=== PATIENT | female | born 1945 | race African-American/Black ===

== ENCOUNTER 2018-03-09 20:38 | Inpatient (IN) | payer MEDICARE, OTHER ==
[~2018-03-09] VITALS: Ht 165.1 cm; Wt 53.5 kg
--- NOTE | 2018-03-09 20:59 | Emergency Room Report ---
History of Present Illness General Chief Complaint: General Complaint Source: Patient, EMS Present Illness HPI Patient is a 72-year-old female brought in by EMS after increased difficulty breathing and increased confusion. Patient prior history of COPD. The patient was sent in by Dr. Carranza. The patient is normally alert and oriented and uses 2 L of oxygen. Patient was noted to have increased oxygen requirement as well as increased expiratory difficulty. Patient had the patient was noted to have some increased confusion. She was noted to have multiple medication allergies. Allergies: Coded Allergies: CODEINE (Verified Allergy, Unknown, 03/09/18) PENICILLINS (Verified Allergy, Unknown, 03/09/18) SULFA (SULFONAMIDE ANTIBIOTICS) (Verified Allergy, Unknown, 03/09/18) Patient History Past Medical History: see triage record Last Menstrual Period: n/a Reviewed Nursing Documentation: PMH: Agreed; PSxH: Agreed Nursing Documentation-PMH Hx COPD: Yes - copd Review of Systems All Other Systems: limited - by mental status Physical Exam Vital Signs Date Time Temp Pulse Resp B/P (MAP) Pulse Ox O2 Delivery O2 Flow Rate FiO2 03/09/18 20:46 97.9 92 18 140/87 96 Nasal Cannula 3.0 Sp02 EP Interpretation: reviewed, normal General Appearance: normal inspection, alert, obese, Chronically Ill Head: atraumatic ENT: normal ENT inspection, hearing grossly normal, normal voice Neck: normal inspection, full range of motion, supple, no bony tend Respiratory: accessory muscle use, wheezing Cardiovascular #1: regular rate, rhythm, no edema Gastrointestinal: normal inspection, normal bowel sounds, non tender, soft, no guarding, no hernia Genitourinary: no CVA tenderness Musculoskeletal: normal inspection, back normal, normal range of motion Neurologic: normal inspection, alert, oriented x3, responsive, 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 Differential included but was not limited to anemia, pneumonia, pneumothorax, myocardial infarction, pericardial effusion, congestive heart failure, acidosis Because of complexity of patient's case laboratory testing and imaging studies were ordered.Patient's laboratory testing was notable for elevated CO2 level on arterial blood gas. The patient was given breathing treatments. Solu-Medrol was ordered. Dr. Carranza was contacted for inpatient management due to need for inpatient monitoring and treatment. Labs Test 03/09/18 21:31 03/09/18 23:45 03/10/18 02:00 Arterial Blood pH 7.336 (7.350-7.450) Arterial Blood Partial Pressure CO2 86.3 mmHg (35.0-45.0) Arterial Blood Partial Pressure O2 102.5 mmHg (75.0-100.0) Arterial Blood HCO3 45.1 mmol/L (22.0-26.0) Arterial Blood Oxygen Saturation 97.0 % (95-100) Arterial Blood Base Excess 15.6 (-2-2) Dipesh Test Positive White Blood Count 5.0 K/UL (4.8-10.8) Red Blood Count 4.11 M/UL (4.20-5.40) Hemoglobin 11.2 G/DL (12.0-16.0) Hematocrit 36.6 % (37.0-47.0) Mean Corpuscular Volume 89 FL (80-99) Mean Corpuscular Hemoglobin 27.3 PG (27.0-31.0) Mean Corpuscular Hemoglobin Concent 30.7 G/DL (32.0-36.0) Red Cell Distribution Width 12.9 % (11.6-14.8) Platelet Count 221 K/UL (150-450) Mean Platelet Volume 8.8 FL (6.5-10.1) Neutrophils (%) (Auto) 30.9 % (45.0-75.0) Lymphocytes (%) (Auto) 41.3 % (20.0-45.0) Monocytes (%) (Auto) 15.2 % (1.0-10.0) Eosinophils (%) (Auto) 9.8 % (0.0-3.0) Basophils (%) (Auto) 2.8 % (0.0-2.0) Sodium Level 143 MMOL/L (136-145) Potassium Level 3.0 MMOL/L (3.5-5.1) Chloride Level 99 MMOL/L (98-107) Carbon Dioxide Level 40 MMOL/L (21-32) Anion Gap 3 mmol/L (5-15) Blood Urea Nitrogen 9 mg/dL (7-18) Creatinine 0.6 MG/DL (0.55-1.30) Estimat Glomerular Filtration Rate mL/min (>60) Glucose Level 152 MG/DL (74-106) Lactic Acid Level 1.40 mmol/L (0.4-2.0) Calcium Level 9.1 MG/DL (8.5-10.1) Phosphorus Level 4.4 MG/DL (2.5-4.9) Magnesium Level 1.3 MG/DL (1.8-2.4) Total Bilirubin 0.3 MG/DL (0.2-1.0) Aspartate Amino Transf (AST/SGOT) 37 U/L (15-37) Alanine Aminotransferase (ALT/SGPT) 16 U/L (12-78) Alkaline Phosphatase 62 U/L (46-116) Total Creatine Kinase 197 U/L (26-308) Creatine Kinase MB 3.8 NG/ML (0.0-3.6) Creatine Kinase MB Relative Index 1.9 Troponin I 0.018 ng/mL (0.000-0.056) Pro-B-Type Natriuretic Peptide 115 pg/mL (0-125) Total Protein 7.1 G/DL (6.4-8.2) Albumin 2.7 G/DL (3.4-5.0) Globulin 4.4 g/dL Albumin/Globulin Ratio 0.6 (1.0-2.7) Urine Color Yellow Urine Appearance Clear Urine pH 8 (4.5-8.0) Urine Specific [place] 1.015 (1.005-1.035) Urine Protein Negative (NEGATIVE) Urine Glucose (UA) Negative (NEGATIVE) Urine Ketones Negative (NEGATIVE) Urine Blood Negative (NEGATIVE) Urine Nitrite Negative (NEGATIVE) Urine Bilirubin Negative (NEGATIVE) Urine Urobilinogen 8 MG/DL (0.0-1.0) Urine Leukocyte Esterase Negative (NEGATIVE) Last Vital Signs Date Time Temp Pulse Resp B/P (MAP) Pulse Ox O2 Delivery O2 Flow Rate FiO2 03/09/18 20:46 97.9 92 18 140/87 96 Nasal Cannula 3.0 Status: unchanged Disposition: ADMITTED INPATIENT Condition: Serious Freddy Cisneros MD Mar 09, 2018 20:59
[2018-03-09 21:00] VITALS: BP 140/87
[2018-03-09] MEDS ORDERED: Albuterol/Ipratropium 3ml neb HHN ONE (21:00)
[2018-03-09] MEDS ORDERED: Solu-MEDROL 125mg Inj IVP ONE (21:15)
[2018-03-09] MEDS ORDERED: Albuterol ud Inhalation HHN ONE (22:45)
[2018-03-09 22:50] VITALS: BP 145/83
[2018-03-10] VITALS (8 sets, daily range): BP systolic 77–140; BP diastolic 79–85
[2018-03-10 00:05] LABS: BASOPHILS % (AUTO) 2.8 % (0.0-2.0); EOSINOPHILS % (AUTO) 9.8 % (0.0-3.0); HEMATOCRIT 36.6 % (37.0-47.0); HEMOGLOBIN 11.2 G/DL (12.0-16.0); LYMPHOCYTES % (AUTO) 41.3 % (20.0-45.0); MEAN CORPUSCULAR VOLUME 89 FL (80-99); MONOCYTES % (AUTO) 15.2 % (1.0-10.0); NEUTROPHILS % (AUTO) 30.9 % (45.0-75.0); PLATELET COUNT 221 K/UL (150-450); RED BLOOD COUNT 4.11 M/UL (4.20-5.40); RED CELL DISTRIBUTION WIDTH 12.9 % (11.6-14.8)
[2018-03-10 00:34] LABS: ALANINE AMINOTRANSFERASE 16 U/L (12-78); ALBUMIN 2.7 G/DL (3.4-5.0); ALBUMIN/GLOBULIN RATIO 0.6 (1.0-2.7); ALKALINE PHOSPHATASE 62 U/L (46-116); ANION GAP 3 mmol/L (5-15); ASPARTATE AMINO TRANSFERASE 37 U/L (15-37); BILIRUBIN,TOTAL 0.3 MG/DL (0.2-1.0); BLOOD UREA NITROGEN 9 mg/dL (7-18); CALCIUM 9.1 MG/DL (8.5-10.1); CHLORIDE 99 MMOL/L (98-107); CKMB 3.8 NG/ML (0.0-3.6); CREATINE KINASE 197 U/L (26-308); CREATININE 0.6 MG/DL (0.55-1.30); PHOSPHORUS 4.4 MG/DL (2.5-4.9); SODIUM 143 MMOL/L (136-145)
[2018-03-10 00:35] LABS: CARBON DIOXIDE 40 MMOL/L (21-32)
[2018-03-10 02:15] LABS: APPEARANCE,URINE CLEAR; BILIRUBIN, URINE NEGATIVE (NEGATIVE); GLUCOSE, URINE (UA) NEGATIVE (NEGATIVE); KETONES,URINE NEGATIVE (NEGATIVE); LEUKOCYTE ESTERASE ,URINE NEGATIVE (NEGATIVE); NITRITE,URINE NEGATIVE (NEGATIVE); PH,URINE 8 (4.5-8.0); PROTEIN,URINE NEGATIVE (NEGATIVE); UROBILINOGEN,URINE 8 MG/DL (0.0-1.0)
[2018-03-10 02:16] LABS: COLOR,URINE YELLOW
[2018-03-10] MEDS ORDERED: BISACODYL5 MG RECTAL (04:58)
[2018-03-10] MEDS ORDERED: ASPIRIN81 MG ORAL (04:58)
[2018-03-10] MEDS ORDERED: CATAPRES-TTS 11 EACH TDERMAL (04:58)
[2018-03-10] MEDS ORDERED: ATIVAN0.5 MG ORAL (04:58)
[2018-03-10] MEDS ORDERED: DOCUSATE SODIU100 MG ORAL (04:58)
[2018-03-10] MEDS ORDERED: BUDESONIDE0.25 MG/2 IH (04:58)
[2018-03-10] MEDS ORDERED: AMLODIPINE BESY10 MG ORAL (04:58)
[2018-03-10] MEDS ORDERED: GABAPENTIN300 MG ORAL (05:02)
[2018-03-10] MEDS ORDERED: FOLIC ACID1 MG ORAL (05:02)
[2018-03-10] MEDS ORDERED: MULTIVITAMINS1 EAC8 ORAL (05:02)
[2018-03-10] MEDS ORDERED: MILK OF MA400 MG/51 ORAL (05:02)
[2018-03-10] MEDS ORDERED: TYLENOL325 MG ORAL (05:06)
[2018-03-10] MEDS ORDERED: ASCORBIC ACID500 MG ORAL (05:06)
[2018-03-10] MEDS ORDERED: LORazepam 0.5mg tab ORAL PRN (05:15)
[2018-03-10] MEDS ORDERED: Milk of Magnesia 30ml Ud ORAL PRN (05:15)
[2018-03-10] MEDS: NovoLOG Insulin Flexpen SUBQ SCH ×7 (06:30→17:35)
[2018-03-10 07:20] LABS: BASOPHILS % (AUTO) 3.7 % (0.0-2.0); EOSINOPHILS % (AUTO) 11.4 % (0.0-3.0); HEMATOCRIT 44.3 % (37.0-47.0); HEMOGLOBIN 13.4 G/DL (12.0-16.0); LYMPHOCYTES % (AUTO) 44.3 % (20.0-45.0); MEAN CORPUSCULAR VOLUME 89 FL (80-99); MONOCYTES % (AUTO) 10.9 % (1.0-10.0); NEUTROPHILS % (AUTO) 29.7 % (45.0-75.0); PLATELET COUNT 233 K/UL (150-450); RED BLOOD COUNT 4.99 M/UL (4.20-5.40); RED CELL DISTRIBUTION WIDTH 13.2 % (11.6-14.8); WHITE BLOOD COUNT 4.8 K/UL (4.8-10.8)
[2018-03-10] MEDS: Albuterol/Ipratropium 3ml neb HHN SCH ×5 (07:20→23:06)
[2018-03-10 07:25] LABS: ALANINE AMINOTRANSFERASE 27 U/L (12-78); ALBUMIN 3.2 G/DL (3.4-5.0); ALBUMIN/GLOBULIN RATIO 0.6 (1.0-2.7); ALKALINE PHOSPHATASE 72 U/L (46-116); ANION GAP 4 mmol/L (5-15); ASPARTATE AMINO TRANSFERASE 44 U/L (15-37); BILIRUBIN,TOTAL 0.3 MG/DL (0.2-1.0); BLOOD UREA NITROGEN 9 mg/dL (7-18); CALCIUM 9.6 MG/DL (8.5-10.1); CARBON DIOXIDE 40 MMOL/L (21-32); CHLORIDE 98 MMOL/L (98-107); CREATININE 0.7 MG/DL (0.55-1.30); POTASSIUM 3.6 MMOL/L (3.5-5.1); SODIUM 142 MMOL/L (136-145)
[2018-03-10] MEDS ORDERED: Solu-MEDROL 125mg Inj IVP SCH (09:00)
[2018-03-10] MEDS: Aspirin Baby 81mg ORAL SCH (09:46)
[2018-03-10] MEDS: Docusate 100mg cap ORAL SCH ×2 (09:48→17:33)
--- NOTE | 2018-03-10 09:48 | History & Physical ---
History and Physical History & Physicial patient is seen and examined. Full Dictation in progress Bri Carranza MD Mar 10, 2018 09:48
[2018-03-10] MEDS: Enoxaparin 40mg Inj SUBQ SCH (09:49)
[2018-03-10] MEDS: Ascorbic Acid 500mg tab ORAL SCH (09:53)
--- NOTE | 2018-03-10 09:55 | General Progress Note ---
Assessment/Plan Assessment/Plan HP Dictation completed # [id number] A/P: Acute COPD exacerbation Bronchitis End Stage COPD- Opt out of hospice care Full Code ID and pulmonary services are notified Subjective Allergies: Coded Allergies: CODEINE (Verified Allergy, Unknown, 03/09/18) PENICILLINS (Verified Allergy, Unknown, 03/09/18) SULFA (SULFONAMIDE ANTIBIOTICS) (Verified Allergy, Unknown, 03/09/18) Objective Last 24 Hour Vital Signs Date Time Temp Pulse Resp B/P (MAP) Pulse Ox O2 Delivery O2 Flow Rate FiO2 03/10/18 07:25 94 24 100 Nasal Cannula 2.0 28 03/10/18 07:20 91 26 100 Nasal Cannula 2.0 28 03/10/18 04:00 98.3 102 18 129/79 (96) 97 03/10/18 04:00 101 03/10/18 03:09 Nasal Cannula 2.0 03/10/18 02:30 98.1 79 22 133/85 (101) 100 03/10/18 02:15 97.9 69 18 136/85 96 Nasal Cannula 3.0 30 03/10/18 02:15 97.9 69 18 136/85 96 Nasal Cannula 3.0 03/10/18 00:51 98 94 03/10/18 00:30 97.9 69 18 137/79 96 Nasal Cannula 3.0 03/10/18 00:30 97.9 73 18 137/79 96 Nasal Cannula 3.0 03/10/18 00:16 98 20 93 Facial 30 03/10/18 00:12 98 22 98 Nasal Cannula 1.0 03/10/18 00:00 88 27 94 Nasal Cannula 2.0 28 03/09/18 22:50 97.9 73 18 145/83 96 Nasal Cannula 3.0 03/09/18 22:50 97.9 78 18 145/83 96 Nasal Cannula 3.0 03/09/18 21:35 98 20 98 Facial 30 03/09/18 21:32 97 23 100 Bi-pap 30 03/09/18 21:20 96 27 Nasal Cannula 3.0 32 03/09/18 21:20 96 27 100 Nasal Cannula 3.0 32 03/09/18 21:00 92 18 Nasal Cannula 3.0 03/09/18 21:00 97.9 73 18 140/87 96 Nasal Cannula 3.0 03/09/18 20:46 97.9 92 18 140/87 96 Nasal Cannula 3.0 Intake and Output 03/09/18 03/10/18 19:00 07:00 Intake Total 150 ml Balance 150 ml Intake Oral 150 ml # Voids 2 Laboratory Tests 03/09/18 21:31: Arterial Blood pH 7.336L, Arterial Blood Partial Pressure CO2 86.3*H, Arterial Blood Partial Pressure O2 102.5H, Arterial Blood HCO3 45.1*H, Arterial Blood Oxygen Saturation 97.0, Arterial Blood Base Excess 15.6*H, Dipesh Test Positive 03/09/18 23:45: White Blood Count 5.0, Red Blood Count 4.11L, Hemoglobin 11.2L, Hematocrit 36.6L , Mean Corpuscular Volume 89, Mean Corpuscular Hemoglobin 27.3, Mean Corpuscular Hemoglobin Concent 30.7L, Red Cell Distribution Width 12.9, Platelet Count 221, Mean Platelet Volume 8.8, Neutrophils (%) (Auto) 30.9L, Lymphocytes (%) (Auto) 41.3, Monocytes (%) (Auto) 15.2H, Eosinophils (%) (Auto) 9.8H, Basophils (%) (Auto) 2.8H, Sodium Level 143, Potassium Level 3.0L, Chloride Level 99, Carbon Dioxide Level 40H, Anion Gap 3L, Blood Urea Nitrogen 9 , Creatinine 0.6, Estimat Glomerular Filtration Rate , Glucose Level 152H, Lactic Acid Level 1.40, Calcium Level 9.1, Phosphorus Level 4.4, Magnesium Level 1.3L, Total Bilirubin 0.3, Aspartate Amino Transf (AST/SGOT) 37, Alanine Aminotransferase (ALT/SGPT) 16, Alkaline Phosphatase 62, Total Creatine Kinase 197, Creatine Kinase MB 3.8H, Creatine Kinase MB Relative Index 1.9, Troponin I 0.018, Pro-B-Type Natriuretic Peptide 115, Total Protein 7.1, Albumin 2.7L, Globulin 4.4, Albumin/Globulin Ratio 0.6L 03/10/18 02:00: Urine Color Yellow, Urine Appearance Clear, Urine pH 8, Urine Specific [place] 1.015, Urine Protein Negative, Urine Glucose (UA) Negative, Urine Ketones Negative, Urine Blood Negative, Urine Nitrite Negative, Urine Bilirubin Negative , Urine Urobilinogen 8H, Urine Leukocyte Esterase Negative 03/10/18 07:01: White Blood Count 4.8, Red Blood Count 4.99, Hemoglobin 13.4, Hematocrit 44.3, Mean Corpuscular Volume 89, Mean Corpuscular Hemoglobin 26.8L, Mean Corpuscular Hemoglobin Concent 30.2L, Red Cell Distribution Width 13.2, Platelet Count 233, Mean Platelet Volume 8.5, Neutrophils (%) (Auto) 29.7L, Lymphocytes (%) (Auto) 44.3, Monocytes (%) (Auto) 10.9H, Eosinophils (%) (Auto) 11.4H, Basophils (%) ( Auto) 3.7H, Sodium Level 142, Potassium Level 3.6, Chloride Level 98, Carbon Dioxide Level 40H, Anion Gap 4L, Blood Urea Nitrogen 9, Creatinine 0.7, Estimat Glomerular Filtration Rate , Glucose Level 105, Calcium Level 9.6, Total Bilirubin 0.3, Aspartate Amino Transf (AST/SGOT) 44H, Alanine Aminotransferase ( ALT/SGPT) 27, Alkaline Phosphatase 72, Total Protein 8.6H, Albumin 3.2L, Globulin 5.4, Albumin/Globulin Ratio 0.6L Height (Feet): 5 Height (Inches): 5.00 Weight (Pounds): 118 Bri Carranza MD Mar 10, 2018 09:55
[2018-03-10] MEDS ORDERED: Azithromycin 250mg tab ORAL SCH (10:31)
--- NOTE | 2018-03-10 10:34 | Consultation ---
Consult Note Consult Note [facility] 03/10/18 REFERRED BY: Bri Carranza MD REASON FOR CONSULTATION: COPD exacerbation HPI: 72 F former smoker NHR with COPD on home O2 p/w AMS 2/2 COPD exacerbation. + cough, + SOB, + wheezing, no FC, no CP, no NVDC Received Levaquin, HHN's and IV steroids in the ER with some improvement PMH: COPD, HTN SHx: NHR, former tobacco ALL: CODEINE, PCN, SULFA Active Scripts Medications Dose Route/Sig Max Daily Dose Days Date Category Ascorbic Acid* (Ascorbic Acid) 500 Mg Tablet 500 Mg ORAL DAILY 03/10/18 Reported Tylenol (Acetaminophen) 325 Mg Tablet 325 Mg ORAL Q4HR PRN 03/10/18 Reported Multivitamins With Minerals* (Multivitamin With Minerals) 1 Each Tablet 1 Tab ORAL DAILY 03/10/18 Reported Milk Of Magnesia* (Magnesium Hydroxide) 400 Mg/5 Ml Oral.susp 30 Ml ORAL DAILY PRN 03/10/18 Reported Gabapentin* (Gabapentin) 300 Mg Capsule 300 Mg ORAL THREE TIMES A DAY 03/10/18 Reported Folic Acid* (Folic Acid) 1 Mg Tablet 1 Mg ORAL DAILY 03/10/18 Reported Dulcolax* (Bisacodyl) 5 Mg Tablet.dr 10 Mg RECTAL DAILY PRN 03/10/18 Reported Docusate Sodium* (Docusate Sodium) 100 Mg Capsule 100 Mg ORAL TWICE A DAY 03/10/18 Reported [id number]-9* (Clonidine) 1 Each Patch.tdwk 1 Patch TDERMAL ONCE A WEEK 03/10/18 Reported Budesonide 0.25 Mg/2 Ml Ampul.neb 0.25 Mg IH BID 03/10/18 Reported Ativan* (Lorazepam) 0.5 Mg Tablet 0.5 Mg ORAL Q8HR PRN 03/10/18 Reported Aspirin* (Aspirin) 81 Mg Tab.chew 81 Mg ORAL DAILY 03/10/18 Reported Amlodipine Besylate* (Amlodipine Besylate) 10 Mg Tablet 10 Mg ORAL DAILY 03/10/18 Reported ROS: Neg other than HPI PE: Last Vital Signs Date Time Temp Pulse Resp B/P (MAP) Pulse Ox O2 Delivery O2 Flow Rate FiO2 03/10/18 10:05 136/80 03/10/18 09:47 101 11/21/18 07:25 24 100 Nasal Cannula 2.0 28 03/10/18 04:00 98.3 NAD, awake NC/AT, OPC c MMM Supple s LAD or JVD CTA but distant RRR S/NT/ND c NABS No C/C/E Laboratory Tests Test 03/09/18 21:31 03/09/18 23:45 03/10/18 02:00 03/10/18 07:01 Arterial Blood pH 7.336 (7.350-7.450) Arterial Blood Partial Pressure CO2 86.3 mmHg (35.0-45.0) *H Arterial Blood Partial Pressure O2 102.5 mmHg (75.0-100.0) H Arterial Blood HCO3 45.1 mmol/L (22.0-26.0) *H Arterial Blood Oxygen Saturation 97.0 % (95-100) Arterial Blood Base Excess 15.6 (-2-2) *H Dipesh Test Positive White Blood Count 5.0 K/UL (4.8-10.8) 4.8 K/UL (4.8-10.8) Red Blood Count 4.11 M/UL (4.20-5.40) L 4.99 M/UL (4.20-5.40) Hemoglobin 11.2 G/DL (12.0-16.0) L 13.4 G/DL (12.0-16.0) Hematocrit 36.6 % (37.0-47.0) L 44.3 % (37.0-47.0) Mean Corpuscular Volume 89 FL (80-99) 89 FL (80-99) Mean Corpuscular Hemoglobin 27.3 PG (27.0-31.0) 26.8 PG (27.0-31.0) L Mean Corpuscular Hemoglobin Concent 30.7 G/DL (32.0-36.0) L 30.2 G/DL (32.0-36.0) L Red Cell Distribution Width 12.9 % (11.6-14.8) 13.2 % (11.6-14.8) Platelet Count 221 K/UL (150-450) 233 K/UL (150-450) Mean Platelet Volume 8.8 FL (6.5-10.1) 8.5 FL (6.5-10.1) Neutrophils (%) (Auto) 30.9 % (45.0-75.0) L 29.7 % (45.0-75.0) L Lymphocytes (%) (Auto) 41.3 % (20.0-45.0) 44.3 % (20.0-45.0) Monocytes (%) (Auto) 15.2 % (1.0-10.0) H 10.9 % (1.0-10.0) H Eosinophils (%) (Auto) 9.8 % (0.0-3.0) H 11.4 % (0.0-3.0) H Basophils (%) (Auto) 2.8 % (0.0-2.0) H 3.7 % (0.0-2.0) H Sodium Level 143 MMOL/L (136-145) 142 MMOL/L (136-145) Potassium Level 3.0 MMOL/L (3.5-5.1) L 3.6 MMOL/L (3.5-5.1) Chloride Level 99 MMOL/L (98-107) 98 MMOL/L (98-107) Carbon Dioxide Level 40 MMOL/L (21-32) H 40 MMOL/L (21-32) H Anion Gap 3 mmol/L (5-15) L 4 mmol/L (5-15) L Blood Urea Nitrogen 9 mg/dL (7-18) 9 mg/dL (7-18) Creatinine 0.6 MG/DL (0.55-1.30) 0.7 MG/DL (0.55-1.30) Estimat Glomerular Filtration Rate mL/min (>60) mL/min (>60) Glucose Level 152 MG/DL (74-106) H 105 MG/DL (74-106) Lactic Acid Level 1.40 mmol/L (0.4-2.0) Calcium Level 9.1 MG/DL (8.5-10.1) 9.6 MG/DL (8.5-10.1) Phosphorus Level 4.4 MG/DL (2.5-4.9) Magnesium Level 1.3 MG/DL (1.8-2.4) L Total Bilirubin 0.3 MG/DL (0.2-1.0) 0.3 MG/DL (0.2-1.0) Aspartate Amino Transf (AST/SGOT) 37 U/L (15-37) 44 U/L (15-37) H Alanine Aminotransferase (ALT/SGPT) 16 U/L (12-78) 27 U/L (12-78) Alkaline Phosphatase 62 U/L (46-116) 72 U/L (46-116) Total Creatine Kinase 197 U/L (26-308) Creatine Kinase MB 3.8 NG/ML (0.0-3.6) H Creatine Kinase MB Relative Index 1.9 Troponin I 0.018 ng/mL (0.000-0.056) Pro-B-Type Natriuretic Peptide 115 pg/mL (0-125) Total Protein 7.1 G/DL (6.4-8.2) 8.6 G/DL (6.4-8.2) H Albumin 2.7 G/DL (3.4-5.0) L 3.2 G/DL (3.4-5.0) L Globulin 4.4 g/dL 5.4 g/dL Albumin/Globulin Ratio 0.6 (1.0-2.7) L 0.6 (1.0-2.7) L Urine Color Yellow Urine Appearance Clear Urine pH 8 (4.5-8.0) Urine Specific [place] 1.015 (1.005-1.035) Urine Protein Negative (NEGATIVE) Urine Glucose (UA) Negative (NEGATIVE) Urine Ketones Negative (NEGATIVE) Urine Blood Negative (NEGATIVE) Urine Nitrite Negative (NEGATIVE) Urine Bilirubin Negative (NEGATIVE) Urine Urobilinogen 8 MG/DL (0.0-1.0) H Urine Leukocyte Esterase Negative (NEGATIVE) Assessment/Plan ASSESSMENT: COPD on home O2 with ACUTE exacerbation Chronic hypercapnic and hypoxemic respiratory failure Protein calorie malnutrition senior living resident Former smoker HTN PLAN: RTC and PRN HHN's Decrease SM to 40 IV TID and taper D/C Levaquin, start Azithro (D1/5) Continue BUDESONIDE HHN BID Start Spiriva, should optimize regimen as an outpatient (should likely be on LABA/LAMA/ICS) Monitor for signs of a respiratory infection BiPAP 12/5 qHS and PRN, needs to continue nocturnal NIPPV @ facility Check CT CHEST given recurrent recent exacerbations Check TTE to evaluate for PHTN Monitor volumes Continue to abstain from smoking FC, continue to discuss GOC MD Jose Maria Beckham Ashkan L. MD Mar 10, 2018 10:34
--- NOTE | 2018-03-10 10:52 | Diagnostic Imaging Report ---
Indication: Reason For Exam: SOB Technique: One view of the chest Comparison: none Findings: No acute infiltrates, effusions, or congestion. Tortuous calcified aorta. Normal heart size. Upper mediastinum unremarkable. Impression: No acute process.
[2018-03-10] MEDS: Budesonide HHN 0.25mg/2ml ud INH SCH ×2 (11:46→20:12)
[2018-03-10] MEDS: Solu-MEDROL 40mg Inj IVP SCH ×2 (12:22→17:33)
--- NOTE | 2018-03-10 12:30 | History and Physical Report ---
DATE OF ADMISSION: 03/09/2018 SOURCE OF INFORMATION: The patient and EMR. HISTORY OF PRESENT ILLNESS: The patient is a 72-year-old female with a history of end-stage COPD. The patient had been on hospice in the past. However, out of the service and she is Full Code right now. The patient residing in a long-term facility and the patient requested to be transferred to the hospital because of worsening of shortness of breath. At the initial evaluation in the emergency room, vital signs reportedly stable and the patient's baseline is on the 2 liters of nasal cannula. Oxygen on nasal cannula with the pulse oximetry of 95% - 98% on oxygen. Initial blood work in the emergency room showed WBC of 5. The initial chest x-ray is pending and the patient denies any fever or chills. The patient denies any nausea or vomitus. Denies any diarrhea or constipation. Denies any abnormal bleeding. REVIEW OF SYSTEMS: All 12 elements of review of systems reviewed. Pertinent positive and negative as above. ALLERGIES: To codeine, penicillin, and sulfa. PAST MEDICAL HISTORY: End-stage COPD, multiple episodes of hospital-acquired pneumonia, anemia, and anxiety disorder. FAMILY HISTORY: Reviewed and noncontributory. PAST SURGICAL HISTORY: Reviewed and reconciled in the chart. CURRENT HOSPITAL MEDICATIONS: Including, but not limited to Levaquin 500 mg daily, amlodipine 10 mg, sliding scale insulin, and lorazepam q. 8h. p.r.n. SOCIAL HISTORY: The patient is residing in a long-term facility. Positive for prior history of previous smoker. Denies any illicit drug abuse. PHYSICAL EXAMINATION: VITAL SIGNS: Blood pressure 130/80, pulse oximetry 99% on 5 liters of oxygen, respiratory rate 18, and temperature is 97.9. HEAD AND NECK: Atraumatic and normocephalic. CHEST: Diffuse bronchial breathing sounds. Negative for crackles. HEART: S1, S2. Regular rate and rhythm. Negative for S3. Negative for S4. ABDOMEN: Soft. No organomegaly. MUSCULOSKELETAL: Atrophied musculature. No gross lateralized motor deficits. NEUROLOGIC: Awake, alert, and oriented x3. LABORATORY DATA: Dated March 09, 2018, shows sodium of 143, potassium 3, BUN 9, creatinine 0.6. AST and ALT are within normal limits. WBC 5, hemoglobin 7.2, and platelet count of 221. ASSESSMENT: 1. Acute on chronic COPD exacerbation. 2. End-stage COPD - the patient refused hospice care and currently Full Code. 3. Hypertension. 4. Diabetes type 2. 5. Anemia. 6. Malnourishment, mild. 7. GI and DVT prophylaxis. PLAN: We will restart the empiric antibiotic regimen for the bronchitis. We will start the pulse dose of IV Solu-Medrol by Infectious Disease and Pulmonary. Pulmonary services have been consulted and notified. Bri Carranza M.D. DR: MOSES JOB#: [id number] CC: BRITANY
--- NOTE | 2018-03-10 13:35 | Diagnostic Imaging Report ---
Clinical Indication: COPD exacerbation, wheezing, shortness of breath Technique: Spiral acquisitions obtained through the chest. No IV contrast utilized, . Multiplanar reconstructions generated. Total dose length product 511.71 mGycm. CTDIvol(s) 14.96 mGy. Dose reduction achieved using automated exposure control Comparison: No comparison CTs. Reference made to chest radiograph 03/09/2018 Findings: The lungs are hyperinflated. There is an irregular opacity measuring 12 mm in diameter in the lateral right upper lobe, image 20 series 5. Bands of atelectasis and/or scarring are seen in the right lower lobe. The left lung and pleural space are clear. A few small bullae are seen at the lung apices. No infiltrates, effusions, congestion. Linear opacity in the right mainstem bronchus probably reflects secretions. The heart size is normal. No pericardial effusion. The ascending thoracic aorta is ectatic but not aneurysmal. No mediastinal or hilar mass or adenopathy. The included thyroid is unremarkable. No axillary or chest wall mass or adenopathy demonstrated. The bones demonstrate smooth thoracic kyphosis without focal compression deformity. There are degenerative spondylosis changes. There is a small sliding-type hiatal hernia. The esophagus is otherwise unremarkable. Impression: 12 mm irregular opacity in the right upper lobe. Most likely an area of scarring, but small neoplasm is not excludable. As this would be probably difficult to biopsy, short interval follow-up [address] or PET/CT is recommended for further evaluation No acute abnormality otherwise. Negative for infiltrate Hyperinflation, consistent with COPD Right lower lobe atelectasis and/or scarring Probable secretions within the trachea Small sliding-type hiatal hernia Kyphosis and degenerative spondylosis. No evidence of compression fracture The CT scanner at [facility] is accredited by the [employer] and the scans are performed using protocols designed to limit radiation exposure to as low as reasonably achievable to attain images of sufficient resolution adequate for diagnostic evaluation.
--- NOTE | 2018-03-10 13:41 | Infectious Diseases Prog Note ---
Assessment/Plan Problems: (1) COPD exacerbation Assessment & Plan: agree on zithromax and steroids , continue inhalers as needed (2) End stage COPD Assessment & Plan: on BIPAP prn and nebulizer , was on hospice care before (3) Acute respiratory failure Assessment & Plan: due to the above , continue antibiotics and taper steroids. Subjective Allergies: Coded Allergies: CODEINE (Verified Allergy, Unknown, 03/09/18) PENICILLINS (Verified Allergy, Unknown, 03/09/18) SULFA (SULFONAMIDE ANTIBIOTICS) (Verified Allergy, Unknown, 03/09/18) Objective Vital Signs Last 24 Hour Vital Signs Date Time Temp Pulse Resp B/P (MAP) Pulse Ox O2 Delivery O2 Flow Rate FiO2 03/10/18 11:46 94 24 98 Nasal Cannula 2.0 28 03/10/18 10:05 136/80 03/10/18 09:47 101 136/80 03/10/18 08:00 108 03/10/18 08:00 98.2 105 22 136/80 (98) 98 03/10/18 07:25 94 24 100 Nasal Cannula 2.0 28 03/10/18 07:20 91 26 100 Nasal Cannula 2.0 28 03/10/18 04:00 98.3 102 18 129/79 (96) 97 03/10/18 04:00 101 03/10/18 03:09 Nasal Cannula 2.0 03/10/18 02:30 98.1 79 22 133/85 (101) 100 03/10/18 02:15 97.9 69 18 136/85 96 Nasal Cannula 3.0 30 03/10/18 02:15 97.9 69 18 136/85 96 Nasal Cannula 3.0 03/10/18 00:51 98 94 03/10/18 00:30 97.9 69 18 137/79 96 Nasal Cannula 3.0 03/10/18 00:30 97.9 73 18 137/79 96 Nasal Cannula 3.0 03/10/18 00:16 98 20 93 Facial 30 03/10/18 00:12 98 22 98 Nasal Cannula 1.0 03/10/18 00:00 88 27 94 Nasal Cannula 2.0 28 03/09/18 22:50 97.9 73 18 145/83 96 Nasal Cannula 3.0 03/09/18 22:50 97.9 78 18 145/83 96 Nasal Cannula 3.0 03/09/18 21:35 98 20 98 Facial 30 03/09/18 21:32 97 23 100 Bi-pap 30 03/09/18 21:20 96 27 Nasal Cannula 3.0 32 03/09/18 21:20 96 27 100 Nasal Cannula 3.0 32 03/09/18 21:00 92 18 Nasal Cannula 3.0 03/09/18 21:00 97.9 73 18 140/87 96 Nasal Cannula 3.0 03/09/18 20:46 97.9 92 18 140/87 96 Nasal Cannula 3.0 Height (Feet): 5 Height (Inches): 5.00 Weight (Pounds): 118 Laboratory Tests Test 03/09/18 21:31 03/09/18 23:45 03/10/18 02:00 03/10/18 07:01 Arterial Blood pH 7.336 (7.350-7.450) Arterial Blood Partial Pressure CO2 86.3 mmHg (35.0-45.0) *H Arterial Blood Partial Pressure O2 102.5 mmHg (75.0-100.0) H Arterial Blood HCO3 45.1 mmol/L (22.0-26.0) *H Arterial Blood Oxygen Saturation 97.0 % (95-100) Arterial Blood Base Excess 15.6 (-2-2) *H Dipesh Test Positive White Blood Count 5.0 K/UL (4.8-10.8) 4.8 K/UL (4.8-10.8) Red Blood Count 4.11 M/UL (4.20-5.40) L 4.99 M/UL (4.20-5.40) Hemoglobin 11.2 G/DL (12.0-16.0) L 13.4 G/DL (12.0-16.0) Hematocrit 36.6 % (37.0-47.0) L 44.3 % (37.0-47.0) Mean Corpuscular Volume 89 FL (80-99) 89 FL (80-99) Mean Corpuscular Hemoglobin 27.3 PG (27.0-31.0) 26.8 PG (27.0-31.0) L Mean Corpuscular Hemoglobin Concent 30.7 G/DL (32.0-36.0) L 30.2 G/DL (32.0-36.0) L Red Cell Distribution Width 12.9 % (11.6-14.8) 13.2 % (11.6-14.8) Platelet Count 221 K/UL (150-450) 233 K/UL (150-450) Mean Platelet Volume 8.8 FL (6.5-10.1) 8.5 FL (6.5-10.1) Neutrophils (%) (Auto) 30.9 % (45.0-75.0) L 29.7 % (45.0-75.0) L Lymphocytes (%) (Auto) 41.3 % (20.0-45.0) 44.3 % (20.0-45.0) Monocytes (%) (Auto) 15.2 % (1.0-10.0) H 10.9 % (1.0-10.0) H Eosinophils (%) (Auto) 9.8 % (0.0-3.0) H 11.4 % (0.0-3.0) H Basophils (%) (Auto) 2.8 % (0.0-2.0) H 3.7 % (0.0-2.0) H Sodium Level 143 MMOL/L (136-145) 142 MMOL/L (136-145) Potassium Level 3.0 MMOL/L (3.5-5.1) L 3.6 MMOL/L (3.5-5.1) Chloride Level 99 MMOL/L (98-107) 98 MMOL/L (98-107) Carbon Dioxide Level 40 MMOL/L (21-32) H 40 MMOL/L (21-32) H Anion Gap 3 mmol/L (5-15) L 4 mmol/L (5-15) L Blood Urea Nitrogen 9 mg/dL (7-18) 9 mg/dL (7-18) Creatinine 0.6 MG/DL (0.55-1.30) 0.7 MG/DL (0.55-1.30) Estimat Glomerular Filtration Rate mL/min (>60) mL/min (>60) Glucose Level 152 MG/DL (74-106) H 105 MG/DL (74-106) Lactic Acid Level 1.40 mmol/L (0.4-2.0) Calcium Level 9.1 MG/DL (8.5-10.1) 9.6 MG/DL (8.5-10.1) Phosphorus Level 4.4 MG/DL (2.5-4.9) Magnesium Level 1.3 MG/DL (1.8-2.4) L Total Bilirubin 0.3 MG/DL (0.2-1.0) 0.3 MG/DL (0.2-1.0) Aspartate Amino Transf (AST/SGOT) 37 U/L (15-37) 44 U/L (15-37) H Alanine Aminotransferase (ALT/SGPT) 16 U/L (12-78) 27 U/L (12-78) Alkaline Phosphatase 62 U/L (46-116) 72 U/L (46-116) Total Creatine Kinase 197 U/L (26-308) Creatine Kinase MB 3.8 NG/ML (0.0-3.6) H Creatine Kinase MB Relative Index 1.9 Troponin I 0.018 ng/mL (0.000-0.056) Pro-B-Type Natriuretic Peptide 115 pg/mL (0-125) Total Protein 7.1 G/DL (6.4-8.2) 8.6 G/DL (6.4-8.2) H Albumin 2.7 G/DL (3.4-5.0) L 3.2 G/DL (3.4-5.0) L Globulin 4.4 g/dL 5.4 g/dL Albumin/Globulin Ratio 0.6 (1.0-2.7) L 0.6 (1.0-2.7) L Urine Color Yellow Urine Appearance Clear Urine pH 8 (4.5-8.0) Urine Specific [place] 1.015 (1.005-1.035) Urine Protein Negative (NEGATIVE) Urine Glucose (UA) Negative (NEGATIVE) Urine Ketones Negative (NEGATIVE) Urine Blood Negative (NEGATIVE) Urine Nitrite Negative (NEGATIVE) Urine Bilirubin Negative (NEGATIVE) Urine Urobilinogen 8 MG/DL (0.0-1.0) H Urine Leukocyte Esterase Negative (NEGATIVE) Current Medications Medications (Trade) Dose Ordered Sig/Leila Route PRN Reason Start Time Stop Time Status Last Admin Dose Admin Acetaminophen (Tylenol) 325 mg Q4HR PRN ORAL Mild Pain (Pain Scale 1-3) 03/10/18 05:15 04/09/18 05:14 03/10/18 12:24 Albuterol/ Ipratropium (Albuterol/ Ipratropium) 3 ml Q4HRT HHN 03/10/18 07:00 03/15/18 06:59 03/10/18 11:46 Amlodipine Besylate (Norvasc) 10 mg DAILY ORAL 03/10/18 09:00 04/09/18 08:59 03/10/18 09:47 Ascorbic Acid (Vitamin C) 500 mg DAILY ORAL 03/10/18 09:00 04/09/18 08:59 03/10/18 09:53 Aspirin (ASA) 81 mg DAILY ORAL 03/10/18 09:00 04/09/18 08:59 03/10/18 09:46 Azithromycin (Zithromax) 250 mg DAILY ORAL 03/11/18 09:00 03/18/18 08:59 Budesonide (Pulmicort) 0.25 mg BID INH 03/10/18 09:00 04/09/18 08:59 03/10/18 11:46 Clonidine HCl (Catapres TTS-1) 1 patch ONCE A WEEK TDERMAL 03/10/18 09:00 04/09/18 08:59 03/10/18 10:05 Dextrose (Dextrose 50%) 25 ml Q30M PRN IV Hypoglycemia 03/10/18 06:30 04/09/18 06:29 Dextrose (Dextrose 50%) 50 ml Q30M PRN IV Hypoglycemia 03/10/18 06:30 04/09/18 06:29 Docusate Sodium (Colace) 100 mg TWICE A DAY ORAL 03/10/18 09:00 04/09/18 08:59 03/10/18 09:48 Enoxaparin Sodium (Lovenox) 40 mg DAILY SUBQ 03/10/18 09:00 04/09/18 08:59 03/10/18 09:49 Folic Acid (Folate) 1 mg DAILY ORAL 03/10/18 09:00 04/09/18 08:59 03/10/18 09:47 Gabapentin (Neurontin) 300 mg THREE TIMES A DAY ORAL 03/10/18 09:00 04/09/18 08:59 03/10/18 12:22 Insulin Aspart (NovoLOG) BEFORE MEALS AND HS SUBQ 03/10/18 06:30 04/09/18 06:29 Insulin Aspart (NovoLOG) 1 units BEFORE MEALS SUBQ 03/10/18 06:30 04/09/18 06:29 Lorazepam (Ativan) 1 mg Q6H PRN ORAL For Anxiety 03/10/18 10:53 03/17/18 10:52 Magnesium Hydroxide (Mom) 30 ml DAILY PRN ORAL Constipation 03/10/18 05:15 04/09/18 05:14 Methylprednisolone Sodium Succinate (Solu-MEDROL) 40 mg TID IVP 03/10/18 13:00 04/09/18 08:59 03/10/18 12:22 Olanzapine (ZyPREXA) 5 mg BEDTIME ORAL 03/10/18 21:00 04/09/18 20:59 Pantoprazole (Protonix) 40 mg DAILY ORAL 03/10/18 09:00 04/09/18 08:59 03/10/18 09:46 Tiotropium [place] (Spiriva Inhaler) 1 puff DAILY INH 03/11/18 09:00 04/10/18 08:59 Ramírez Barry M.D. Mar 10, 2018 13:41
--- NOTE | 2018-03-10 15:45 | Consultation ---
DATE OF CONSULTATION: 03/10/2018 INFECTIOUS DISEASE CONSULTATION CONSULTING PHYSICIAN: Ramírez Barry M.D. REQUESTING PHYSICIAN: Bri Carranza M.D. REASON FOR CONSULTATION: COPD exacerbation. Recommendation for antibiotics treatment. HISTORY OF PRESENT ILLNESS: The patient is a 72-year-old, female with past medical history of COPD, end-stage disease, hypertension who was on hospice previously and was taken off now, Full Code who used to be a former smoker was sent to [facility] emergency room from assisted for cough, shortness of breath, wheezing and hypoxemia due to COPD exacerbation and altered mental status. The patient did not have any fever or chills. No chest pain. No other associated symptoms. The patient had a chest x-ray in the emergency room, did not show any acute infiltration. She received Levaquin in the emergency room and intravenous steroids and was admitted to the hospital. Infectious Disease consultation was requested for antibiotics treatment and further management. The patient admitted taking influenza vaccine and pneumonia vaccine this year. No recent smoking. No recent travel or sick contact. REVIEW OF SYSTEMS: A 14-point of system reviewed were all negative apart from the one I mentioned above in my History and Physical. PAST MEDICAL HISTORY: Significant for COPD and hypertension. ALLERGIES: She has penicillin, sulfa allergy, and codeine. MEDICATIONS: The patient received Levaquin initially and now she is on azithromycin and steroid. SOCIAL HISTORY: She is a assisted resident, used to smoke previously but not anymore. Denied using any drugs or alcohol. FAMILY HISTORY: Not contributory. PHYSICAL EXAMINATION: VITAL SIGNS: Temperature 98.2, pulse 105, respirations 22, blood pressure 136/80, saturation 98% on two liters nasal cannula. GENERAL: Elderly female, lying in bed, awake and alert, mildly wheezing, not in acute distress. HEENT: Normocephalic and atraumatic. Pupils reactive to light equally. Pale sclerae. Moist oral mucosa. No exudate. NECK: Supple. No lymphadenopathy. CARDIOVASCULAR: She is tachycardic. S1 and S2 normal. LUNGS: She had diminished breathing sounds with poor air entry on both lung silva and wheezing at the bases. ABDOMEN: Soft, nontender, and nondistended. Normal bowel sounds. No hepatosplenomegaly or ascites. EXTREMITIES: No edema or cyanosis. SKIN: No rash. No hives. LABORATORY AND DIAGNOSTIC DATA: Labs showed white count of 4.8, hemoglobin of 13.4, platelet count of 233. BUN of 9 and creatinine of 0.7. Urinalysis was negative for any infection. Imaging, chest x-ray showed no acute process. ASSESSMENT AND RECOMMENDATION: 1. COPD with exacerbation, suspect bronchitis with negative chest x-ray for any acute infiltrate. I agree on azithromycin for now. Empiric coverage with steroid, taper dose and nebulizer treatment as needed. We will screen the patient for influenza. 2. End-stage COPD. Continue BiPAP p.r.n. and nebulizer treatment. Pulmonary team is following. 3. Acute respiratory failure with hypoxemia, cough and shortness of breath due to the above. Continue supportive care. Nebulizers and oxygen to keep saturation more than 90%. Thank you for the consult. ID will continue to follow. Please feel to call with any question. Ramírez Barry M.D. DR: Frandy JOB#: [id number] CC:
--- NOTE | 2018-03-10 16:51 | Cardiology Report ---
APPROVED REPORT EXAM: Two-dimensional and M-mode echocardiogram with Doppler and color Doppler. INDICATION Congestive Heart Failure M-Mode DIMENSIONS IVSd1.4 (0.7-1.1cm)Left Atrium (MM)4.2 (1.6-4.0cm) LVDd4.1 (3.5-5.6cm)Aortic Root3.4 (2.0-3.7cm) PWd1.3 (0.7-1.1cm)Aortic Cusp Exc.1.7 (1.5-2.0cm) LVDs2.5 (2.5-4.0cm) PWs1.7 cm Technically difficult study due to poor acoustical windows. Normal left ventricular chamber size, systolic function and wall motion to extent visualized. Left ventricular ejection fraction estimated to be 65 %. Mid left ventricular hypertrophy. No evidence of pericardial effusion. All other cardiac chamber sizes are within normal limits. Focal aortic valve sclerosis with adequate cusp excursion. Thickened mitral valve leaflets with normal excursion. Mitral annulus and aortic root calcification. Pulmonic valve not well visualized. Normal tricuspid valve structure. IVC at normal size with physiologic collapse. A color flow and spectral Doppler study was performed and revealed: Trace mitral regurgitation. Mitral diastolic velocities suggest reduced left ventricular relaxation c/w mild LV diastolic dysfunction (Grade I ). Trace tricuspid regurgitation. Tricuspid systolic velocities suggests peak right ventricular systolic pressure of 23 mmHg.
--- NOTE | 2018-03-10 20:24 | Consultation ---
History of Present Illness General Date patient seen: Mar 09, 2018 Chief Complaint: General Complaint Present Illness HPI 72-year-old female with a history of end-stage COPD. the pt gets agitated and has waxing and waning of consciousness. the pt has episodes of confusions. Allergies: Coded Allergies: CODEINE (Verified Allergy, Unknown, 03/09/18) PENICILLINS (Verified Allergy, Unknown, 03/09/18) SULFA (SULFONAMIDE ANTIBIOTICS) (Verified Allergy, Unknown, 03/09/18) Medication History Scheduled Amlodipine Besylate* (Amlodipine Besylate*), 10 MG ORAL DAILY, (Reported) Ascorbic Acid* (Ascorbic Acid*), 500 MG ORAL DAILY, (Reported) Aspirin* (Aspirin*), 81 MG ORAL DAILY, (Reported) Budesonide (Budesonide), 0.25 MG IH BID, (Reported) Eukuyujxt-Jip-3* (Nxpvkyeo-Fkw-8*), 1 PATCH TDERMAL ONCE A WEEK, (Reported) Docusate Sodium* (Docusate Sodium*), 100 MG ORAL TWICE A DAY, (Reported) Folic Acid* (Folic Acid*), 1 MG ORAL DAILY, (Reported) Gabapentin* (Gabapentin*), 300 MG ORAL THREE TIMES A DAY, (Reported) Multivitamin With Minerals (Multivitamins With Minerals*), 1 TAB ORAL DAILY, ( Reported) Scheduled PRN Acetaminophen (Tylenol), 325 MG ORAL Q4HR PRN for Mild Pain (Pain Scale 1-3), ( Reported) Bisacodyl* (Dulcolax*), 10 MG RECTAL DAILY PRN for Constipation, (Reported) Lorazepam* (Ativan*), 0.5 MG ORAL Q8HR PRN for For Anxiety, (Reported) Magnesium Hydroxide* (Milk Of Magnesia*), 30 ML ORAL DAILY PRN for Constipation, (Reported) Patient History Limited by: medical condition History Provided By: Patient, Medical Record, PMD Healthcare decision maker Resuscitation status Full Code Advanced Directive on File Past Medical/Surgical History Past Medical/Surgical History: (1) Acute respiratory failure (2) COPD exacerbation (3) End stage COPD Review of Systems Psychiatric: Reports: prior hx, anxiety, depressed feelings, emotional problems Physical Exam General Appearance: alert, moderate distress, agitated Last 24 Hour Vital Signs Date Time Temp Pulse Resp B/P (MAP) Pulse Ox O2 Delivery O2 Flow Rate FiO2 03/10/18 20:15 102 24 98 Nasal Cannula 2.0 28 03/10/18 20:14 Nasal Cannula 3.0 32 03/10/18 20:14 98 Nasal Cannula 3.0 32 03/10/18 20:13 102 24 Nasal Cannula 3.0 32 03/10/18 16:00 101 03/10/18 16:00 97.2 99 20 77/79 (78) 98 03/10/18 15:07 97 22 97 Nasal Cannula 2.0 28 03/10/18 14:58 98 22 96 Nasal Cannula 2.0 28 03/10/18 12:55 98.2 03/10/18 12:00 97.5 98 22 140/79 (99) 98 03/10/18 12:00 103 03/10/18 11:46 94 24 98 Nasal Cannula 2.0 28 03/10/18 10:05 136/80 03/10/18 09:47 101 136/80 03/10/18 09:00 Nasal Cannula 2.0 03/10/18 08:00 108 03/10/18 08:00 98.2 105 22 136/80 (98) 98 03/10/18 07:25 94 24 100 Nasal Cannula 2.0 28 03/10/18 07:20 91 26 100 Nasal Cannula 2.0 28 03/10/18 04:00 98.3 102 18 129/79 (96) 97 03/10/18 04:00 101 03/10/18 03:09 Nasal Cannula 2.0 03/10/18 02:30 98.1 79 22 133/85 (101) 100 03/10/18 02:15 97.9 69 18 136/85 96 Nasal Cannula 3.0 30 03/10/18 02:15 97.9 69 18 136/85 96 Nasal Cannula 3.0 03/10/18 00:51 98 94 03/10/18 00:30 97.9 69 18 137/79 96 Nasal Cannula 3.0 03/10/18 00:30 97.9 73 18 137/79 96 Nasal Cannula 3.0 03/10/18 00:16 98 20 93 Facial 30 03/10/18 00:12 98 22 98 Nasal Cannula 1.0 03/10/18 00:00 88 27 94 Nasal Cannula 2.0 28 03/09/18 22:50 97.9 73 18 145/83 96 Nasal Cannula 3.0 03/09/18 22:50 97.9 78 18 145/83 96 Nasal Cannula 3.0 03/09/18 21:35 98 20 98 Facial 30 03/09/18 21:32 97 23 100 Bi-pap 30 03/09/18 21:20 96 27 Nasal Cannula 3.0 32 03/09/18 21:20 96 27 100 Nasal Cannula 3.0 32 03/09/18 21:00 92 18 Nasal Cannula 3.0 03/09/18 21:00 97.9 73 18 140/87 96 Nasal Cannula 3.0 03/09/18 20:46 97.9 92 18 140/87 96 Nasal Cannula 3.0 Intake and Output 03/09/18 03/10/18 19:00 07:00 Intake Total 150 ml Balance 150 ml Intake Oral 150 ml # Voids 2 Laboratory Tests Test 03/09/18 21:31 03/09/18 23:45 03/10/18 02:00 03/10/18 07:01 Arterial Blood pH 7.336 (7.350-7.450) Arterial Blood Partial Pressure CO2 86.3 mmHg (35.0-45.0) *H Arterial Blood Partial Pressure O2 102.5 mmHg (75.0-100.0) H Arterial Blood HCO3 45.1 mmol/L (22.0-26.0) *H Arterial Blood Oxygen Saturation 97.0 % (95-100) Arterial Blood Base Excess 15.6 (-2-2) *H Dipesh Test Positive White Blood Count 5.0 K/UL (4.8-10.8) 4.8 K/UL (4.8-10.8) Red Blood Count 4.11 M/UL (4.20-5.40) L 4.99 M/UL (4.20-5.40) Hemoglobin 11.2 G/DL (12.0-16.0) L 13.4 G/DL (12.0-16.0) Hematocrit 36.6 % (37.0-47.0) L 44.3 % (37.0-47.0) Mean Corpuscular Volume 89 FL (80-99) 89 FL (80-99) Mean Corpuscular Hemoglobin 27.3 PG (27.0-31.0) 26.8 PG (27.0-31.0) L Mean Corpuscular Hemoglobin Concent 30.7 G/DL (32.0-36.0) L 30.2 G/DL (32.0-36.0) L Red Cell Distribution Width 12.9 % (11.6-14.8) 13.2 % (11.6-14.8) Platelet Count 221 K/UL (150-450) 233 K/UL (150-450) Mean Platelet Volume 8.8 FL (6.5-10.1) 8.5 FL (6.5-10.1) Neutrophils (%) (Auto) 30.9 % (45.0-75.0) L 29.7 % (45.0-75.0) L Lymphocytes (%) (Auto) 41.3 % (20.0-45.0) 44.3 % (20.0-45.0) Monocytes (%) (Auto) 15.2 % (1.0-10.0) H 10.9 % (1.0-10.0) H Eosinophils (%) (Auto) 9.8 % (0.0-3.0) H 11.4 % (0.0-3.0) H Basophils (%) (Auto) 2.8 % (0.0-2.0) H 3.7 % (0.0-2.0) H Sodium Level 143 MMOL/L (136-145) 142 MMOL/L (136-145) Potassium Level 3.0 MMOL/L (3.5-5.1) L 3.6 MMOL/L (3.5-5.1) Chloride Level 99 MMOL/L (98-107) 98 MMOL/L (98-107) Carbon Dioxide Level 40 MMOL/L (21-32) H 40 MMOL/L (21-32) H Anion Gap 3 mmol/L (5-15) L 4 mmol/L (5-15) L Blood Urea Nitrogen 9 mg/dL (7-18) 9 mg/dL (7-18) Creatinine 0.6 MG/DL (0.55-1.30) 0.7 MG/DL (0.55-1.30) Estimat Glomerular Filtration Rate mL/min (>60) mL/min (>60) Glucose Level 152 MG/DL (74-106) H 105 MG/DL (74-106) Lactic Acid Level 1.40 mmol/L (0.4-2.0) Calcium Level 9.1 MG/DL (8.5-10.1) 9.6 MG/DL (8.5-10.1) Phosphorus Level 4.4 MG/DL (2.5-4.9) Magnesium Level 1.3 MG/DL (1.8-2.4) L Total Bilirubin 0.3 MG/DL (0.2-1.0) 0.3 MG/DL (0.2-1.0) Aspartate Amino Transf (AST/SGOT) 37 U/L (15-37) 44 U/L (15-37) H Alanine Aminotransferase (ALT/SGPT) 16 U/L (12-78) 27 U/L (12-78) Alkaline Phosphatase 62 U/L (46-116) 72 U/L (46-116) Total Creatine Kinase 197 U/L (26-308) Creatine Kinase MB 3.8 NG/ML (0.0-3.6) H Creatine Kinase MB Relative Index 1.9 Troponin I 0.018 ng/mL (0.000-0.056) Pro-B-Type Natriuretic Peptide 115 pg/mL (0-125) Total Protein 7.1 G/DL (6.4-8.2) 8.6 G/DL (6.4-8.2) H Albumin 2.7 G/DL (3.4-5.0) L 3.2 G/DL (3.4-5.0) L Globulin 4.4 g/dL 5.4 g/dL Albumin/Globulin Ratio 0.6 (1.0-2.7) L 0.6 (1.0-2.7) L Urine Color Yellow Urine Appearance Clear Urine pH 8 (4.5-8.0) Urine Specific [place] 1.015 (1.005-1.035) Urine Protein Negative (NEGATIVE) Urine Glucose (UA) Negative (NEGATIVE) Urine Ketones Negative (NEGATIVE) Urine Blood Negative (NEGATIVE) Urine Nitrite Negative (NEGATIVE) Urine Bilirubin Negative (NEGATIVE) Urine Urobilinogen 8 MG/DL (0.0-1.0) H Urine Leukocyte Esterase Negative (NEGATIVE) Height (Feet): 5 Height (Inches): 5.00 Weight (Pounds): 118 Medications Current Medications Medications (Trade) Dose Ordered Sig/Leila Route PRN Reason Start Time Stop Time Status Last Admin Dose Admin Acetaminophen (Tylenol) 325 mg Q4HR PRN ORAL Mild Pain (Pain Scale 1-3) 03/10/18 05:15 04/09/18 05:14 03/10/18 12:24 Albuterol/ Ipratropium (Albuterol/ Ipratropium) 3 ml Q4HRT HHN 03/10/18 07:00 03/15/18 06:59 03/10/18 20:12 Amlodipine Besylate (Norvasc) 10 mg DAILY ORAL 03/10/18 09:00 04/09/18 08:59 03/10/18 09:47 Ascorbic Acid (Vitamin C) 500 mg DAILY ORAL 03/10/18 09:00 04/09/18 08:59 03/10/18 09:53 Aspirin (ASA) 81 mg DAILY ORAL 03/10/18 09:00 04/09/18 08:59 03/10/18 09:46 Azithromycin (Zithromax) 250 mg DAILY ORAL 03/11/18 09:00 03/18/18 08:59 Budesonide (Pulmicort) 0.25 mg BID INH 03/10/18 09:00 04/09/18 08:59 03/10/18 20:12 Clonidine HCl (Catapres TTS-1) 1 patch ONCE A WEEK TDERMAL 03/10/18 09:00 04/09/18 08:59 03/10/18 10:05 Dextrose (Dextrose 50%) 25 ml Q30M PRN IV Hypoglycemia 03/10/18 06:30 04/09/18 06:29 Dextrose (Dextrose 50%) 50 ml Q30M PRN IV Hypoglycemia 03/10/18 06:30 04/09/18 06:29 Docusate Sodium (Colace) 100 mg TWICE A DAY ORAL 03/10/18 09:00 04/09/18 08:59 03/10/18 17:33 Enoxaparin Sodium (Lovenox) 40 mg DAILY SUBQ 03/10/18 09:00 04/09/18 08:59 03/10/18 09:49 Folic Acid (Folate) 1 mg DAILY ORAL 03/10/18 09:00 04/09/18 08:59 11/21/18 09:47 Gabapentin (Neurontin) 300 mg THREE TIMES A DAY ORAL 03/10/18 09:00 04/09/18 08:59 03/10/18 17:33 Insulin Aspart (NovoLOG) BEFORE MEALS AND HS SUBQ 03/10/18 06:30 04/09/18 06:29 03/10/18 13:54 Insulin Aspart (NovoLOG) 1 units BEFORE MEALS SUBQ 03/10/18 06:30 04/09/18 06:29 03/10/18 17:35 Lorazepam (Ativan) 1 mg Q6H PRN ORAL For Anxiety 03/10/18 10:53 03/17/18 10:52 Magnesium Hydroxide (Mom) 30 ml DAILY PRN ORAL Constipation 03/10/18 05:15 04/09/18 05:14 Methylprednisolone Sodium Succinate (Solu-MEDROL) 40 mg TID IVP 03/10/18 13:00 04/09/18 08:59 03/10/18 17:33 Olanzapine (ZyPREXA) 5 mg BEDTIME ORAL 03/10/18 21:00 04/09/18 20:59 Pantoprazole (Protonix) 40 mg DAILY ORAL 03/10/18 09:00 04/09/18 08:59 03/10/18 09:46 Tiotropium [place] (Spiriva Inhaler) 1 puff DAILY INH 03/11/18 09:00 04/10/18 08:59 Assessment/Plan Problem List: (1) encephalopathy due to toxin Assessment/Plan Ativan prn the pt is unable to make decisions. Sheyla Lan MD Mar 10, 2018 20:24
--- NOTE | 2018-03-10 20:25 | General Progress Note ---
Assessment/Plan Problem List: (1) encephalopathy due to toxin Status: deteriorating Assessment/Plan Ativan prn the pt is unable to make decisions. zyprexa 5mg qhs Subjective Date patient seen: Mar 10, 2018 Neurologic/Psychiatric: Reports: anxiety, depressed, emotional problems Allergies: Coded Allergies: CODEINE (Verified Allergy, Unknown, 03/09/18) PENICILLINS (Verified Allergy, Unknown, 03/09/18) SULFA (SULFONAMIDE ANTIBIOTICS) (Verified Allergy, Unknown, 03/09/18) Objective Last 24 Hour Vital Signs Date Time Temp Pulse Resp B/P (MAP) Pulse Ox O2 Delivery O2 Flow Rate FiO2 03/10/18 20:15 102 24 98 Nasal Cannula 2.0 28 03/10/18 20:14 Nasal Cannula 3.0 32 03/10/18 20:14 98 Nasal Cannula 3.0 32 03/10/18 20:13 102 24 Nasal Cannula 3.0 32 03/10/18 16:00 101 03/10/18 16:00 97.2 99 20 77/79 (78) 98 03/10/18 15:07 97 22 97 Nasal Cannula 2.0 28 03/10/18 14:58 98 22 96 Nasal Cannula 2.0 28 03/10/18 12:55 98.2 03/10/18 12:00 97.5 98 22 140/79 (99) 98 03/10/18 12:00 103 03/10/18 11:46 94 24 98 Nasal Cannula 2.0 28 03/10/18 10:05 136/80 03/10/18 09:47 101 136/80 03/10/18 09:00 Nasal Cannula 2.0 03/10/18 08:00 108 03/10/18 08:00 98.2 105 22 136/80 (98) 98 03/10/18 07:25 94 24 100 Nasal Cannula 2.0 28 03/10/18 07:20 91 26 100 Nasal Cannula 2.0 28 03/10/18 04:00 98.3 102 18 129/79 (96) 97 03/10/18 04:00 101 03/10/18 03:09 Nasal Cannula 2.0 03/10/18 02:30 98.1 79 22 133/85 (101) 100 03/10/18 02:15 97.9 69 18 136/85 96 Nasal Cannula 3.0 30 03/10/18 02:15 97.9 69 18 136/85 96 Nasal Cannula 3.0 03/10/18 00:51 98 94 03/10/18 00:30 97.9 69 18 137/79 96 Nasal Cannula 3.0 03/10/18 00:30 97.9 73 18 137/79 96 Nasal Cannula 3.0 03/10/18 00:16 98 20 93 Facial 30 03/10/18 00:12 98 22 98 Nasal Cannula 1.0 03/10/18 00:00 88 27 94 Nasal Cannula 2.0 28 03/09/18 22:50 97.9 73 18 145/83 96 Nasal Cannula 3.0 03/09/18 22:50 97.9 78 18 145/83 96 Nasal Cannula 3.0 03/09/18 21:35 98 20 98 Facial 30 03/09/18 21:32 97 23 100 Bi-pap 30 03/09/18 21:20 96 27 Nasal Cannula 3.0 32 03/09/18 21:20 96 27 100 Nasal Cannula 3.0 32 03/09/18 21:00 92 18 Nasal Cannula 3.0 03/09/18 21:00 97.9 73 18 140/87 96 Nasal Cannula 3.0 03/09/18 20:46 97.9 92 18 140/87 96 Nasal Cannula 3.0 Intake and Output 03/09/18 03/10/18 19:00 07:00 Intake Total 150 ml Balance 150 ml Intake Oral 150 ml # Voids 2 Laboratory Tests 03/09/18 21:31: Arterial Blood pH 7.336L, Arterial Blood Partial Pressure CO2 86.3*H, Arterial Blood Partial Pressure O2 102.5H, Arterial Blood HCO3 45.1*H, Arterial Blood Oxygen Saturation 97.0, Arterial Blood Base Excess 15.6*H, Dipesh Test Positive 03/09/18 23:45: White Blood Count 5.0, Red Blood Count 4.11L, Hemoglobin 11.2L, Hematocrit 36.6L , Mean Corpuscular Volume 89, Mean Corpuscular Hemoglobin 27.3, Mean Corpuscular Hemoglobin Concent 30.7L, Red Cell Distribution Width 12.9, Platelet Count 221, Mean Platelet Volume 8.8, Neutrophils (%) (Auto) 30.9L, Lymphocytes (%) (Auto) 41.3, Monocytes (%) (Auto) 15.2H, Eosinophils (%) (Auto) 9.8H, Basophils (%) (Auto) 2.8H, Sodium Level 143, Potassium Level 3.0L, Chloride Level 99, Carbon Dioxide Level 40H, Anion Gap 3L, Blood Urea Nitrogen 9 , Creatinine 0.6, Estimat Glomerular Filtration Rate , Glucose Level 152H, Lactic Acid Level 1.40, Calcium Level 9.1, Phosphorus Level 4.4, Magnesium Level 1.3L, Total Bilirubin 0.3, Aspartate Amino Transf (AST/SGOT) 37, Alanine Aminotransferase (ALT/SGPT) 16, Alkaline Phosphatase 62, Total Creatine Kinase 197, Creatine Kinase MB 3.8H, Creatine Kinase MB Relative Index 1.9, Troponin I 0.018, Pro-B-Type Natriuretic Peptide 115, Total Protein 7.1, Albumin 2.7L, Globulin 4.4, Albumin/Globulin Ratio 0.6L 03/10/18 02:00: Urine Color Yellow, Urine Appearance Clear, Urine pH 8, Urine Specific [place] 1.015, Urine Protein Negative, Urine Glucose (UA) Negative, Urine Ketones Negative, Urine Blood Negative, Urine Nitrite Negative, Urine Bilirubin Negative , Urine Urobilinogen 8H, Urine Leukocyte Esterase Negative 03/10/18 07:01: White Blood Count 4.8, Red Blood Count 4.99, Hemoglobin 13.4, Hematocrit 44.3, Mean Corpuscular Volume 89, Mean Corpuscular Hemoglobin 26.8L, Mean Corpuscular Hemoglobin Concent 30.2L, Red Cell Distribution Width 13.2, Platelet Count 233, Mean Platelet Volume 8.5, Neutrophils (%) (Auto) 29.7L, Lymphocytes (%) (Auto) 44.3, Monocytes (%) (Auto) 10.9H, Eosinophils (%) (Auto) 11.4H, Basophils (%) ( Auto) 3.7H, Sodium Level 142, Potassium Level 3.6, Chloride Level 98, Carbon Dioxide Level 40H, Anion Gap 4L, Blood Urea Nitrogen 9, Creatinine 0.7, Estimat Glomerular Filtration Rate , Glucose Level 105, Calcium Level 9.6, Total Bilirubin 0.3, Aspartate Amino Transf (AST/SGOT) 44H, Alanine Aminotransferase ( ALT/SGPT) 27, Alkaline Phosphatase 72, Total Protein 8.6H, Albumin 3.2L, Globulin 5.4, Albumin/Globulin Ratio 0.6L Height (Feet): 5 Height (Inches): 5.00 Weight (Pounds): 118 General Appearance: no apparent distress, alert, confused, agitated Sheyla Lan MD Mar 10, 2018 20:25
[2018-03-11] VITALS: BP 124/83
[2018-03-11] MEDS: Albuterol/Ipratropium 3ml neb HHN SCH ×6 (03:30→23:11)
[2018-03-11 04:00] VITALS: BP 116/76
[2018-03-11] MEDS: NovoLOG Insulin Flexpen SUBQ SCH ×7 (05:57→21:00)
[2018-03-11 07:10] LABS: HEMATOCRIT 35.8 % (37.0-47.0); HEMOGLOBIN 11.1 G/DL (12.0-16.0); MEAN CORPUSCULAR VOLUME 88 FL (80-99); PLATELET COUNT 199 K/UL (150-450); RED BLOOD COUNT 4.07 M/UL (4.20-5.40); RED CELL DISTRIBUTION WIDTH 13.1 % (11.6-14.8); WHITE BLOOD COUNT 2.4 K/UL (4.8-10.8)
[2018-03-11 07:19] LABS: ALANINE AMINOTRANSFERASE 17 U/L (12-78); ALBUMIN 2.7 G/DL (3.4-5.0); ALBUMIN/GLOBULIN RATIO 0.6 (1.0-2.7); ALKALINE PHOSPHATASE 47 U/L (46-116); ANION GAP 4 mmol/L (5-15); ASPARTATE AMINO TRANSFERASE 34 U/L (15-37); BILIRUBIN,TOTAL 0.3 MG/DL (0.2-1.0); BLOOD UREA NITROGEN 13 mg/dL (7-18); CALCIUM 8.7 MG/DL (8.5-10.1); CARBON DIOXIDE 37 MMOL/L (21-32); CHLORIDE 100 MMOL/L (98-107); CREATININE 0.7 MG/DL (0.55-1.30); POTASSIUM 3.8 MMOL/L (3.5-5.1); SODIUM 141 MMOL/L (136-145)
[2018-03-11 08:00] VITALS: BP 140/86
[2018-03-11] MEDS: Solu-MEDROL 40mg Inj IVP SCH ×3 (08:26→18:01)
[2018-03-11] MEDS: Ascorbic Acid 500mg tab ORAL SCH (08:27)
[2018-03-11] MEDS: Aspirin Baby 81mg ORAL SCH (08:27)
[2018-03-11] MEDS: Azithromycin 250mg tab ORAL SCH (08:27)
[2018-03-11] MEDS: Docusate 100mg cap ORAL SCH ×2 (08:28→18:01)
[2018-03-11] MEDS: Enoxaparin 40mg Inj SUBQ SCH (08:29)
[2018-03-11] MEDS: Budesonide HHN 0.25mg/2ml ud INH SCH ×2 (08:48→18:53)
[2018-03-11 12:00] VITALS: BP 115/67
--- NOTE | 2018-03-11 15:31 | Infectious Diseases Prog Note ---
Assessment/Plan Problems: (1) COPD exacerbation Assessment & Plan: continue zithromax and taper steroids , continue inhalers as needed (2) End stage COPD Assessment & Plan: on BIPAP prn and nebulizer , was on hospice care before (3) Acute respiratory failure Assessment & Plan: due to the above , continue antibiotics and taper steroids. Subjective Constitutional: Reports: no symptoms HEENT: Reports: no symptoms Respiratory: Reports: no symptoms Breasts: Reports: no symptoms Cardiovascular: Reports: no symptoms Gastrointestinal/Abdominal: Reports: no symptoms Genitourinary: Reports: no symptoms Neurologic: Reports: no symptoms Psychiatric: Reports: no symptoms Skin: Reports: no symptoms Endocrine: Reports: no symptoms Hematologic: Reports: no symptoms Musculoskeletal: Reports: no symptoms Allergies: Coded Allergies: CODEINE (Verified Allergy, Unknown, 03/09/18) PENICILLINS (Verified Allergy, Unknown, 03/09/18) SULFA (SULFONAMIDE ANTIBIOTICS) (Verified Allergy, Unknown, 03/09/18) Objective Vital Signs Last 24 Hour Vital Signs Date Time Temp Pulse Resp B/P (MAP) Pulse Ox O2 Delivery O2 Flow Rate FiO2 03/11/18 14:46 100 20 96 Nasal Cannula 2.0 28 03/11/18 12:00 107 03/11/18 12:00 98.7 94 20 115/67 (83) 100 03/11/18 11:19 88 18 98 Nasal Cannula 2.0 28 03/11/18 11:05 101 20 95 Nasal Cannula 2.0 28 03/11/18 09:00 88 20 98 Nasal Cannula 2.0 28 03/11/18 09:00 Nasal Cannula 2.0 03/11/18 08:48 87 20 97 Nasal Cannula 2.0 28 03/11/18 08:28 100 140/86 03/11/18 08:00 97.5 100 20 140/86 (104) 100 03/11/18 08:00 107 03/11/18 07:05 87 18 98 Nasal Cannula 2.0 28 03/11/18 06:55 Nasal Cannula 2.0 28 03/11/18 06:55 85 17 98 Nasal Cannula 2.0 28 03/11/18 06:55 98 Nasal Cannula 2.0 28 03/11/18 05:25 76 20 96 03/11/18 04:00 84 03/11/18 04:00 98.4 83 19 116/76 (89) 97 03/11/18 03:39 90 23 99 Bi-pap 28 03/11/18 03:32 89 16 99 Bi-pap 28 03/11/18 03:30 83 16 99 Facial 28 03/11/18 01:46 92 17 97 Facial 28 03/11/18 00:00 83 03/11/18 00:00 98.2 102 17 124/83 (97) 98 03/10/18 23:16 92 22 99 Bi-pap 28 03/10/18 23:13 89 19 99 Facial 28 03/10/18 23:07 68 20 99 Nasal Cannula 2.0 28 03/10/18 21:00 Nasal Cannula 2.0 03/10/18 20:15 102 24 98 Nasal Cannula 2.0 28 03/10/18 20:14 Nasal Cannula 3.0 32 03/10/18 20:14 98 Nasal Cannula 3.0 32 03/10/18 20:13 102 24 Nasal Cannula 3.0 32 03/10/18 20:00 98.1 108 18 128/81 (97) 98 03/10/18 20:00 106 03/10/18 16:00 101 03/10/18 16:00 97.2 99 20 77/79 (78) 98 Height (Feet): 5 Height (Inches): 5.00 Weight (Pounds): 118 General Appearance: WD/WN, no acute distress HEENT: normocephalic, atraumatic, anicteric, mucous membranes moist, PERRL, EOMI, pharynx normal, supple Respiratory/Chest: chest wall non-tender, no respiratory distress, no accessory muscle use, decreased breath sounds, expiratory wheezing Cardiovascular: normal peripheral pulses, normal rate, regular rhythm, no gallop/murmur, no JVD Abdomen: normal bowel sounds, soft, non tender, no organomegaly, non distended , no mass, no scars Genitourinary: normal external genitalia Extremities: no cyanosis, no clubbing Skin: no rash, no lesions, no ulcers Neurologic/Psychiatric: alert, oriented x 3, responsive Lymphatic: no neck adenopathy, no groin adenopathy Musculoskeletal: normal muscle bulk, no effusion Microbiology Date/Time Source Procedure Growth Status 03/09/18 23:50 Blood Blood Culture - Preliminary NO GROWTH AFTER 24 HOURS Resulted 03/09/18 23:45 Blood Blood Culture - Preliminary NO GROWTH AFTER 24 HOURS Resulted Laboratory Tests Test 03/11/18 04:55 White Blood Count 2.4 K/UL (4.8-10.8) L Red Blood Count 4.07 M/UL (4.20-5.40) L Hemoglobin 11.1 G/DL (12.0-16.0) L Hematocrit 35.8 % (37.0-47.0) L Mean Corpuscular Volume 88 FL (80-99) Mean Corpuscular Hemoglobin 27.1 PG (27.0-31.0) Mean Corpuscular Hemoglobin Concent 30.9 G/DL (32.0-36.0) L Red Cell Distribution Width 13.1 % (11.6-14.8) Platelet Count 199 K/UL (150-450) Mean Platelet Volume 7.8 FL (6.5-10.1) Neutrophils (%) (Auto) % (45.0-75.0) Lymphocytes (%) (Auto) % (20.0-45.0) Monocytes (%) (Auto) % (1.0-10.0) Eosinophils (%) (Auto) % (0.0-3.0) Basophils (%) (Auto) % (0.0-2.0) Differential Total Cells Counted 100 Neutrophils % (Manual) 64 % (45-75) Lymphocytes % (Manual) 35 % (20-45) Monocytes % (Manual) 1 % (1-10) Eosinophils % (Manual) 0 % (0-3) Basophils % (Manual) 0 % (0-2) Band Neutrophils 0 % (0-8) Platelet Estimate Adequate Platelet Morphology Normal Hypochromasia 1+ Sodium Level 141 MMOL/L (136-145) Potassium Level 3.8 MMOL/L (3.5-5.1) Chloride Level 100 MMOL/L (98-107) Carbon Dioxide Level 37 MMOL/L (21-32) H Anion Gap 4 mmol/L (5-15) L Blood Urea Nitrogen 13 mg/dL (7-18) Creatinine 0.7 MG/DL (0.55-1.30) Estimat Glomerular Filtration Rate mL/min (>60) Glucose Level 149 MG/DL (74-106) H Calcium Level 8.7 MG/DL (8.5-10.1) Total Bilirubin 0.3 MG/DL (0.2-1.0) Aspartate Amino Transf (AST/SGOT) 34 U/L (15-37) Alanine Aminotransferase (ALT/SGPT) 17 U/L (12-78) Alkaline Phosphatase 47 U/L (46-116) Total Protein 7.3 G/DL (6.4-8.2) Albumin 2.7 G/DL (3.4-5.0) L Globulin 4.6 g/dL Albumin/Globulin Ratio 0.6 (1.0-2.7) L Current Medications Medications (Trade) Dose Ordered Sig/Leila Route PRN Reason Start Time Stop Time Status Last Admin Dose Admin Acetaminophen (Tylenol) 325 mg Q4HR PRN ORAL Mild Pain (Pain Scale 1-3) 03/10/18 05:15 04/09/18 05:14 03/10/18 12:24 Albuterol/ Ipratropium (Albuterol/ Ipratropium) 3 ml Q4HRT HHN 03/10/18 07:00 03/15/18 06:59 03/11/18 14:46 Amlodipine Besylate (Norvasc) 10 mg DAILY ORAL 03/10/18 09:00 04/09/18 08:59 03/11/18 08:28 Ascorbic Acid (Vitamin C) 500 mg DAILY ORAL 03/10/18 09:00 04/09/18 08:59 03/11/18 08:27 Aspirin (ASA) 81 mg DAILY ORAL 03/10/18 09:00 04/09/18 08:59 03/11/18 08:27 Azithromycin (Zithromax) 250 mg DAILY ORAL 03/11/18 09:00 03/18/18 08:59 03/11/18 08:27 Budesonide (Pulmicort) 0.25 mg BID INH 03/10/18 09:00 04/09/18 08:59 03/11/18 08:48 Clonidine HCl (Catapres TTS-1) 1 patch ONCE A WEEK TDERMAL 03/10/18 09:00 04/09/18 08:59 03/10/18 10:05 Dextrose (Dextrose 50%) 25 ml Q30M PRN IV Hypoglycemia 03/10/18 06:30 04/09/18 06:29 Dextrose (Dextrose 50%) 50 ml Q30M PRN IV Hypoglycemia 03/10/18 06:30 04/09/18 06:29 Docusate Sodium (Colace) 100 mg TWICE A DAY ORAL 03/10/18 09:00 04/09/18 08:59 03/11/18 08:28 Enoxaparin Sodium (Lovenox) 40 mg DAILY SUBQ 03/10/18 09:00 04/09/18 08:59 03/11/18 08:29 Folic Acid (Folate) 1 mg DAILY ORAL 03/10/18 09:00 04/09/18 08:59 03/11/18 08:27 Gabapentin (Neurontin) 300 mg THREE TIMES A DAY ORAL 03/10/18 09:00 04/09/18 08:59 03/11/18 12:08 Insulin Aspart (NovoLOG) BEFORE MEALS AND HS SUBQ 03/10/18 06:30 04/09/18 06:29 03/11/18 05:57 Insulin Aspart (NovoLOG) 1 units BEFORE MEALS SUBQ 03/10/18 06:30 04/09/18 06:29 03/11/18 05:57 Lorazepam (Ativan) 1 mg Q6H PRN ORAL For Anxiety 03/10/18 10:53 03/17/18 10:52 Magnesium Hydroxide (Mom) 30 ml DAILY PRN ORAL Constipation 03/10/18 05:15 04/09/18 05:14 Methylprednisolone Sodium Succinate (Solu-MEDROL) 40 mg TID IVP 03/10/18 13:00 04/09/18 08:59 03/11/18 14:49 Olanzapine (ZyPREXA) 5 mg BEDTIME ORAL 03/10/18 21:00 04/09/18 20:59 03/10/18 21:11 Pantoprazole (Protonix) 40 mg DAILY ORAL 03/10/18 09:00 04/09/18 08:59 03/11/18 08:27 Tiotropium [place] (Spiriva Inhaler) 1 puff DAILY INH 03/11/18 09:00 04/10/18 08:59 03/11/18 08:48 Ramírez Barry M.D. Mar 11, 2018 15:31
--- NOTE | 2018-03-11 15:34 | General Progress Note ---
Progress Note Progress Note SUBJECTIVE: I am feeling better OBJECTIVE: SITTING IN BED COMFORTABLE, AWAKE AND ALERT, NO sob PHYSICAL EXAMINATION: VITAL SIGNS: Blood pressure 130/80, pulse oximetry 99% on 5 liters of oxygen, respiratory rate 18, and temperature is 97.9. HEAD AND NECK: Atraumatic and normocephalic. CHEST: Diffuse bronchial breathing sounds. Negative for crackles. HEART: S1, S2. Regular rate and rhythm. Negative for S3. Negative for S4. ABDOMEN: Soft. No organomegaly. MUSCULOSKELETAL: Atrophied musculature. No gross lateralized motor deficits. NEUROLOGIC: Awake, alert, and oriented x3. LABORATORY DATA: Dated March 09, 2018, shows sodium of 143, potassium 3, BUN 9, creatinine 0.6. AST and ALT are within normal limits. WBC 5, hemoglobin 7.2, and platelet count of 221. ASSESSMENT: 1. Acute on chronic COPD exacerbation. 2. End-stage COPD - the patient was on hospice care and currently Full Code. 3. Hypertension. 4. Diabetes type 2. 5. Anemia. 6. Malnourishment, mild. 7. RUL 12 MM LUNG MASS 8. GI and DVT prophylaxis. PLAN: continue empiric antibiotic regimen for the bronchitis. taper steroids . follow up CT scan in 3 months follow Infectious Disease and Pulmonary recommendations Ramírez Barry M.D. Mar 11, 2018 15:34
[2018-03-11 16:00] VITALS: BP 112/83
--- NOTE | 2018-03-11 19:38 | Pulmonology Progress Note ---
Assessment/Plan Assessment/Plan COPD on home O2 with ACUTE exacerbation Chronic hypercapnic and hypoxemic respiratory failure Protein calorie malnutrition alf resident Former smoker HTN PLAN: steroid taper next 24 hours Abx nebs and MDI Monitor for signs of a respiratory infection BiPAP 12/5 qHS and PRN, needs to continue nocturnal NIPPV @ facility RUL mass on CT will need out pt PE no PAH on echo Monitor volumes Continue to abstain from smoking FC, continue to discuss GOC Subjective Constitutional: Reports: no symptoms HEENT: Repors: no symptoms Respiratory: Reports: dry cough, shortness of breath Gastrointestinal/Abdominal: Reports: no symptoms Genitourinary: Reports: no symptoms Neurologic: Reports: no symptoms Allergies: Coded Allergies: CODEINE (Verified Allergy, Unknown, 03/09/18) PENICILLINS (Verified Allergy, Unknown, 03/09/18) SULFA (SULFONAMIDE ANTIBIOTICS) (Verified Allergy, Unknown, 03/09/18) Subjective no events no cp nv not getting oob using bipap at night no fever noted toerlating po Objective Last 24 Hour Vital Signs Date Time Temp Pulse Resp B/P (MAP) Pulse Ox O2 Delivery O2 Flow Rate FiO2 03/11/18 19:09 100 20 99 Nasal Cannula 2.0 28 03/11/18 18:59 103 20 99 Nasal Cannula 2.0 28 03/11/18 18:58 103 20 99 Nasal Cannula 2.0 28 03/11/18 18:50 Nasal Cannula 2.0 28 03/11/18 18:50 98 Nasal Cannula 2.0 28 03/11/18 18:50 100 20 98 Nasal Cannula 2.0 28 03/11/18 16:00 98.0 102 20 112/83 (93) 100 03/11/18 16:00 125 03/11/18 15:00 99 17 98 Nasal Cannula 2.0 28 03/11/18 14:46 100 20 96 Nasal Cannula 2.0 28 03/11/18 12:00 107 03/11/18 12:00 98.7 94 20 115/67 (83) 100 03/11/18 11:19 88 18 98 Nasal Cannula 2.0 28 03/11/18 11:05 101 20 95 Nasal Cannula 2.0 28 03/11/18 09:00 88 20 98 Nasal Cannula 2.0 28 03/11/18 09:00 Nasal Cannula 2.0 03/11/18 08:48 87 20 97 Nasal Cannula 2.0 28 03/11/18 08:28 100 140/86 03/11/18 08:00 97.5 100 20 140/86 (104) 100 03/11/18 08:00 107 03/11/18 07:05 87 18 98 Nasal Cannula 2.0 28 03/11/18 06:55 Nasal Cannula 2.0 28 03/11/18 06:55 85 17 98 Nasal Cannula 2.0 28 03/11/18 06:55 98 Nasal Cannula 2.0 28 03/11/18 05:25 76 20 96 03/11/18 04:00 84 03/11/18 04:00 98.4 83 19 116/76 (89) 97 03/11/18 03:39 90 23 99 Bi-pap 28 03/11/18 03:32 89 16 99 Bi-pap 28 03/11/18 03:30 83 16 99 Facial 28 03/11/18 01:46 92 17 97 Facial 28 03/11/18 00:00 83 03/11/18 00:00 98.2 102 17 124/83 (97) 98 03/10/18 23:16 92 22 99 Bi-pap 28 03/10/18 23:13 89 19 99 Facial 28 03/10/18 23:07 68 20 99 Nasal Cannula 2.0 28 03/10/18 21:00 Nasal Cannula 2.0 03/10/18 20:15 102 24 98 Nasal Cannula 2.0 28 03/10/18 20:14 Nasal Cannula 3.0 32 03/10/18 20:14 98 Nasal Cannula 3.0 32 03/10/18 20:13 102 24 Nasal Cannula 3.0 32 03/10/18 20:00 98.1 108 18 128/81 (97) 98 03/10/18 20:00 106 Intake and Output 03/10/18 03/11/18 18:59 06:59 Intake Total 330 ml 240 ml Output Total 300 ml Balance 30 ml 240 ml Intake Oral 330 ml 240 ml Output Urine Total 300 ml # Voids 1 # Bowel Movements 1 General Appearance: WD/WN Respiratory/Chest: lungs clear, normal breath sounds Cardiovascular: normal peripheral pulses, regular rhythm Abdomen: normal bowel sounds, no organomegaly, non distended, no scars Neurologic/Psychiatric: no motor/sensory deficits, alert, oriented x 3, normal mood/affect Musculoskeletal: normal muscle bulk, no effusion Microbiology Date/Time Source Procedure Growth Status 03/09/18 23:50 Blood Blood Culture - Preliminary NO GROWTH AFTER 24 HOURS Resulted 03/09/18 23:45 Blood Blood Culture - Preliminary NO GROWTH AFTER 24 HOURS Resulted Laboratory Tests 03/11/18 04:55: White Blood Count 2.4L, Red Blood Count 4.07L, Hemoglobin 11.1L, Hematocrit 35.8L, Mean Corpuscular Volume 88, Mean Corpuscular Hemoglobin 27.1, Mean Corpuscular Hemoglobin Concent 30.9L, Red Cell Distribution Width 13.1, Platelet Count 199, Mean Platelet Volume 7.8, Neutrophils (%) (Auto) , Lymphocytes (%) (Auto) , Monocytes (%) (Auto) , Eosinophils (%) (Auto) , Basophils (%) (Auto) , Differential Total Cells Counted 100, Neutrophils % ( Manual) 64, Lymphocytes % (Manual) 35, Monocytes % (Manual) 1, Eosinophils % ( Manual) 0, Basophils % (Manual) 0, Band Neutrophils 0, Platelet Estimate Adequate, Platelet Morphology Normal, Hypochromasia 1+, Sodium Level 141, Potassium Level 3.8, Chloride Level 100, Carbon Dioxide Level 37H, Anion Gap 4L , Blood Urea Nitrogen 13, Creatinine 0.7, Estimat Glomerular Filtration Rate , Glucose Level 149H, Calcium Level 8.7, Total Bilirubin 0.3, Aspartate Amino Transf (AST/SGOT) 34, Alanine Aminotransferase (ALT/SGPT) 17, Alkaline Phosphatase 47, Total Protein 7.3, Albumin 2.7L, Globulin 4.6, Albumin/Globulin Ratio 0.6L Current Medications Medications (Trade) Dose Ordered Sig/Leila Route PRN Reason Start Time Stop Time Status Last Admin Dose Admin Acetaminophen (Tylenol) 325 mg Q4HR PRN ORAL Mild Pain (Pain Scale 1-3) 03/10/18 05:15 04/09/18 05:14 03/10/18 12:24 Albuterol/ Ipratropium (Albuterol/ Ipratropium) 3 ml Q4HRT HHN 03/10/18 07:00 03/15/18 06:59 03/11/18 18:54 Amlodipine Besylate (Norvasc) 10 mg DAILY ORAL 03/10/18 09:00 04/09/18 08:59 03/11/18 08:28 Ascorbic Acid (Vitamin C) 500 mg DAILY ORAL 03/10/18 09:00 04/09/18 08:59 03/11/18 08:27 Aspirin (ASA) 81 mg DAILY ORAL 03/10/18 09:00 04/09/18 08:59 03/11/18 08:27 Azithromycin (Zithromax) 250 mg DAILY ORAL 03/11/18 09:00 03/18/18 08:59 03/11/18 08:27 Budesonide (Pulmicort) 0.25 mg BID INH 03/10/18 09:00 04/09/18 08:59 03/11/18 18:53 Clonidine HCl (Catapres TTS-1) 1 patch ONCE A WEEK TDERMAL 03/10/18 09:00 04/09/18 08:59 03/10/18 10:05 Dextrose (Dextrose 50%) 25 ml Q30M PRN IV Hypoglycemia 03/10/18 06:30 04/09/18 06:29 Dextrose (Dextrose 50%) 50 ml Q30M PRN IV Hypoglycemia 03/10/18 06:30 04/09/18 06:29 Docusate Sodium (Colace) 100 mg TWICE A DAY ORAL 03/10/18 09:00 04/09/18 08:59 03/11/18 18:01 Enoxaparin Sodium (Lovenox) 40 mg DAILY SUBQ 03/10/18 09:00 04/09/18 08:59 03/11/18 08:29 Folic Acid (Folate) 1 mg DAILY ORAL 03/10/18 09:00 04/09/18 08:59 03/11/18 08:27 Gabapentin (Neurontin) 300 mg THREE TIMES A DAY ORAL 03/10/18 09:00 04/09/18 08:59 03/11/18 18:01 Insulin Aspart (NovoLOG) BEFORE MEALS AND HS SUBQ 03/10/18 06:30 04/09/18 06:29 03/11/18 17:40 Insulin Aspart (NovoLOG) 1 units BEFORE MEALS SUBQ 03/10/18 06:30 04/09/18 06:29 03/11/18 17:41 Lorazepam (Ativan) 1 mg Q6H PRN ORAL For Anxiety 03/10/18 10:53 03/17/18 10:52 Magnesium Hydroxide (Mom) 30 ml DAILY PRN ORAL Constipation 03/10/18 05:15 04/09/18 05:14 Methylprednisolone Sodium Succinate (Solu-MEDROL) 40 mg TID IVP 03/10/18 13:00 04/09/18 08:59 03/11/18 18:01 Olanzapine (ZyPREXA) 5 mg BEDTIME ORAL 03/10/18 21:00 04/09/18 20:59 03/10/18 21:11 Pantoprazole (Protonix) 40 mg DAILY ORAL 03/10/18 09:00 04/09/18 08:59 03/11/18 08:27 Tiotropium [place] (Spiriva Inhaler) 1 puff DAILY INH 03/11/18 09:00 04/10/18 08:59 03/11/18 08:48 Radha Madsen DO Mar 11, 2018 19:38
[2018-03-11 20:00] VITALS: BP 119/71
[2018-03-11] MEDS: LORazepam 1mg tab ORAL PRN (21:05)
[2018-03-12] VITALS: BP 112/68
[2018-03-12] MEDS: Albuterol/Ipratropium 3ml neb HHN SCH ×6 (03:10→23:00)
[2018-03-12 04:00] VITALS: BP 139/88
[2018-03-12] MEDS: NovoLOG Insulin Flexpen SUBQ SCH ×7 (06:04→21:20)
[2018-03-12 06:15] LABS: BASOPHILS % (AUTO) 0.2 % (0.0-2.0); HEMATOCRIT 32.5 % (37.0-47.0); HEMOGLOBIN 10.3 G/DL (12.0-16.0); LYMPHOCYTES % (AUTO) 23.7 % (20.0-45.0); MEAN CORPUSCULAR VOLUME 88 FL (80-99); PLATELET COUNT 217 K/UL (150-450); RED BLOOD COUNT 3.69 M/UL (4.20-5.40); RED CELL DISTRIBUTION WIDTH 12.8 % (11.6-14.8)
[2018-03-12 06:30] LABS: ALANINE AMINOTRANSFERASE 19 U/L (12-78); ALBUMIN 2.7 G/DL (3.4-5.0); ALBUMIN/GLOBULIN RATIO 0.6 (1.0-2.7); ALKALINE PHOSPHATASE 48 U/L (46-116); ANION GAP 3 mmol/L (5-15); ASPARTATE AMINO TRANSFERASE 27 U/L (15-37); BILIRUBIN,TOTAL 0.2 MG/DL (0.2-1.0); BLOOD UREA NITROGEN 16 mg/dL (7-18); CALCIUM 8.6 MG/DL (8.5-10.1); CARBON DIOXIDE 40 MMOL/L (21-32); CHLORIDE 100 MMOL/L (98-107); CREATININE 0.7 MG/DL (0.55-1.30); POTASSIUM 3.2 MMOL/L (3.5-5.1); SODIUM 143 MMOL/L (136-145)
[2018-03-12 08:00] VITALS: BP 121/67
[2018-03-12] MEDS: Aspirin Baby 81mg ORAL SCH (08:32)
[2018-03-12] MEDS: Docusate 100mg cap ORAL SCH ×2 (08:32→17:43)
[2018-03-12] MEDS: Ascorbic Acid 500mg tab ORAL SCH (08:32)
[2018-03-12] MEDS: Solu-MEDROL 40mg Inj IVP SCH ×3 (08:36→17:43)
[2018-03-12] MEDS: Azithromycin 250mg tab ORAL SCH (08:36)
[2018-03-12] MEDS: Enoxaparin 40mg Inj SUBQ SCH (08:38)
[2018-03-12] MEDS: Budesonide HHN 0.25mg/2ml ud INH SCH ×2 (09:51→19:30)
[2018-03-12 12:00] VITALS: BP 117/74
--- NOTE | 2018-03-12 13:13 | Infectious Diseases Prog Note ---
Assessment/Plan Problems: (1) COPD exacerbation Assessment & Plan: continue zithromax and taper steroids , continue inhalers as needed (2) End stage COPD Assessment & Plan: on BIPAP prn and nebulizer , was on hospice care before (3) Acute respiratory failure Assessment & Plan: due to the above , continue antibiotics and taper steroids. (4) Right upper lobe pulmonary nodule Assessment & Plan: repeat CT chest in three months Subjective Constitutional: Reports: no symptoms HEENT: Reports: no symptoms Respiratory: Reports: no symptoms Breasts: Reports: no symptoms Cardiovascular: Reports: no symptoms Gastrointestinal/Abdominal: Reports: no symptoms Genitourinary: Reports: no symptoms Neurologic: Reports: no symptoms Psychiatric: Reports: no symptoms Skin: Reports: no symptoms Endocrine: Reports: no symptoms Hematologic: Reports: no symptoms Musculoskeletal: Reports: no symptoms Allergies: Coded Allergies: CODEINE (Verified Allergy, Unknown, 03/09/18) PENICILLINS (Verified Allergy, Unknown, 03/09/18) SULFA (SULFONAMIDE ANTIBIOTICS) (Verified Allergy, Unknown, 03/09/18) Objective Vital Signs Last 24 Hour Vital Signs Date Time Temp Pulse Resp B/P (MAP) Pulse Ox O2 Delivery O2 Flow Rate FiO2 03/12/18 12:22 92 18 99 Nasal Cannula 2.0 28 03/12/18 12:14 89 18 99 Nasal Cannula 2.0 28 03/12/18 12:14 91 18 99 Nasal Cannula 2.0 28 03/12/18 09:59 99 20 99 Nasal Cannula 2.0 28 03/12/18 09:52 95 20 98 Nasal Cannula 2.0 28 03/12/18 09:00 Nasal Cannula 2.0 03/12/18 08:33 99 121/67 03/12/18 08:00 98.0 99 121/67 (85) 03/12/18 08:00 103 03/12/18 07:50 90 18 99 Nasal Cannula 2.0 28 03/12/18 07:50 Nasal Cannula 2.0 28 03/12/18 07:50 98 Nasal Cannula 2.0 28 03/12/18 07:40 100 18 99 Nasal Cannula 2.0 28 03/12/18 05:26 85 20 98 Facial 28 03/12/18 04:00 85 03/12/18 04:00 97.9 98 19 139/88 (105) 98 03/12/18 03:20 88 22 98 Bi-pap 28 03/12/18 03:10 87 23 97 Bi-pap 28 03/12/18 03:10 87 23 97 Facial 28 03/12/18 01:26 89 22 99 Facial 28 03/12/18 00:00 92 03/12/18 00:00 98.2 95 18 112/68 (83) 100 03/11/18 23:22 96 22 99 Bi-pap 28 03/11/18 23:11 88 22 98 Bi-pap 28 03/11/18 23:10 95 22 98 Facial 28 03/11/18 21:00 Nasal Cannula 2.0 03/11/18 20:00 98.5 106 20 119/71 (87) 100 03/11/18 20:00 116 03/11/18 19:09 100 20 99 Nasal Cannula 2.0 28 03/11/18 18:59 103 20 99 Nasal Cannula 2.0 28 03/11/18 18:58 103 20 99 Nasal Cannula 2.0 28 03/11/18 18:50 Nasal Cannula 2.0 28 03/11/18 18:50 98 Nasal Cannula 2.0 28 03/11/18 18:50 100 20 98 Nasal Cannula 2.0 28 03/11/18 16:00 98.0 102 20 112/83 (93) 100 03/11/18 16:00 125 03/11/18 15:00 99 17 98 Nasal Cannula 2.0 28 03/11/18 14:46 100 20 96 Nasal Cannula 2.0 28 Height (Feet): 5 Height (Inches): 5.00 Weight (Pounds): 118 General Appearance: WD/WN, no acute distress HEENT: normocephalic, atraumatic, anicteric, mucous membranes moist, PERRL Respiratory/Chest: chest wall non-tender, no respiratory distress, no accessory muscle use, decreased breath sounds Cardiovascular: normal peripheral pulses, normal rate, regular rhythm, no gallop/murmur, no JVD Abdomen: normal bowel sounds, soft, non tender, no organomegaly, non distended , no mass, no scars Genitourinary: normal external genitalia Extremities: no cyanosis, no clubbing Skin: no rash, no lesions, no ulcers Neurologic/Psychiatric: alert, oriented x 3, responsive Lymphatic: no neck adenopathy, no groin adenopathy Microbiology Date/Time Source Procedure Growth Status 03/09/18 23:50 Blood Blood Culture - Preliminary NO GROWTH AFTER 48 HOURS Resulted 03/09/18 23:45 Blood Blood Culture - Preliminary NO GROWTH AFTER 48 HOURS Resulted 03/10/18 08:00 Nasal Nares MRSA Culture - Final NO METHICILLIN RESISTANT STAPH AUREUS... Complete 03/10/18 08:00 Rectum VRE Culture - Final NO VANCOMYCIN RESISTANT ENTEROCOCCUS ... Complete 03/10/18 08:00 Rectum - Final NO CARBAPENEM-RESISTANT ENTEROBACTERI... Complete Laboratory Tests Test 03/12/18 05:45 White Blood Count 5.0 K/UL (4.8-10.8) # Red Blood Count 3.69 M/UL (4.20-5.40) L Hemoglobin 10.3 G/DL (12.0-16.0) L Hematocrit 32.5 % (37.0-47.0) L Mean Corpuscular Volume 88 FL (80-99) Mean Corpuscular Hemoglobin 27.9 PG (27.0-31.0) Mean Corpuscular Hemoglobin Concent 31.6 G/DL (32.0-36.0) L Red Cell Distribution Width 12.8 % (11.6-14.8) Platelet Count 217 K/UL (150-450) Mean Platelet Volume 9.1 FL (6.5-10.1) Neutrophils (%) (Auto) 70.0 % (45.0-75.0) Lymphocytes (%) (Auto) 23.7 % (20.0-45.0) Monocytes (%) (Auto) 6.0 % (1.0-10.0) Eosinophils (%) (Auto) 0.0 % (0.0-3.0) Basophils (%) (Auto) 0.2 % (0.0-2.0) Sodium Level 143 MMOL/L (136-145) Potassium Level 3.2 MMOL/L (3.5-5.1) L Chloride Level 100 MMOL/L (98-107) Carbon Dioxide Level 40 MMOL/L (21-32) H Anion Gap 3 mmol/L (5-15) L Blood Urea Nitrogen 16 mg/dL (7-18) Creatinine 0.7 MG/DL (0.55-1.30) Estimat Glomerular Filtration Rate mL/min (>60) Glucose Level 141 MG/DL (74-106) H Calcium Level 8.6 MG/DL (8.5-10.1) Total Bilirubin 0.2 MG/DL (0.2-1.0) Aspartate Amino Transf (AST/SGOT) 27 U/L (15-37) Alanine Aminotransferase (ALT/SGPT) 19 U/L (12-78) Alkaline Phosphatase 48 U/L (46-116) Total Protein 7.0 G/DL (6.4-8.2) Albumin 2.7 G/DL (3.4-5.0) L Globulin 4.3 g/dL Albumin/Globulin Ratio 0.6 (1.0-2.7) L Current Medications Medications (Trade) Dose Ordered Sig/Leila Route PRN Reason Start Time Stop Time Status Last Admin Dose Admin Acetaminophen (Tylenol) 325 mg Q4HR PRN ORAL Mild Pain (Pain Scale 1-3) 03/10/18 05:15 04/09/18 05:14 03/10/18 12:24 Albuterol/ Ipratropium (Albuterol/ Ipratropium) 3 ml Q4HRT HHN 03/10/18 07:00 03/15/18 06:59 03/12/18 11:00 Amlodipine Besylate (Norvasc) 10 mg DAILY ORAL 03/10/18 09:00 04/09/18 08:59 03/12/18 08:33 Ascorbic Acid (Vitamin C) 500 mg DAILY ORAL 03/10/18 09:00 04/09/18 08:59 03/12/18 08:32 Aspirin (ASA) 81 mg DAILY ORAL 03/10/18 09:00 04/09/18 08:59 03/12/18 08:32 Azithromycin (Zithromax) 250 mg DAILY ORAL 03/11/18 09:00 03/18/18 08:59 03/12/18 08:36 Budesonide (Pulmicort) 0.25 mg BID INH 03/10/18 09:00 04/09/18 08:59 03/12/18 09:51 Clonidine HCl (Catapres TTS-1) 1 patch ONCE A WEEK TDERMAL 03/10/18 09:00 04/09/18 08:59 03/10/18 10:05 Dextrose (Dextrose 50%) 25 ml Q30M PRN IV Hypoglycemia 03/10/18 06:30 04/09/18 06:29 Dextrose (Dextrose 50%) 50 ml Q30M PRN IV Hypoglycemia 03/10/18 06:30 04/09/18 06:29 Docusate Sodium (Colace) 100 mg TWICE A DAY ORAL 03/10/18 09:00 04/09/18 08:59 03/12/18 08:32 Enoxaparin Sodium (Lovenox) 40 mg DAILY SUBQ 03/10/18 09:00 04/09/18 08:59 03/12/18 08:38 Folic Acid (Folate) 1 mg DAILY ORAL 03/10/18 09:00 04/09/18 08:59 03/12/18 08:36 Gabapentin (Neurontin) 300 mg THREE TIMES A DAY ORAL 03/10/18 09:00 04/09/18 08:59 03/12/18 12:11 Insulin Aspart (NovoLOG) BEFORE MEALS AND HS SUBQ 03/10/18 06:30 04/09/18 06:29 03/12/18 12:09 Insulin Aspart (NovoLOG) 1 units BEFORE MEALS SUBQ 03/10/18 06:30 04/09/18 06:29 03/12/18 12:06 Lorazepam (Ativan) 1 mg Q6H PRN ORAL For Anxiety 03/10/18 10:53 03/17/18 10:52 03/11/18 21:05 Magnesium Hydroxide (Mom) 30 ml DAILY PRN ORAL Constipation 03/10/18 05:15 04/09/18 05:14 Methylprednisolone Sodium Succinate (Solu-MEDROL) 40 mg TID IVP 03/10/18 13:00 04/09/18 08:59 03/12/18 12:11 Olanzapine (ZyPREXA) 5 mg BEDTIME ORAL 03/10/18 21:00 04/09/18 20:59 03/11/18 21:05 Pantoprazole (Protonix) 40 mg DAILY ORAL 03/10/18 09:00 04/09/18 08:59 03/12/18 08:35 Tiotropium [place] (Spiriva Inhaler) 1 puff DAILY INH 03/11/18 09:00 04/10/18 08:59 03/12/18 09:51 Ramírez Barry M.D. Mar 12, 2018 13:13
--- NOTE | 2018-03-12 13:14 | General Progress Note ---
Progress Note Progress Note covering for Dr Carranza SUBJECTIVE: I am feeling ok OBJECTIVE: SITTING IN BED COMFORTABLE, AWAKE AND ALERT, NO sob PHYSICAL EXAMINATION: VITAL SIGNS: Blood pressure 130/80, pulse oximetry 99% on 5 liters of oxygen, respiratory rate 18, and temperature is 97.9. HEAD AND NECK: Atraumatic and normocephalic. CHEST: Diffuse bronchial breathing sounds. Negative for crackles. HEART: S1, S2. Regular rate and rhythm. Negative for S3. Negative for S4. ABDOMEN: Soft. No organomegaly. MUSCULOSKELETAL: Atrophied musculature. No gross lateralized motor deficits. NEUROLOGIC: Awake, alert, and oriented x3. LABORATORY DATA: reviewed ASSESSMENT: 1. Acute on chronic COPD exacerbation. 2. End-stage COPD - the patient was on hospice care and currently Full Code. 3. Hypertension. 4. Diabetes type 2. 5. Anemia. 6. Malnourishment, mild. 7. RUL 12 MM LUNG MASS 8. GI and DVT prophylaxis. PLAN: continue empiric antibiotic regimen for the bronchitis. taper steroids . follow up CT scan in 3 months follow Infectious Disease and Pulmonary recommendations Ramírez Barry M.D. Mar 12, 2018 13:14
[2018-03-12] MEDS: LORazepam 1mg tab ORAL PRN (15:58)
[2018-03-12 16:00] VITALS: BP 120/79
[2018-03-12 20:00] VITALS: BP 128/75
--- NOTE | 2018-03-12 21:05 | Pulmonology Progress Note ---
Assessment/Plan Assessment/Plan COPD on home O2 with ACUTE exacerbation Chronic hypercapnic and hypoxemic respiratory failure Protein calorie malnutrition half-way resident Former smoker HTN PLAN: steroid taper to q 12 Abx nebs and MDI Monitor for signs of a respiratory infection BiPAP 12/5 qHS and PRN, needs to continue nocturnal NIPPV @ facility RUL mass on CT will need out pt PE no PAH on echo Monitor volumes Continue to abstain from smoking FC, continue to discuss GOC dc planning Subjective Constitutional: Reports: no symptoms HEENT: Repors: no symptoms Respiratory: Reports: no symptoms Cardiovascular: Reports: no symptoms Allergies: Coded Allergies: CODEINE (Verified Allergy, Unknown, 03/09/18) PENICILLINS (Verified Allergy, Unknown, 03/09/18) SULFA (SULFONAMIDE ANTIBIOTICS) (Verified Allergy, Unknown, 03/09/18) Subjective no events no cp nv not getting oob using bipap at night no fever noted tolerating po no fever Objective Last 24 Hour Vital Signs Date Time Temp Pulse Resp B/P (MAP) Pulse Ox O2 Delivery O2 Flow Rate FiO2 03/12/18 20:00 98.1 110 18 128/75 (92) 99 03/12/18 19:41 105 18 100 Nasal Cannula 2.0 28 03/12/18 19:40 105 20 100 Nasal Cannula 2.0 28 03/12/18 19:33 103 18 99 Nasal Cannula 2.0 28 03/12/18 19:32 Nasal Cannula 2.0 28 03/12/18 19:32 99 Nasal Cannula 2.0 28 03/12/18 19:31 108 20 99 Nasal Cannula 2.0 28 03/12/18 16:18 102 18 100 Nasal Cannula 2.0 28 03/12/18 16:10 98 18 100 Nasal Cannula 2.0 28 03/12/18 16:00 117 03/12/18 16:00 97.0 111 20 120/79 (93) 100 03/12/18 12:22 92 18 99 Nasal Cannula 2.0 28 03/12/18 12:14 89 18 99 Nasal Cannula 2.0 28 03/12/18 12:14 91 18 99 Nasal Cannula 2.0 28 03/12/18 12:00 97.9 96 20 117/74 (88) 99 03/12/18 09:59 99 20 99 Nasal Cannula 2.0 28 03/12/18 09:52 95 20 98 Nasal Cannula 2.0 28 03/12/18 09:00 Nasal Cannula 2.0 03/12/18 08:33 99 121/67 03/12/18 08:01 103 03/12/18 08:00 98.0 99 121/67 (85) 03/12/18 08:00 103 03/12/18 07:50 90 18 99 Nasal Cannula 2.0 28 03/12/18 07:50 Nasal Cannula 2.0 28 03/12/18 07:50 98 Nasal Cannula 2.0 28 03/12/18 07:40 100 18 99 Nasal Cannula 2.0 28 03/12/18 05:26 85 20 98 Facial 28 03/12/18 04:00 85 03/12/18 04:00 97.9 98 19 139/88 (105) 98 03/12/18 03:20 88 22 98 Bi-pap 28 03/12/18 03:10 87 23 97 Bi-pap 28 03/12/18 03:10 87 23 97 Facial 28 03/12/18 01:26 89 22 99 Facial 28 03/12/18 00:00 92 03/12/18 00:00 98.2 95 18 112/68 (83) 100 03/11/18 23:22 96 22 99 Bi-pap 28 03/11/18 23:11 88 22 98 Bi-pap 28 03/11/18 23:10 95 22 98 Facial 28 Intake and Output 03/11/18 03/12/18 18:59 06:59 Intake Total 360 ml 360 ml Balance 360 ml 360 ml Intake Oral 360 ml 360 ml # Voids 3 1 General Appearance: WD/WN Respiratory/Chest: rhonchi Cardiovascular: normal rate, regular rhythm, murmur diastolic, murmur systolic Abdomen: soft, non tender, no organomegaly Neurologic/Psychiatric: alert, responsive Lymphatic: no neck adenopathy Musculoskeletal: no effusion Microbiology Date/Time Source Procedure Growth Status 03/09/18 23:50 Blood Blood Culture - Preliminary NO GROWTH AFTER 48 HOURS Resulted 03/09/18 23:45 Blood Blood Culture - Preliminary NO GROWTH AFTER 48 HOURS Resulted 03/10/18 08:00 Nasal Nares MRSA Culture - Final NO METHICILLIN RESISTANT STAPH AUREUS... Complete 03/10/18 08:00 Rectum VRE Culture - Final NO VANCOMYCIN RESISTANT ENTEROCOCCUS ... Complete 03/10/18 08:00 Rectum - Final NO CARBAPENEM-RESISTANT ENTEROBACTERI... Complete Laboratory Tests 03/12/18 05:45: White Blood Count 5.0#, Red Blood Count 3.69L, Hemoglobin 10.3L, Hematocrit 32.5L, Mean Corpuscular Volume 88, Mean Corpuscular Hemoglobin 27.9, Mean Corpuscular Hemoglobin Concent 31.6L, Red Cell Distribution Width 12.8, Platelet Count 217, Mean Platelet Volume 9.1, Neutrophils (%) (Auto) 70.0, Lymphocytes (%) (Auto) 23.7, Monocytes (%) (Auto) 6.0, Eosinophils (%) (Auto) 0.0, Basophils (%) (Auto) 0.2, Sodium Level 143, Potassium Level 3.2L, Chloride Level 100, Carbon Dioxide Level 40H, Anion Gap 3L, Blood Urea Nitrogen 16, Creatinine 0.7, Estimat Glomerular Filtration Rate , Glucose Level 141H, Calcium Level 8.6, Total Bilirubin 0.2, Aspartate Amino Transf (AST/SGOT) 27, Alanine Aminotransferase (ALT/SGPT) 19, Alkaline Phosphatase 48, Total Protein 7.0, Albumin 2.7L, Globulin 4.3, Albumin/Globulin Ratio 0.6L Current Medications Medications (Trade) Dose Ordered Sig/Leila Route PRN Reason Start Time Stop Time Status Last Admin Dose Admin Acetaminophen (Tylenol) 325 mg Q4HR PRN ORAL Mild Pain (Pain Scale 1-3) 03/10/18 05:15 04/09/18 05:14 03/10/18 12:24 Albuterol/ Ipratropium (Albuterol/ Ipratropium) 3 ml Q4HRT HHN 03/10/18 07:00 03/15/18 06:59 03/12/18 19:30 Amlodipine Besylate (Norvasc) 10 mg DAILY ORAL 03/10/18 09:00 04/09/18 08:59 03/12/18 08:33 Ascorbic Acid (Vitamin C) 500 mg DAILY ORAL 03/10/18 09:00 04/09/18 08:59 03/12/18 08:32 Aspirin (ASA) 81 mg DAILY ORAL 03/10/18 09:00 04/09/18 08:59 03/12/18 08:32 Azithromycin (Zithromax) 250 mg DAILY ORAL 03/11/18 09:00 03/18/18 08:59 03/12/18 08:36 Budesonide (Pulmicort) 0.25 mg BID INH 03/10/18 09:00 04/09/18 08:59 03/12/18 19:30 Clonidine HCl (Catapres TTS-1) 1 patch ONCE A WEEK TDERMAL 03/10/18 09:00 04/09/18 08:59 03/10/18 10:05 Dextrose (Dextrose 50%) 25 ml Q30M PRN IV Hypoglycemia 03/10/18 06:30 04/09/18 06:29 Dextrose (Dextrose 50%) 50 ml Q30M PRN IV Hypoglycemia 03/10/18 06:30 04/09/18 06:29 Docusate Sodium (Colace) 100 mg TWICE A DAY ORAL 03/10/18 09:00 04/09/18 08:59 03/12/18 17:43 Enoxaparin Sodium (Lovenox) 40 mg DAILY SUBQ 03/10/18 09:00 04/09/18 08:59 03/12/18 08:38 Folic Acid (Folate) 1 mg DAILY ORAL 03/10/18 09:00 04/09/18 08:59 03/12/18 08:36 Gabapentin (Neurontin) 300 mg THREE TIMES A DAY ORAL 03/10/18 09:00 04/09/18 08:59 03/12/18 17:43 Insulin Aspart (NovoLOG) BEFORE MEALS AND HS SUBQ 03/10/18 06:30 04/09/18 06:29 03/12/18 17:37 Insulin Aspart (NovoLOG) 1 units BEFORE MEALS SUBQ 03/10/18 06:30 04/09/18 06:29 03/12/18 17:38 Lorazepam (Ativan) 1 mg Q6H PRN ORAL For Anxiety 03/10/18 10:53 03/17/18 10:52 03/12/18 15:58 Magnesium Hydroxide (Mom) 30 ml DAILY PRN ORAL Constipation 03/10/18 05:15 04/09/18 05:14 Methylprednisolone Sodium Succinate (Solu-MEDROL) 40 mg TID IVP 03/10/18 13:00 04/09/18 08:59 03/12/18 17:43 Olanzapine (ZyPREXA) 5 mg BEDTIME ORAL 03/10/18 21:00 04/09/18 20:59 03/11/18 21:05 Pantoprazole (Protonix) 40 mg DAILY ORAL 03/10/18 09:00 04/09/18 08:59 03/12/18 08:35 Tiotropium [place] (Spiriva Inhaler) 1 puff DAILY INH 03/11/18 09:00 04/10/18 08:59 03/12/18 09:51 Radha Madsen DO Mar 12, 2018 21:05
[2018-03-13] VITALS: BP 122/73
[2018-03-13] MEDS: LORazepam 1mg tab ORAL PRN ×2 (00:06→20:38)
[2018-03-13] MEDS: Albuterol/Ipratropium 3ml neb HHN SCH ×6 (03:26→22:29)
[2018-03-13] MEDS: NovoLOG Insulin Flexpen SUBQ SCH ×7 (06:10→21:49)
[2018-03-13 08:00] VITALS: BP 127/71
[2018-03-13] MEDS: Aspirin Baby 81mg ORAL SCH (08:29)
[2018-03-13] MEDS: Azithromycin 250mg tab ORAL SCH (08:29)
[2018-03-13] MEDS: Docusate 100mg cap ORAL SCH ×2 (08:29→17:10)
[2018-03-13] MEDS: Ascorbic Acid 500mg tab ORAL SCH (08:29)
[2018-03-13] MEDS: Solu-MEDROL 40mg Inj IVP SCH ×2 (08:30→20:38)
[2018-03-13] MEDS: Enoxaparin 40mg Inj SUBQ SCH (08:36)
[2018-03-13 09:04] LABS: ALANINE AMINOTRANSFERASE 26 U/L (12-78); ALBUMIN 3.2 G/DL (3.4-5.0); ALBUMIN/GLOBULIN RATIO 0.7 (1.0-2.7); ALKALINE PHOSPHATASE 65 U/L (46-116); ANION GAP 5 mmol/L (5-15); ASPARTATE AMINO TRANSFERASE 34 U/L (15-37); BILIRUBIN,TOTAL 0.2 MG/DL (0.2-1.0); BLOOD UREA NITROGEN 16 mg/dL (7-18); CARBON DIOXIDE 38 MMOL/L (21-32); CHLORIDE 101 MMOL/L (98-107); CREATININE 0.7 MG/DL (0.55-1.30); POTASSIUM 3.9 MMOL/L (3.5-5.1); SODIUM 144 MMOL/L (136-145)
[2018-03-13] MEDS: Budesonide HHN 0.25mg/2ml ud INH SCH ×2 (09:17→19:22)
[2018-03-13 12:00] VITALS: BP 115/69
--- NOTE | 2018-03-13 14:16 | Infectious Diseases Prog Note ---
Assessment/Plan Problems: (1) COPD exacerbation Assessment & Plan: continue zithromax and taper steroids , continue inhalers as needed (2) End stage COPD Assessment & Plan: on BIPAP prn and nebulizer , was on hospice care before (3) Acute respiratory failure Assessment & Plan: due to the above , continue antibiotics and taper steroids. (4) Right upper lobe pulmonary nodule Assessment & Plan: repeat CT chest in three months Subjective Constitutional: Reports: no symptoms HEENT: Reports: no symptoms Respiratory: Reports: dry cough Breasts: Reports: no symptoms Cardiovascular: Reports: no symptoms Gastrointestinal/Abdominal: Reports: no symptoms Genitourinary: Reports: no symptoms Neurologic: Reports: no symptoms Psychiatric: Reports: no symptoms Skin: Reports: no symptoms Endocrine: Reports: no symptoms Hematologic: Reports: no symptoms Musculoskeletal: Reports: no symptoms Allergies: Coded Allergies: CODEINE (Verified Allergy, Unknown, 03/09/18) PENICILLINS (Verified Allergy, Unknown, 03/09/18) SULFA (SULFONAMIDE ANTIBIOTICS) (Verified Allergy, Unknown, 03/09/18) Objective Vital Signs Last 24 Hour Vital Signs Date Time Temp Pulse Resp B/P (MAP) Pulse Ox O2 Delivery O2 Flow Rate FiO2 03/13/18 12:00 98.6 95 20 115/69 (84) 99 03/13/18 10:44 99 20 99 Nasal Cannula 2.0 03/13/18 10:38 100 20 96 Nasal Cannula 2.0 28 03/13/18 09:27 100 20 100 Nasal Cannula 2.0 03/13/18 09:22 97 20 99 Nasal Cannula 2.0 03/13/18 09:00 Nasal Cannula 2.0 03/13/18 08:30 97 127/71 03/13/18 08:00 98.9 97 16 127/71 (89) 100 03/13/18 08:00 105 03/13/18 07:08 98 Nasal Cannula 2.0 03/13/18 07:08 Nasal Cannula 2.0 28 03/13/18 06:55 89 20 100 Nasal Cannula 2.0 03/13/18 06:46 95 22 99 Nasal Cannula 2.0 03/13/18 04:00 88 03/13/18 03:34 84 23 99 Bi-pap 03/13/18 03:24 83 25 96 Facial 28 03/13/18 03:24 83 25 96 Bi-pap 28 03/13/18 01:07 83 24 98 Facial 28 03/13/18 00:00 98.3 98 18 122/73 (89) 100 03/13/18 00:00 83 03/12/18 23:50 99 18 100 Bi-pap 28 03/12/18 23:03 88 18 97 Bi-pap 28 03/12/18 23:01 88 21 97 Facial 28 03/12/18 21:00 Nasal Cannula 2.0 03/12/18 20:00 98.1 110 18 128/75 (92) 99 03/12/18 20:00 110 03/12/18 19:41 105 18 100 Nasal Cannula 2.0 28 03/12/18 19:40 105 20 100 Nasal Cannula 2.0 28 03/12/18 19:33 103 18 99 Nasal Cannula 2.0 28 03/12/18 19:32 Nasal Cannula 2.0 28 03/12/18 19:32 99 Nasal Cannula 2.0 28 03/12/18 19:31 108 20 99 Nasal Cannula 2.0 28 03/12/18 16:18 102 18 100 Nasal Cannula 2.0 28 03/12/18 16:10 98 18 100 Nasal Cannula 2.0 28 03/12/18 16:00 117 03/12/18 16:00 97.0 111 20 120/79 (93) 100 Height (Feet): 5 Height (Inches): 5.00 Weight (Pounds): 118 General Appearance: WD/WN, no acute distress HEENT: normocephalic, atraumatic, anicteric, mucous membranes moist, PERRL Respiratory/Chest: chest wall non-tender, lungs clear, no respiratory distress , no accessory muscle use, decreased breath sounds Cardiovascular: normal peripheral pulses, normal rate, regular rhythm, no gallop/murmur, no JVD Abdomen: normal bowel sounds, soft, non tender, no organomegaly, non distended , no mass, no scars Genitourinary: normal external genitalia Extremities: no cyanosis, no clubbing Skin: no rash, no lesions, no ulcers Neurologic/Psychiatric: alert, oriented x 3, responsive Lymphatic: no neck adenopathy, no groin adenopathy Musculoskeletal: normal muscle bulk, no effusion Laboratory Tests Test 03/13/18 06:05 Sodium Level 144 MMOL/L (136-145) Potassium Level 3.9 MMOL/L (3.5-5.1) Chloride Level 101 MMOL/L (98-107) Carbon Dioxide Level 38 MMOL/L (21-32) H Anion Gap 5 mmol/L (5-15) Blood Urea Nitrogen 16 mg/dL (7-18) Creatinine 0.7 MG/DL (0.55-1.30) Estimat Glomerular Filtration Rate mL/min (>60) Glucose Level 124 MG/DL (74-106) H Calcium Level 9.0 MG/DL (8.5-10.1) Magnesium Level 2.0 MG/DL (1.8-2.4) Total Bilirubin 0.2 MG/DL (0.2-1.0) Aspartate Amino Transf (AST/SGOT) 34 U/L (15-37) Alanine Aminotransferase (ALT/SGPT) 26 U/L (12-78) Alkaline Phosphatase 65 U/L (46-116) Total Protein 8.1 G/DL (6.4-8.2) Albumin 3.2 G/DL (3.4-5.0) L Globulin 4.9 g/dL Albumin/Globulin Ratio 0.7 (1.0-2.7) L Current Medications Medications (Trade) Dose Ordered Sig/Leila Route PRN Reason Start Time Stop Time Status Last Admin Dose Admin Acetaminophen (Tylenol) 325 mg Q4HR PRN ORAL Mild Pain (Pain Scale 1-3) 03/10/18 05:15 04/09/18 05:14 03/10/18 12:24 Albuterol/ Ipratropium (Albuterol/ Ipratropium) 3 ml Q4HRT HHN 03/10/18 07:00 03/15/18 06:59 03/13/18 10:38 Amlodipine Besylate (Norvasc) 10 mg DAILY ORAL 03/10/18 09:00 04/09/18 08:59 03/13/18 08:30 Ascorbic Acid (Vitamin C) 500 mg DAILY ORAL 03/10/18 09:00 04/09/18 08:59 03/13/18 08:29 Aspirin (ASA) 81 mg DAILY ORAL 03/10/18 09:00 04/09/18 08:59 03/13/18 08:29 Azithromycin (Zithromax) 250 mg DAILY ORAL 03/11/18 09:00 03/18/18 08:59 03/13/18 08:29 Budesonide (Pulmicort) 0.25 mg BID INH 03/10/18 09:00 04/09/18 08:59 03/13/18 09:17 Clonidine HCl (Catapres TTS-1) 1 patch ONCE A WEEK TDERMAL 03/10/18 09:00 04/09/18 08:59 03/10/18 10:05 Dextrose (Dextrose 50%) 25 ml Q30M PRN IV Hypoglycemia 03/10/18 06:30 04/09/18 06:29 Dextrose (Dextrose 50%) 50 ml Q30M PRN IV Hypoglycemia 03/10/18 06:30 04/09/18 06:29 Docusate Sodium (Colace) 100 mg TWICE A DAY ORAL 03/10/18 09:00 04/09/18 08:59 03/13/18 08:29 Enoxaparin Sodium (Lovenox) 40 mg DAILY SUBQ 03/10/18 09:00 04/09/18 08:59 03/13/18 08:36 Folic Acid (Folate) 1 mg DAILY ORAL 03/10/18 09:00 04/09/18 08:59 03/13/18 08:29 Gabapentin (Neurontin) 300 mg THREE TIMES A DAY ORAL 03/10/18 09:00 04/09/18 08:59 03/13/18 12:32 Insulin Aspart (NovoLOG) BEFORE MEALS AND HS SUBQ 03/10/18 06:30 04/09/18 06:29 03/13/18 11:30 Insulin Aspart (NovoLOG) 1 units BEFORE MEALS SUBQ 03/10/18 06:30 04/09/18 06:29 03/13/18 11:29 Lorazepam (Ativan) 1 mg Q6H PRN ORAL For Anxiety 03/10/18 10:53 03/17/18 10:52 03/13/18 00:06 Magnesium Hydroxide (Mom) 30 ml DAILY PRN ORAL Constipation 03/10/18 05:15 04/09/18 05:14 Methylprednisolone Sodium Succinate (Solu-MEDROL) 40 mg EVERY 12 HOURS IVP 03/13/18 09:00 04/09/18 08:59 03/13/18 08:30 Olanzapine (ZyPREXA) 5 mg BEDTIME ORAL 03/10/18 21:00 04/09/18 20:59 03/12/18 21:20 Pantoprazole (Protonix) 40 mg DAILY ORAL 03/10/18 09:00 04/09/18 08:59 03/13/18 08:28 Tiotropium [place] (Spiriva Inhaler) 1 puff DAILY INH 03/11/18 09:00 04/10/18 08:59 03/13/18 09:17 Ramírez Barry M.D. Mar 13, 2018 14:16
--- NOTE | 2018-03-13 14:19 | General Progress Note ---
Progress Note Progress Note covering for Dr Carranza SUBJECTIVE: I had mild SOB, but no palpitation OBJECTIVE: she was lying in bed, awake and alert, had SOB earlier , no chest pain or palpitation PHYSICAL EXAMINATION: VITAL SIGNS: reviewed and stable HEAD AND NECK: Atraumatic and normocephalic. CHEST: Diffuse bronchial breathing sounds. Negative for crackles. HEART: S1, S2. Regular rate and rhythm. Negative for S3. Negative for S4. ABDOMEN: Soft. No organomegaly. MUSCULOSKELETAL: Atrophied musculature. No gross lateralized motor deficits. NEUROLOGIC: Awake, alert, and oriented x3. LABORATORY DATA: reviewed ASSESSMENT: 1. Acute on chronic COPD exacerbation. 2. End-stage COPD - the patient was on hospice care and currently Full Code. 3. Hypertension. 4. Diabetes type 2. 5. Anemia. 6. Malnourishment, mild. 7. RUL 12 MM LUNG MASS 8. GI and DVT prophylaxis. 9. recurrent PVC PLAN: continue empiric antibiotic regimen for bronchitis. taper steroids . follow up CT scan in 3 months follow Infectious Disease and Pulmonary recommendations consult cardiology for recurrent PVC, check electrolytes Ramírez Barry M.D. Mar 13, 2018 14:19
--- NOTE | 2018-03-13 14:55 | Cardiac Electrophysiology PN ---
Subjective Subjective [id number] Objective Last 24 Hour Vital Signs Date Time Temp Pulse Resp B/P (MAP) Pulse Ox O2 Delivery O2 Flow Rate FiO2 03/13/18 14:45 101 20 100 Nasal Cannula 2.0 28 03/13/18 14:36 102 20 98 Nasal Cannula 2.0 28 03/13/18 12:00 98.6 95 20 115/69 (84) 99 03/13/18 10:44 99 20 99 Nasal Cannula 2.0 28 03/13/18 10:38 100 20 96 Nasal Cannula 2.0 28 03/13/18 09:27 100 20 100 Nasal Cannula 2.0 28 03/13/18 09:22 97 20 99 Nasal Cannula 2.0 28 03/13/18 09:00 Nasal Cannula 2.0 03/13/18 08:30 97 127/71 03/13/18 08:00 98.9 97 16 127/71 (89) 100 03/13/18 08:00 105 03/13/18 07:08 98 Nasal Cannula 2.0 28 03/13/18 07:08 Nasal Cannula 2.0 28 03/13/18 06:55 89 20 100 Nasal Cannula 2.0 28 03/13/18 06:46 95 22 99 Nasal Cannula 2.0 28 03/13/18 04:00 88 03/13/18 03:34 84 23 99 Bi-pap 28 03/13/18 03:24 83 25 96 Facial 28 03/13/18 03:24 83 25 96 Bi-pap 28 03/13/18 01:07 83 24 98 Facial 28 03/13/18 00:00 98.3 98 18 122/73 (89) 100 03/13/18 00:00 83 03/12/18 23:50 99 18 100 Bi-pap 28 03/12/18 23:03 88 18 97 Bi-pap 28 03/12/18 23:01 88 21 97 Facial 28 03/12/18 21:00 Nasal Cannula 2.0 03/12/18 20:00 98.1 110 18 128/75 (92) 99 03/12/18 20:00 110 03/12/18 19:41 105 18 100 Nasal Cannula 2.0 28 03/12/18 19:40 105 20 100 Nasal Cannula 2.0 28 03/12/18 19:33 103 18 99 Nasal Cannula 2.0 28 03/12/18 19:32 Nasal Cannula 2.0 28 03/12/18 19:32 99 Nasal Cannula 2.0 28 03/12/18 19:31 108 20 99 Nasal Cannula 2.0 28 03/12/18 16:18 102 18 100 Nasal Cannula 2.0 28 03/12/18 16:10 98 18 100 Nasal Cannula 2.0 28 03/12/18 16:00 117 03/12/18 16:00 97.0 111 20 120/79 (93) 100 Intake and Output 03/12/18 03/13/18 19:00 07:00 Intake Total 700 ml Balance 700 ml Intake Oral 700 ml # Voids 5 5 Laboratory Tests Test 03/13/18 06:05 Sodium Level 144 MMOL/L (136-145) Potassium Level 3.9 MMOL/L (3.5-5.1) Chloride Level 101 MMOL/L (98-107) Carbon Dioxide Level 38 MMOL/L (21-32) H Anion Gap 5 mmol/L (5-15) Blood Urea Nitrogen 16 mg/dL (7-18) Creatinine 0.7 MG/DL (0.55-1.30) Estimat Glomerular Filtration Rate mL/min (>60) Glucose Level 124 MG/DL (74-106) H Calcium Level 9.0 MG/DL (8.5-10.1) Magnesium Level 2.0 MG/DL (1.8-2.4) Total Bilirubin 0.2 MG/DL (0.2-1.0) Aspartate Amino Transf (AST/SGOT) 34 U/L (15-37) Alanine Aminotransferase (ALT/SGPT) 26 U/L (12-78) Alkaline Phosphatase 65 U/L (46-116) Total Protein 8.1 G/DL (6.4-8.2) Albumin 3.2 G/DL (3.4-5.0) L Globulin 4.9 g/dL Albumin/Globulin Ratio 0.7 (1.0-2.7) Damon Bernard MD Mar 13, 2018 14:55
[2018-03-13 16:00] VITALS: BP 146/85
--- NOTE | 2018-03-13 20:30 | Consultation ---
DATE OF CONSULTATION: 03/13/2018 CARDIOLOGY CONSULTATION CONSULTING PHYSICIAN: Damon Swartz M.D. REFERRING PHYSICIAN: Bri Carranza M.D. REASON FOR CONSULTATION: Cardiac arrhythmia, tachycardia, nonsustained ventricular tachycardia. HISTORY OF PRESENT ILLNESS: The patient is a 72-year-old former smoker lady with history of COPD, on home oxygen, who was brought to the emergency room for increasing shortness of breath and wheezing. Her echocardiogram showed ejection fraction of 65%. EKG, the patient has frequent PACs and PVCs, and on telemetry had runs of nonsustained ventricular tachycardia. Cardiac electrophysiology consultation was requested for further evaluation and management. REVIEW OF SYSTEMS: Negative other than what was mentioned in the history of present illness. PAST MEDICAL HISTORY: 1. Hypertension. 2. COPD. FAMILY HISTORY: Noncontributory. ALLERGIES: She is allergic to codeine, penicillin, and sulfa. SOCIAL HISTORY: She is a detention resident and former tobacco user. PHYSICAL EXAMINATION: VITAL SIGNS: Blood pressure of 115/69, pulse is 100, respirations 20, and temperature 98.6. HEAD AND NECK: Shows no JVD. LUNGS: Coarse rhonchi. CARDIOVASCULAR: Irregular S1 and S2 and tachycardic. ABDOMEN: Soft. EXTREMITIES: pitting edema. LABORATORY AND DIAGNOSTIC STUDIES: White count of 5, hemoglobin 10.2, hematocrit 32.5, and platelet count is 217,000. Sodium is 144, potassium 3.9, BUN of 6, creatinine 0.9, glucose of 124. Blood gas showed pCO2 of 86, pO2 of 102, bicarbonate of 45, pH of 7.336. ASSESSMENT AND PLAN: 1. Cardiac arrhythmias with nonsustained ventricular tachycardia. Echocardiogram showed normal left ventricular systolic function. We will keep the potassium around 4. The patient's magnesium is therapeutic at 2. Her first troponin was negative. We will completely rule out [place] protocol. In the meantime, we will avoid beta-blockers for severe COPD. I will change her amlodipine to Cardizem to suppress her cardiac arrhythmia. 2. Hypertension. Discontinue amlodipine. Start the patient on Cardizem that would suppress her arrhythmia. When it becomes more stable, she would benefit from nuclear stress test to rule out underlying ischemia causing the patient's ventricular tachycardia. 3. Severe COPD, on antibiotic per and nebulizers. Thank you very much for allowing me to participate in the care of this patient. Please do not hesitate to contact me for any questions regarding my evaluation. Damon Swartz M.D. DR: KIEL JOB#: [id number] CC:
--- NOTE | 2018-03-13 20:41 | Pulmonology Progress Note ---
Assessment/Plan Assessment/Plan COPD on home O2 with ACUTE exacerbation Chronic hypercapnic and hypoxemic respiratory failure Protein calorie malnutrition [facility] resident Former smoker HTN PLAN: steroid taper to q 12 continue for 3 days Abx nebs and MDI Monitor for signs of a respiratory infection BiPAP 12/5 qHS and PRN, needs to continue nocturnal NIPPV @ facility--encourage RUL mass on CT will need out pt PET no PAH on echo Monitor volumes tobacco cessation FC, continue to discuss GOC dc planning Subjective ROS Limited/Unobtainable: No Constitutional: Reports: no symptoms Respiratory: Reports: dry cough, shortness of breath Cardiovascular: Reports: no symptoms Gastrointestinal/Abdominal: Reports: no symptoms Allergies: Coded Allergies: CODEINE (Verified Allergy, Unknown, 03/09/18) PENICILLINS (Verified Allergy, Unknown, 03/09/18) SULFA (SULFONAMIDE ANTIBIOTICS) (Verified Allergy, Unknown, 03/09/18) Subjective no events no cp nv not getting oob still not using bipap at night no fever noted tolerating po feeling better Objective Last 24 Hour Vital Signs Date Time Temp Pulse Resp B/P (MAP) Pulse Ox O2 Delivery O2 Flow Rate FiO2 03/13/18 19:34 105 20 100 Nasal Cannula 2.0 28 03/13/18 19:34 105 20 100 Nasal Cannula 2.0 28 03/13/18 19:22 99 20 99 Nasal Cannula 2.0 28 03/13/18 19:17 99 20 99 Nasal Cannula 2.0 28 03/13/18 19:17 Nasal Cannula 2.0 28 03/13/18 19:16 99 Nasal Cannula 2.0 28 03/13/18 16:00 112 03/13/18 16:00 96.7 100 20 146/85 (105) 93 03/13/18 14:45 101 20 100 Nasal Cannula 2.0 28 03/13/18 14:36 102 20 98 Nasal Cannula 2.0 28 03/13/18 12:00 123 03/13/18 12:00 98.6 95 20 115/69 (84) 99 03/13/18 10:44 99 20 99 Nasal Cannula 2.0 28 03/13/18 10:38 100 20 96 Nasal Cannula 2.0 28 03/13/18 09:27 100 20 100 Nasal Cannula 2.0 28 03/13/18 09:22 97 20 99 Nasal Cannula 2.0 28 03/13/18 09:00 Nasal Cannula 2.0 03/13/18 08:30 97 127/71 03/13/18 08:00 98.9 97 16 127/71 (89) 100 03/13/18 08:00 105 03/13/18 07:08 98 Nasal Cannula 2.0 28 03/13/18 07:08 Nasal Cannula 2.0 28 03/13/18 06:55 89 20 100 Nasal Cannula 2.0 28 03/13/18 06:46 95 22 99 Nasal Cannula 2.0 28 03/13/18 04:00 88 03/13/18 03:34 84 23 99 Bi-pap 28 03/13/18 03:24 83 25 96 Facial 28 03/13/18 03:24 83 25 96 Bi-pap 28 03/13/18 01:07 83 24 98 Facial 28 03/13/18 00:00 98.3 98 18 122/73 (89) 100 03/13/18 00:00 83 03/12/18 23:50 99 18 100 Bi-pap 28 03/12/18 23:03 88 18 97 Bi-pap 28 03/12/18 23:01 88 21 97 Facial 28 03/12/18 21:00 Nasal Cannula 2.0 Intake and Output 03/12/18 03/13/18 19:00 07:00 Intake Total 700 ml Balance 700 ml Intake Oral 700 ml # Voids 5 5 General Appearance: WD/WN HEENT: atraumatic, anicteric Respiratory/Chest: normal breath sounds Cardiovascular: normal rate, regular rhythm Abdomen: soft, non tender, no organomegaly Neurologic/Psychiatric: alert, oriented x 3 Lymphatic: no neck adenopathy Musculoskeletal: no effusion Laboratory Tests 03/13/18 06:05: Sodium Level 144, Potassium Level 3.9, Chloride Level 101, Carbon Dioxide Level 38H, Anion Gap 5, Blood Urea Nitrogen 16, Creatinine 0.7, Estimat Glomerular Filtration Rate , Glucose Level 124H, Calcium Level 9.0, Magnesium Level 2.0, Total Bilirubin 0.2, Aspartate Amino Transf (AST/SGOT) 34, Alanine Aminotransferase (ALT/SGPT) 26, Alkaline Phosphatase 65, Total Protein 8.1, Albumin 3.2L, Globulin 4.9, Albumin/Globulin Ratio 0.7L Current Medications Medications (Trade) Dose Ordered Sig/Leila Route PRN Reason Start Time Stop Time Status Last Admin Dose Admin Acetaminophen (Tylenol) 325 mg Q4HR PRN ORAL Mild Pain (Pain Scale 1-3) 03/10/18 05:15 04/09/18 05:14 03/10/18 12:24 Albuterol/ Ipratropium (Albuterol/ Ipratropium) 3 ml Q4HRT HHN 03/10/18 07:00 03/15/18 06:59 03/13/18 19:15 Ascorbic Acid (Vitamin C) 500 mg DAILY ORAL 03/10/18 09:00 04/09/18 08:59 03/13/18 08:29 Aspirin (ASA) 81 mg DAILY ORAL 03/10/18 09:00 04/09/18 08:59 03/13/18 08:29 Azithromycin (Zithromax) 250 mg DAILY ORAL 03/11/18 09:00 03/18/18 08:59 03/13/18 08:29 Budesonide (Pulmicort) 0.25 mg BID INH 03/10/18 09:00 04/09/18 08:59 03/13/18 19:22 Clonidine HCl (Catapres TTS-1) 1 patch ONCE A WEEK TDERMAL 03/10/18 09:00 04/09/18 08:59 03/10/18 10:05 Dextrose (Dextrose 50%) 25 ml Q30M PRN IV Hypoglycemia 03/10/18 06:30 04/09/18 06:29 Dextrose (Dextrose 50%) 50 ml Q30M PRN IV Hypoglycemia 03/10/18 06:30 04/09/18 06:29 Diltiazem HCl (Cardizem) 60 mg EVERY 8 HOURS ORAL 03/13/18 22:00 04/12/18 21:59 Diphenhydramine HCl (Benadryl) 25 mg Q6H PRN ORAL Itching 03/13/18 17:44 04/12/18 17:43 Docusate Sodium (Colace) 100 mg TWICE A DAY ORAL 03/10/18 09:00 04/09/18 08:59 03/13/18 17:10 Enoxaparin Sodium (Lovenox) 40 mg DAILY SUBQ 03/10/18 09:00 04/09/18 08:59 03/13/18 08:36 Folic Acid (Folate) 1 mg DAILY ORAL 03/10/18 09:00 04/09/18 08:59 03/13/18 08:29 Gabapentin (Neurontin) 300 mg THREE TIMES A DAY ORAL 03/10/18 09:00 04/09/18 08:59 03/13/18 17:10 Insulin Aspart (NovoLOG) BEFORE MEALS AND HS SUBQ 03/10/18 06:30 04/09/18 06:29 03/13/18 16:12 Insulin Aspart (NovoLOG) 1 units BEFORE MEALS SUBQ 03/10/18 06:30 04/09/18 06:29 03/13/18 16:10 Lorazepam (Ativan) 1 mg Q6H PRN ORAL For Anxiety 03/10/18 10:53 03/17/18 10:52 03/13/18 00:06 Magnesium Hydroxide (Mom) 30 ml DAILY PRN ORAL Constipation 03/10/18 05:15 04/09/18 05:14 Methylprednisolone Sodium Succinate (Solu-MEDROL) 40 mg EVERY 12 HOURS IVP 03/13/18 09:00 04/09/18 08:59 03/13/18 08:30 Olanzapine (ZyPREXA) 5 mg BEDTIME ORAL 03/10/18 21:00 04/09/18 20:59 03/12/18 21:20 Pantoprazole (Protonix) 40 mg DAILY ORAL 03/10/18 09:00 04/09/18 08:59 03/13/18 08:28 Tiotropium [place] (Spiriva Inhaler) 1 puff DAILY INH 03/11/18 09:00 04/10/18 08:59 03/13/18 09:17 Radha Madsen DO Mar 13, 2018 20:41
[2018-03-13 20:47] VITALS: BP 124/76
[2018-03-13] MEDS: dilTIAZem HCl 60mg tab ORAL SCH (22:51)
[2018-03-14] VITALS (8 sets, daily range): BP systolic 119–134; BP diastolic 60–80
[2018-03-14] MEDS: Albuterol/Ipratropium 3ml neb HHN SCH ×6 (02:56→23:44)
[2018-03-14] MEDS: dilTIAZem HCl 60mg tab ORAL SCH ×3 (06:18→21:42)
[2018-03-14] MEDS: NovoLOG Insulin Flexpen SUBQ SCH ×7 (06:52→21:41)
--- NOTE | 2018-03-14 08:19 | Pulmonology Progress Note ---
Assessment/Plan Assessment/Plan COPD on home O2 with ACUTE exacerbation Chronic hypercapnic and hypoxemic respiratory failure Protein calorie malnutrition [facility] resident Former smoker HTN PLAN: no change is steroids today labs adn cxr ordered for [place] Abx nebs and MDI Monitor for signs of a respiratory infection BiPAP 12/5 qHS and PRN, needs to continue nocturnal NIPPV @ facility--encourage RUL mass on CT will need out pt PET no PAH on echo Monitor volumes tobacco cessation FC, continue to discuss GOC dc planning Subjective Constitutional: Reports: no symptoms Respiratory: Reports: dry cough, shortness of breath, wheezing Allergies: Coded Allergies: CODEINE (Verified Allergy, Unknown, 03/09/18) PENICILLINS (Verified Allergy, Unknown, 03/09/18) SULFA (SULFONAMIDE ANTIBIOTICS) (Verified Allergy, Unknown, 03/09/18) Subjective noted iwth wheezing this am getting nebs no events no cp nv not getting oob used bipap at night no fever noted tolerating po feeling better Objective Last 24 Hour Vital Signs Date Time Temp Pulse Resp B/P (MAP) Pulse Ox O2 Delivery O2 Flow Rate FiO2 03/14/18 07:54 98.1 90 18 134/72 (92) 99 03/14/18 06:18 89 03/14/18 05:43 97.3 89 19 130/80 (97) 98 03/14/18 05:42 81 03/14/18 05:41 81 03/14/18 05:39 97.3 89 19 130/80 (97) 99 03/14/18 04:00 97.3 89 19 130/80 (97) 98 03/14/18 03:16 80 18 100 Nasal Cannula 2.0 28 03/14/18 02:58 90 20 99 Nasal Cannula 28 03/14/18 00:41 97 03/14/18 00:39 96.6 97 20 131/74 (93) 92 03/13/18 23:56 76 20 96 03/13/18 22:51 97 03/13/18 22:38 95 18 100 Bi-pap 28 03/13/18 22:29 95 20 99 Bi-pap 28 03/13/18 22:27 95 20 99 Facial 28 03/13/18 22:09 Nasal Cannula 3.0 03/13/18 20:48 121 03/13/18 20:47 98.1 105 20 124/76 (92) 98 03/13/18 19:34 105 20 100 Nasal Cannula 2.0 28 03/13/18 19:34 105 20 100 Nasal Cannula 2.0 28 03/13/18 19:22 99 20 99 Nasal Cannula 2.0 28 03/13/18 19:17 99 20 99 Nasal Cannula 2.0 28 03/13/18 19:17 Nasal Cannula 2.0 28 03/13/18 19:16 99 Nasal Cannula 2.0 28 03/13/18 16:00 112 03/13/18 16:00 96.7 100 20 146/85 (105) 93 03/13/18 14:45 101 20 100 Nasal Cannula 2.0 28 03/13/18 14:36 102 20 98 Nasal Cannula 2.0 28 03/13/18 12:00 123 03/13/18 12:00 98.6 95 20 115/69 (84) 99 03/13/18 10:44 99 20 99 Nasal Cannula 2.0 28 03/13/18 10:38 100 20 96 Nasal Cannula 2.0 28 03/13/18 09:27 100 20 100 Nasal Cannula 2.0 28 03/13/18 09:22 97 20 99 Nasal Cannula 2.0 28 03/13/18 09:00 Nasal Cannula 2.0 03/13/18 08:30 97 127/71 Intake and Output 03/13/18 03/14/18 19:00 07:00 Intake Total 476 ml Balance 476 ml Intake Oral 476 ml # Voids 3 1 General Appearance: WD/WN HEENT: normocephalic, anicteric Respiratory/Chest: expiratory wheezing Cardiovascular: normal rate, regular rhythm Abdomen: soft, non tender, no organomegaly Extremities: no cyanosis Neurologic/Psychiatric: electrical high tension tester II-XII grossly normal, alert, oriented x 3, responsive Laboratory Tests 03/14/18 05:35: Troponin I 0.020, Pro-B-Type Natriuretic Peptide 686H, Thyroid Stimulating Hormone (TSH) 0.051L Current Medications Medications (Trade) Dose Ordered Sig/Leila Route PRN Reason Start Time Stop Time Status Last Admin Dose Admin Acetaminophen (Tylenol) 325 mg Q4HR PRN ORAL Mild Pain (Pain Scale 1-3) 03/10/18 05:15 04/09/18 05:14 03/10/18 12:24 Albuterol/ Ipratropium (Albuterol/ Ipratropium) 3 ml Q4HRT HHN 03/10/18 07:00 03/15/18 06:59 03/14/18 02:56 Ascorbic Acid (Vitamin C) 500 mg DAILY ORAL 03/10/18 09:00 04/09/18 08:59 03/13/18 08:29 Aspirin (ASA) 81 mg DAILY ORAL 03/10/18 09:00 04/09/18 08:59 03/13/18 08:29 Azithromycin (Zithromax) 250 mg DAILY ORAL 03/11/18 09:00 03/18/18 08:59 03/13/18 08:29 Budesonide (Pulmicort) 0.25 mg BID INH 03/10/18 09:00 04/09/18 08:59 03/13/18 19:22 Clonidine HCl (Catapres TTS-1) 1 patch ONCE A WEEK TDERMAL 03/10/18 09:00 04/09/18 08:59 03/10/18 10:05 Dextrose (Dextrose 50%) 25 ml Q30M PRN IV Hypoglycemia 03/10/18 06:30 04/09/18 06:29 Dextrose (Dextrose 50%) 50 ml Q30M PRN IV Hypoglycemia 03/10/18 06:30 04/09/18 06:29 Diltiazem HCl (Cardizem) 60 mg EVERY 8 HOURS ORAL 03/13/18 22:00 04/12/18 21:59 03/14/18 06:18 Diphenhydramine HCl (Benadryl) 25 mg Q6H PRN ORAL Itching 03/13/18 17:44 04/12/18 17:43 03/13/18 20:37 Docusate Sodium (Colace) 100 mg TWICE A DAY ORAL 03/10/18 09:00 04/09/18 08:59 03/13/18 17:10 Enoxaparin Sodium (Lovenox) 40 mg DAILY SUBQ 03/10/18 09:00 04/09/18 08:59 03/13/18 08:36 Folic Acid (Folate) 1 mg DAILY ORAL 03/10/18 09:00 04/09/18 08:59 03/13/18 08:29 Gabapentin (Neurontin) 300 mg THREE TIMES A DAY ORAL 03/10/18 09:00 04/09/18 08:59 03/13/18 17:10 Insulin Aspart (NovoLOG) BEFORE MEALS AND HS SUBQ 03/10/18 06:30 04/09/18 06:29 03/14/18 06:52 Insulin Aspart (NovoLOG) 1 units BEFORE MEALS SUBQ 03/10/18 06:30 04/09/18 06:29 03/14/18 06:52 Lorazepam (Ativan) 1 mg Q6H PRN ORAL For Anxiety 03/10/18 10:53 03/17/18 10:52 03/13/18 20:38 Magnesium Hydroxide (Mom) 30 ml DAILY PRN ORAL Constipation 03/10/18 05:15 04/09/18 05:14 Methylprednisolone Sodium Succinate (Solu-MEDROL) 40 mg EVERY 12 HOURS IVP 03/13/18 09:00 04/09/18 08:59 03/13/18 20:38 Olanzapine (ZyPREXA) 5 mg BEDTIME ORAL 03/10/18 21:00 04/09/18 20:59 03/13/18 20:38 Pantoprazole (Protonix) 40 mg DAILY ORAL 03/10/18 09:00 04/09/18 08:59 03/13/18 08:28 Tiotropium [place] (Spiriva Inhaler) 1 puff DAILY INH 03/11/18 09:00 04/10/18 08:59 03/13/18 09:17 Radha Madsen DO Mar 14, 2018 08:19
[2018-03-14] MEDS: Budesonide HHN 0.25mg/2ml ud INH SCH ×2 (08:43→20:55)
[2018-03-14] MEDS: Solu-MEDROL 40mg Inj IVP SCH ×2 (09:20→21:42)
[2018-03-14] MEDS: Ascorbic Acid 500mg tab ORAL SCH (09:21)
[2018-03-14] MEDS: Docusate 100mg cap ORAL SCH ×2 (09:21→17:10)
[2018-03-14] MEDS: Aspirin Baby 81mg ORAL SCH (09:21)
[2018-03-14] MEDS: Azithromycin 250mg tab ORAL SCH (09:21)
[2018-03-14] MEDS: Enoxaparin 40mg Inj SUBQ SCH (09:28)
--- NOTE | 2018-03-14 11:52 | Cardiology Report ---
APPROVED REPORT EKG Measurement Heart [id number] [id number] Sinus rhythm with premature supraventricular complexes and with occasional premature ventricular complexes Otherwise normal ECG
--- NOTE | 2018-03-14 14:01 | Cardiac Electrophysiology PN ---
Assessment/Plan Assessment/Plan 1. Nonsustained ventricular tachycardia. Echocardiogram showed normal left ventricular systolic function. We will keep the potassium around 4. The patient's magnesium is therapeutic at 2. Ruled out [place] and avoid beta-blockers for severe COPD. On Cardizem 2. Hypertension. On Cardizem 60 q 8 hr. Nuclear stress test to rule out underlying ischemia causing the patient's ventricular tachycardia. 3. Severe COPD, on antibiotic 4. RUL mass on CT will need out pt PET Subjective Subjective Feeling better. SOB is better, In SR Objective Last 24 Hour Vital Signs Date Time Temp Pulse Resp B/P (MAP) Pulse Ox O2 Delivery O2 Flow Rate FiO2 03/14/18 13:20 94 120/73 03/14/18 12:55 94 18 99 Nasal Cannula 2.0 28 03/14/18 12:45 90 18 95 Nasal Cannula 2.0 28 03/14/18 12:00 97.7 80 18 120/73 (89) 97 03/14/18 09:00 Nasal Cannula 3.0 03/14/18 08:43 101 20 99 Nasal Cannula 2.0 28 03/14/18 08:35 101 18 100 Nasal Cannula 2.0 28 03/14/18 08:25 94 18 96 Nasal Cannula 2.0 28 03/14/18 08:24 Nasal Cannula 2.0 28 03/14/18 08:24 96 Nasal Cannula 2.0 28 03/14/18 08:21 94 18 96 Nasal Cannula 2.0 28 03/14/18 08:00 83 03/14/18 07:54 98.1 90 18 134/72 (92) 99 03/14/18 06:18 89 03/14/18 05:43 97.3 89 19 130/80 (97) 98 03/14/18 05:42 81 03/14/18 05:41 81 03/14/18 05:39 97.3 89 19 130/80 (97) 99 03/14/18 04:00 97.3 89 19 130/80 (97) 98 03/14/18 03:16 80 18 100 Nasal Cannula 2.0 28 03/14/18 02:58 90 20 99 Nasal Cannula 28 03/14/18 00:41 97 03/14/18 00:39 96.6 97 20 131/74 (93) 92 03/13/18 23:56 76 20 96 03/13/18 22:51 97 03/13/18 22:38 95 18 100 Bi-pap 28 03/13/18 22:29 95 20 99 Bi-pap 28 03/13/18 22:27 95 20 99 Facial 28 03/13/18 22:09 Nasal Cannula 3.0 03/13/18 20:48 121 03/13/18 20:47 98.1 105 20 124/76 (92) 98 03/13/18 19:34 105 20 100 Nasal Cannula 2.0 28 03/13/18 19:34 105 20 100 Nasal Cannula 2.0 28 03/13/18 19:22 99 20 99 Nasal Cannula 2.0 28 03/13/18 19:17 99 20 99 Nasal Cannula 2.0 28 03/13/18 19:17 Nasal Cannula 2.0 28 03/13/18 19:16 99 Nasal Cannula 2.0 28 03/13/18 16:00 112 03/13/18 16:00 96.7 100 20 146/85 (105) 93 03/13/18 14:45 101 20 100 Nasal Cannula 2.0 28 03/13/18 14:36 102 20 98 Nasal Cannula 2.0 28 Intake and Output 03/13/18 03/14/18 19:00 07:00 Intake Total 476 ml Balance 476 ml Intake Oral 476 ml # Voids 3 1 Laboratory Tests Test 03/14/18 05:35 Troponin I 0.020 ng/mL (0.000-0.056) Pro-B-Type Natriuretic Peptide 686 pg/mL (0-125) H Thyroid Stimulating Hormone (TSH) 0.051 uiU/mL (0.358-3.740) Objective HEAD AND NECK: Shows no JVD. LUNGS: Coarse rhonchi. CARDIOVASCULAR: Irregular S1 and S2 and tachycardic. ABDOMEN: Soft. EXTREMITIES: No pitting edema. Damon Swartz MD Mar 14, 2018 14:01
--- NOTE | 2018-03-14 14:13 | Infectious Diseases Prog Note ---
Assessment/Plan Problems: (1) COPD exacerbation Assessment & Plan: continue zithromax and taper steroids , continue inhalers as needed (2) End stage COPD Assessment & Plan: on BIPAP prn and nebulizer , was on hospice care before (3) Acute respiratory failure Assessment & Plan: due to the above , continue antibiotics and taper steroids. (4) Right upper lobe pulmonary nodule Assessment & Plan: repeat CT chest in three months Subjective Constitutional: Reports: no symptoms HEENT: Reports: no symptoms Respiratory: Reports: dry cough Breasts: Reports: no symptoms Cardiovascular: Reports: no symptoms Gastrointestinal/Abdominal: Reports: no symptoms Genitourinary: Reports: no symptoms Neurologic: Reports: no symptoms Psychiatric: Reports: no symptoms Skin: Reports: no symptoms Endocrine: Reports: no symptoms Hematologic: Reports: no symptoms Musculoskeletal: Reports: no symptoms Allergies: Coded Allergies: CODEINE (Verified Allergy, Unknown, 03/09/18) PENICILLINS (Verified Allergy, Unknown, 03/09/18) SULFA (SULFONAMIDE ANTIBIOTICS) (Verified Allergy, Unknown, 03/09/18) Objective Vital Signs Last 24 Hour Vital Signs Date Time Temp Pulse Resp B/P (MAP) Pulse Ox O2 Delivery O2 Flow Rate FiO2 03/14/18 13:20 94 120/73 03/14/18 12:55 94 18 99 Nasal Cannula 2.0 28 03/14/18 12:45 90 18 95 Nasal Cannula 2.0 28 03/14/18 12:00 97.7 80 18 120/73 (89) 97 03/14/18 09:00 Nasal Cannula 3.0 03/14/18 08:43 101 20 99 Nasal Cannula 2.0 28 03/14/18 08:35 101 18 100 Nasal Cannula 2.0 28 03/14/18 08:25 94 18 96 Nasal Cannula 2.0 28 03/14/18 08:24 Nasal Cannula 2.0 28 03/14/18 08:24 96 Nasal Cannula 2.0 28 03/14/18 08:21 94 18 96 Nasal Cannula 2.0 28 03/14/18 08:00 83 03/14/18 07:54 98.1 90 18 134/72 (92) 99 03/14/18 06:18 89 03/14/18 05:43 97.3 89 19 130/80 (97) 98 03/14/18 05:42 81 03/14/18 05:41 81 03/14/18 05:39 97.3 89 19 130/80 (97) 99 03/14/18 04:00 97.3 89 19 130/80 (97) 98 03/14/18 03:16 80 18 100 Nasal Cannula 2.0 28 03/14/18 02:58 90 20 99 Nasal Cannula 28 03/14/18 00:41 97 03/14/18 00:39 96.6 97 20 131/74 (93) 92 03/13/18 23:56 76 20 96 03/13/18 22:51 97 03/13/18 22:38 95 18 100 Bi-pap 28 03/13/18 22:29 95 20 99 Bi-pap 28 03/13/18 22:27 95 20 99 Facial 28 03/13/18 22:09 Nasal Cannula 3.0 03/13/18 20:48 121 03/13/18 20:47 98.1 105 20 124/76 (92) 98 03/13/18 19:34 105 20 100 Nasal Cannula 2.0 28 03/13/18 19:34 105 20 100 Nasal Cannula 2.0 28 03/13/18 19:22 99 20 99 Nasal Cannula 2.0 28 03/13/18 19:17 99 20 99 Nasal Cannula 2.0 28 03/13/18 19:17 Nasal Cannula 2.0 28 03/13/18 19:16 99 Nasal Cannula 2.0 28 03/13/18 16:00 112 03/13/18 16:00 96.7 100 20 146/85 (105) 93 03/13/18 14:45 101 20 100 Nasal Cannula 2.0 28 03/13/18 14:36 102 20 98 Nasal Cannula 2.0 28 Height (Feet): 5 Height (Inches): 5.00 Weight (Pounds): 118 General Appearance: WD/WN, no acute distress HEENT: normocephalic, atraumatic, anicteric, mucous membranes moist, PERRL Respiratory/Chest: chest wall non-tender, normal breath sounds, no respiratory distress, no accessory muscle use, decreased breath sounds Cardiovascular: normal peripheral pulses, normal rate, regular rhythm, no gallop/murmur, no JVD Abdomen: normal bowel sounds, soft, non tender, no organomegaly, non distended , no mass, no scars Extremities: no cyanosis, no clubbing Skin: no rash, no lesions, no ulcers Neurologic/Psychiatric: alert, oriented x 3, responsive Lymphatic: no neck adenopathy, no groin adenopathy Musculoskeletal: normal muscle bulk, no effusion Laboratory Tests Test 03/14/18 05:35 Troponin I 0.020 ng/mL (0.000-0.056) Pro-B-Type Natriuretic Peptide 686 pg/mL (0-125) H Thyroid Stimulating Hormone (TSH) 0.051 uiU/mL (0.358-3.740) Current Medications Medications (Trade) Dose Ordered Sig/Leila Route PRN Reason Start Time Stop Time Status Last Admin Dose Admin Acetaminophen (Tylenol) 325 mg Q4HR PRN ORAL Mild Pain (Pain Scale 1-3) 03/10/18 05:15 04/09/18 05:14 03/10/18 12:24 Albuterol/ Ipratropium (Albuterol/ Ipratropium) 3 ml Q4HRT HHN 03/10/18 07:00 03/15/18 06:59 03/14/18 12:45 Ascorbic Acid (Vitamin C) 500 mg DAILY ORAL 03/10/18 09:00 04/09/18 08:59 03/14/18 09:21 Aspirin (ASA) 81 mg DAILY ORAL 03/10/18 09:00 04/09/18 08:59 03/14/18 09:21 Azithromycin (Zithromax) 250 mg DAILY ORAL 03/11/18 09:00 03/18/18 08:59 03/14/18 09:21 Budesonide (Pulmicort) 0.25 mg BID INH 03/10/18 09:00 04/09/18 08:59 03/14/18 08:43 Clonidine HCl (Catapres TTS-1) 1 patch ONCE A WEEK TDERMAL 03/10/18 09:00 04/09/18 08:59 03/10/18 10:05 Dextrose (Dextrose 50%) 25 ml Q30M PRN IV Hypoglycemia 03/10/18 06:30 04/09/18 06:29 Dextrose (Dextrose 50%) 50 ml Q30M PRN IV Hypoglycemia 03/10/18 06:30 04/09/18 06:29 Diltiazem HCl (Cardizem) 60 mg EVERY 8 HOURS ORAL 03/13/18 22:00 04/12/18 21:59 03/14/18 13:20 Diphenhydramine HCl (Benadryl) 25 mg Q6H PRN ORAL Itching 03/13/18 17:44 04/12/18 17:43 03/14/18 09:21 Docusate Sodium (Colace) 100 mg TWICE A DAY ORAL 03/10/18 09:00 04/09/18 08:59 03/14/18 09:21 Enoxaparin Sodium (Lovenox) 40 mg DAILY SUBQ 03/10/18 09:00 04/09/18 08:59 03/14/18 09:28 Folic Acid (Folate) 1 mg DAILY ORAL 03/10/18 09:00 04/09/18 08:59 03/14/18 09:21 Gabapentin (Neurontin) 300 mg THREE TIMES A DAY ORAL 03/10/18 09:00 04/09/18 08:59 03/14/18 13:20 Insulin Aspart (NovoLOG) BEFORE MEALS AND HS SUBQ 03/10/18 06:30 04/09/18 06:29 03/14/18 11:41 Insulin Aspart (NovoLOG) 1 units BEFORE MEALS SUBQ 03/10/18 06:30 04/09/18 06:29 03/14/18 11:41 Lorazepam (Ativan) 1 mg Q6H PRN ORAL For Anxiety 03/10/18 10:53 03/17/18 10:52 03/13/18 20:38 Magnesium Hydroxide (Mom) 30 ml DAILY PRN ORAL Constipation 03/10/18 05:15 04/09/18 05:14 Methylprednisolone Sodium Succinate (Solu-MEDROL) 40 mg EVERY 12 HOURS IVP 03/13/18 09:00 04/09/18 08:59 03/14/18 09:20 Olanzapine (ZyPREXA) 5 mg BEDTIME ORAL 03/10/18 21:00 04/09/18 20:59 03/13/18 20:38 Pantoprazole (Protonix) 40 mg DAILY ORAL 03/10/18 09:00 04/09/18 08:59 03/14/18 09:21 Regadenoson (Lexiscan) 0.4 mg ONCE PRN IV stress test 03/14/18 14:15 03/16/18 14:14 Tiotropium [place] (Spiriva Inhaler) 1 puff DAILY INH 03/11/18 09:00 04/10/18 08:59 03/14/18 08:42 Ramírez Barry M.D. Mar 14, 2018 14:13
[2018-03-14] MEDS ORDERED: Lexiscan 0.4mg/5ml syringe IV PRN (14:15)
--- NOTE | 2018-03-14 14:15 | General Progress Note ---
Progress Note Progress Note covering for Dr Carranza SUBJECTIVE: I am OK OBJECTIVE: she was lying in bed, awake and alert, had SOB earlier , no chest pain or palpitation PHYSICAL EXAMINATION: VITAL SIGNS: reviewed and stable HEAD AND NECK: Atraumatic and normocephalic. CHEST: Diffuse bronchial breathing sounds. Negative for crackles. HEART: S1, S2. Regular rate and rhythm. Negative for S3. Negative for S4. ABDOMEN: Soft. No organomegaly. MUSCULOSKELETAL: Atrophied musculature. No gross lateralized motor deficits. NEUROLOGIC: Awake, alert, and oriented x3. LABORATORY DATA: reviewed ASSESSMENT: 1. Acute on chronic COPD exacerbation. 2. End-stage COPD - the patient was on hospice care and currently Full Code. 3. Hypertension. 4. Diabetes type 2. 5. Anemia. 6. Malnourishment, mild. 7. RUL 12 MM LUNG MASS 8. GI and DVT prophylaxis. 9. recurrent PVC PLAN: continue empiric antibiotic regimen for bronchitis. taper steroids . follow up CT scan in 3 months follow Pulmonary recommendations follow cardiology recommendations for recurrent PVC, check electrolytes Ramírez Barry M.D. Mar 14, 2018 14:15
[2018-03-15] VITALS (7 sets, daily range): BP systolic 119–159; BP diastolic 69–85
[2018-03-15] MEDS: LORazepam 1mg tab ORAL PRN ×2 (01:56→23:50)
[2018-03-15] MEDS: Albuterol/Ipratropium 3ml neb HHN SCH ×3 (02:05→23:24)
[2018-03-15] MEDS: dilTIAZem HCl 60mg tab ORAL SCH ×3 (05:58→21:21)
[2018-03-15] MEDS: NovoLOG Insulin Flexpen SUBQ SCH ×7 (06:00→20:09)
[2018-03-15 07:07] LABS: BASOPHILS % (AUTO) 0.6 % (0.0-2.0); EOSINOPHILS % (AUTO) 0.1 % (0.0-3.0); HEMATOCRIT 36.4 % (37.0-47.0); LYMPHOCYTES % (AUTO) 12.6 % (20.0-45.0); MEAN CORPUSCULAR VOLUME 90 FL (80-99); MONOCYTES % (AUTO) 4.7 % (1.0-10.0); PLATELET COUNT 203 K/UL (150-450); RED BLOOD COUNT 4.04 M/UL (4.20-5.40); RED CELL DISTRIBUTION WIDTH 13.4 % (11.6-14.8); WHITE BLOOD COUNT 6.1 K/UL (4.8-10.8)
[2018-03-15 07:39] LABS: CARBON DIOXIDE 40 MMOL/L (21-32)
[2018-03-15 07:44] LABS: BLOOD UREA NITROGEN 15 mg/dL (7-18); CALCIUM 8.8 MG/DL (8.5-10.1); CHLORIDE 101 MMOL/L (98-107); CREATININE 0.6 MG/DL (0.55-1.30); POTASSIUM 4.4 MMOL/L (3.5-5.1); SODIUM 143 MMOL/L (136-145)
[2018-03-15] MEDS: Budesonide HHN 0.25mg/2ml ud INH SCH ×2 (09:05→19:25)
[2018-03-15] MEDS: Solu-MEDROL 40mg Inj IVP SCH (10:01)
[2018-03-15] MEDS: Azithromycin 250mg tab ORAL SCH (10:01)
[2018-03-15] MEDS: Aspirin Baby 81mg ORAL SCH (10:01)
[2018-03-15] MEDS: Ascorbic Acid 500mg tab ORAL SCH (10:01)
[2018-03-15] MEDS: Docusate 100mg cap ORAL SCH ×2 (10:02→18:00)
[2018-03-15] MEDS: Enoxaparin 40mg Inj SUBQ SCH (10:08)
--- NOTE | 2018-03-15 10:33 | General Progress Note ---
Assessment/Plan Assessment/Plan S: I am feelilng better O: Appears comfortable, denies chest pain. Has Baseline sob. PHYSICAL EXAMINATION: HEAD AND NECK: Atraumatic and normocephalic. CHEST: Diffuse bronchial breathing sounds. Negative for crackles. HEART: S1, S2. Regular rate and rhythm. Negative for S3. Negative for S4. ABDOMEN: Soft. No organomegaly. MUSCULOSKELETAL: Atrophied musculature. No gross lateralized motor deficits. NEUROLOGIC: Awake, alert, and oriented x3. Medication : Reviewed and reconciled in the chart. ASSESSMENT: 1. Acute on chronic COPD exacerbation 2. End-stage COPD - the patient refused hospice care and currently Full Code. 3. Hypertension. with episodes of SVT 4. Diabetes type 2. 5. Anemia. 6. Malnourishment, mild. 7. GI and DVT prophylaxis. 8. RUL pulmonary nodule Plan: Will discuss the possibility of lung cancer to patient prior obtaining consent for additional diagnosis workup . Patient has end stage COPD, on prior hospice care. Subjective Allergies: Coded Allergies: CODEINE (Verified Allergy, Unknown, 03/09/18) PENICILLINS (Verified Allergy, Unknown, 03/09/18) SULFA (SULFONAMIDE ANTIBIOTICS) (Verified Allergy, Unknown, 03/09/18) Objective Last 24 Hour Vital Signs Date Time Temp Pulse Resp B/P (MAP) Pulse Ox O2 Delivery O2 Flow Rate FiO2 03/15/18 09:15 89 18 99 Nasal Cannula 2.0 28 03/15/18 09:05 89 18 97 Nasal Cannula 2.0 28 03/15/18 08:00 98.0 82 16 149/80 (103) 96 03/15/18 07:08 Nasal Cannula 2.0 28 03/15/18 07:08 Nasal Cannula 03/15/18 07:08 97 Nasal Cannula 2.0 28 03/15/18 07:08 Nasal Cannula 03/15/18 05:58 75 136/78 03/15/18 04:00 75 03/15/18 03:54 97.0 81 20 136/78 (97) 96 03/15/18 02:16 77 20 100 Nasal Cannula 2.0 28 03/15/18 02:05 82 20 98 Nasal Cannula 2.0 28 03/15/18 00:53 78 93 03/15/18 00:00 73 03/15/18 00:00 98.0 73 20 129/72 (91) 100 03/14/18 23:54 98 21 97 Facial 28 03/14/18 23:49 76 18 100 Nasal Cannula 2.0 28 03/14/18 23:41 79 20 99 Nasal Cannula 2.0 28 03/14/18 21:42 89 119/69 03/14/18 21:11 89 18 100 Nasal Cannula 2.0 28 03/14/18 21:11 89 18 100 Nasal Cannula 2.0 28 03/14/18 21:00 Nasal Cannula 3.0 03/14/18 20:55 Nasal Cannula 2.0 28 03/14/18 20:55 99 Nasal Cannula 2.0 28 03/14/18 20:55 88 18 99 Nasal Cannula 2.0 28 03/14/18 20:55 88 18 99 Nasal Cannula 2.0 28 03/14/18 20:00 98.2 90 20 119/69 (86) 94 03/14/18 20:00 89 03/14/18 16:07 89 18 98 Nasal Cannula 2.0 28 03/14/18 16:00 97.9 91 18 124/60 (81) 98 03/14/18 16:00 83 03/14/18 15:57 87 17 96 Nasal Cannula 2.0 28 03/14/18 13:20 94 120/73 03/14/18 12:55 94 18 99 Nasal Cannula 2.0 28 03/14/18 12:45 90 18 95 Nasal Cannula 2.0 28 03/14/18 12:00 93 03/14/18 12:00 97.7 80 18 120/73 (89) 97 Intake and Output 03/14/18 03/15/18 19:00 07:00 Intake Total 660 ml 120 ml Output Total 200 ml Balance 460 ml 120 ml Intake Oral 660 ml 120 ml Output Urine Total 200 ml # Voids 1 Laboratory Tests 03/15/18 05:40: White Blood Count 6.1, Red Blood Count 4.04L, Hemoglobin 11.0L, Hematocrit 36.4L , Mean Corpuscular Volume 90, Mean Corpuscular Hemoglobin 27.3, Mean Corpuscular Hemoglobin Concent 30.2L, Red Cell Distribution Width 13.4, Platelet Count 203, Mean Platelet Volume 9.4, Neutrophils (%) (Auto) 82.0H, Lymphocytes (%) (Auto) 12.6L, Monocytes (%) (Auto) 4.7, Eosinophils (%) (Auto) 0.1, Basophils (%) (Auto) 0.6, Sodium Level 143, Potassium Level 4.4, Chloride Level 101, Carbon Dioxide Level 40H, Blood Urea Nitrogen 15, Creatinine 0.6, Estimat Glomerular Filtration Rate , Glucose Level 197H, Calcium Level 8.8 Height (Feet): 5 Height (Inches): 5.00 Weight (Pounds): 118 Bri Carranza MD Mar 15, 2018 10:33
--- NOTE | 2018-03-15 11:27 | Diagnostic Imaging Report ---
Indication: Cough Technique: One view of the chest Comparison: 03/09/2018 Findings: No acute infiltrates, effusions, or congestion. Tortuous calcified aorta. Normal heart size. Upper mediastinum unremarkable. No definite abnormality seen that would correlate to the irregular opacity seen in the right upper lobe on recent CT scan. Findings are unchanged Impression: No acute process.
--- NOTE | 2018-03-15 13:52 | Cardiac Electrophysiology PN ---
Assessment/Plan Assessment/Plan 1. Nonsustained ventricular tachycardia. Echocardiogram showed normal EF. We will keep the potassium around 4. The patient's magnesium is therapeutic at 2. Ruled out MA and avoid beta-blockers for severe COPD. On Cardizem Nuclear stress test to rule out underlying ischemia causing the patient's ventricular tachycardia pending . 2. Hypertension. On Cardizem 60 q 8 hr. 3. Severe COPD, on antibiotic 4. RUL mass on CT will need out pt PET Subjective Subjective Feeling better. In SR. Stress test pending today Objective Last 24 Hour Vital Signs Date Time Temp Pulse Resp B/P (MAP) Pulse Ox O2 Delivery O2 Flow Rate FiO2 03/15/18 11:01 Nasal Cannula 03/15/18 11:01 Nasal Cannula 03/15/18 09:15 89 18 99 Nasal Cannula 2.0 28 03/15/18 09:05 89 18 97 Nasal Cannula 2.0 28 03/15/18 09:00 Nasal Cannula 3.0 03/15/18 08:00 98.0 82 16 149/80 (103) 96 03/15/18 08:00 74 03/15/18 07:08 Nasal Cannula 2.0 28 03/15/18 07:08 Nasal Cannula 03/15/18 07:08 97 Nasal Cannula 2.0 28 03/15/18 07:08 Nasal Cannula 03/15/18 05:58 75 136/78 03/15/18 04:00 75 03/15/18 03:54 97.0 81 20 136/78 (97) 96 03/15/18 02:16 77 20 100 Nasal Cannula 2.0 28 03/15/18 02:05 82 20 98 Nasal Cannula 2.0 28 03/15/18 00:53 78 93 03/15/18 00:00 73 03/15/18 00:00 98.0 73 20 129/72 (91) 100 03/14/18 23:54 98 21 97 Facial 28 03/14/18 23:49 76 18 100 Nasal Cannula 2.0 28 03/14/18 23:41 79 20 99 Nasal Cannula 2.0 28 03/14/18 21:42 89 119/69 03/14/18 21:11 89 18 100 Nasal Cannula 2.0 28 03/14/18 21:11 89 18 100 Nasal Cannula 2.0 28 03/14/18 21:00 Nasal Cannula 3.0 03/14/18 20:55 Nasal Cannula 2.0 28 03/14/18 20:55 99 Nasal Cannula 2.0 28 03/14/18 20:55 88 18 99 Nasal Cannula 2.0 28 03/14/18 20:55 88 18 99 Nasal Cannula 2.0 28 03/14/18 20:00 98.2 90 20 119/69 (86) 94 03/14/18 20:00 89 03/14/18 16:07 89 18 98 Nasal Cannula 2.0 28 03/14/18 16:00 97.9 91 18 124/60 (81) 98 03/14/18 16:00 83 03/14/18 15:57 87 17 96 Nasal Cannula 2.0 28 Intake and Output 03/14/18 03/15/18 19:00 07:00 Intake Total 660 ml 120 ml Output Total 200 ml Balance 460 ml 120 ml Intake Oral 660 ml 120 ml Output Urine Total 200 ml # Voids 1 Laboratory Tests Test 03/15/18 05:40 White Blood Count 6.1 K/UL (4.8-10.8) Red Blood Count 4.04 M/UL (4.20-5.40) L Hemoglobin 11.0 G/DL (12.0-16.0) L Hematocrit 36.4 % (37.0-47.0) L Mean Corpuscular Volume 90 FL (80-99) Mean Corpuscular Hemoglobin 27.3 PG (27.0-31.0) Mean Corpuscular Hemoglobin Concent 30.2 G/DL (32.0-36.0) L Red Cell Distribution Width 13.4 % (11.6-14.8) Platelet Count 203 K/UL (150-450) Mean Platelet Volume 9.4 FL (6.5-10.1) Neutrophils (%) (Auto) 82.0 % (45.0-75.0) H Lymphocytes (%) (Auto) 12.6 % (20.0-45.0) L Monocytes (%) (Auto) 4.7 % (1.0-10.0) Eosinophils (%) (Auto) 0.1 % (0.0-3.0) Basophils (%) (Auto) 0.6 % (0.0-2.0) Sodium Level 143 MMOL/L (136-145) Potassium Level 4.4 MMOL/L (3.5-5.1) Chloride Level 101 MMOL/L (98-107) Carbon Dioxide Level 40 MMOL/L (21-32) H Blood Urea Nitrogen 15 mg/dL (7-18) Creatinine 0.6 MG/DL (0.55-1.30) Estimat Glomerular Filtration Rate mL/min (>60) Glucose Level 197 MG/DL (74-106) H Calcium Level 8.8 MG/DL (8.5-10.1) Objective HEAD AND NECK: No JVD. LUNGS: Coarse rhonchi. CARDIOVASCULAR: Irregular S1 and S2 and tachycardic. ABDOMEN: Soft. EXTREMITIES: No pitting edema. Damon Swartz MD Mar 15, 2018 13:52
[2018-03-15] MEDS ORDERED: CARDIZEM60 MG ORAL (14:53)
[2018-03-15] MEDS ORDERED: METHYLPREDNISOL40 MG IVP (14:53)
--- NOTE | 2018-03-15 15:02 | Pulmonology Progress Note ---
Assessment/Plan Assessment/Plan Pulmonary Follow Up Note Assessment/Plan COPD on home O2 with ACUTE exacerbation Right upper lobe irregular scarring on CT chest Chronic hypercapnic and hypoxemic respiratory failure Protein calorie malnutrition [facility] resident Former smoker HTN PLAN: no change is steroids today labs adn cxr ordered for [place] Abx nebs and MDI Monitor for signs of a respiratory infection BiPAP 12/5 qHS and PRN, needs to continue nocturnal NIPPV @ facility--encourage RUL mass on CT will need out pt PET no PAH on echo Monitor volumes tobacco cessation FC, continue to discuss GOC dc planning Subjective Constitutional: Reports: no symptoms Respiratory: Reports: dry cough, shortness of breath, wheezing Allergies: Coded Allergies: CODEINE (Verified Allergy, Unknown, 03/09/18) PENICILLINS (Verified Allergy, Unknown, 03/09/18) SULFA (SULFONAMIDE ANTIBIOTICS) (Verified Allergy, Unknown, 03/09/18) Subjective noted iwth wheezing this am getting nebs no events no cp nv not getting oob used bipap at night no fever noted tolerating po feeling better Objective Vital Signs Noted General Appearance: WD/WN HEENT: normocephalic, anicteric Respiratory/Chest: expiratory wheezing Cardiovascular: normal rate, regular rhythm Abdomen: soft, non tender, no organomegaly Extremities: no cyanosis Neurologic/Psychiatric: industrial relations officer II-XII grossly normal, alert, oriented x 3, responsive Laboratory Tests 03/14/18 05:35: Troponin I 0.020, Pro-B-Type Natriuretic Peptide 686H, Thyroid Stimulating Hormone (TSH) 0.051L Current Medications Medications (Trade) Dose Ordered Sig/Leila Route PRN Reason Start Time Stop Time Status Last Admin Dose Admin Acetaminophen (Tylenol) 325 mg Q4HR PRN ORAL Mild Pain (Pain Scale 1-3) 03/10/18 05:15 04/09/18 05:14 03/10/18 12:24 Albuterol/ Ipratropium (Albuterol/ Ipratropium) 3 ml Q4HRT HHN 03/10/18 07:00 03/15/18 06:59 03/14/18 02:56 Ascorbic Acid (Vitamin C) 500 mg DAILY ORAL 03/10/18 09:00 04/09/18 08:59 03/13/18 08:29 Aspirin (ASA) 81 mg DAILY ORAL 03/10/18 09:00 04/09/18 08:59 03/13/18 08:29 Azithromycin (Zithromax) 250 mg DAILY ORAL 03/11/18 09:00 03/18/18 08:59 03/13/18 08:29 Budesonide (Pulmicort) 0.25 mg BID INH 03/10/18 09:00 04/09/18 08:59 03/13/18 19:22 Clonidine HCl (Catapres TTS-1) 1 patch ONCE A WEEK TDERMAL 03/10/18 09:00 04/09/18 08:59 03/10/18 10:05 Dextrose (Dextrose 50%) 25 ml Q30M PRN IV Hypoglycemia 03/10/18 06:30 04/09/18 06:29 Dextrose (Dextrose 50%) 50 ml Q30M PRN IV Hypoglycemia 03/10/18 06:30 04/09/18 06:29 Diltiazem HCl (Cardizem) 60 mg EVERY 8 HOURS ORAL 03/13/18 22:00 04/12/18 21:59 03/14/18 06:18 Diphenhydramine HCl (Benadryl) 25 mg Q6H PRN ORAL Itching 03/13/18 17:44 04/12/18 17:43 03/13/18 20:37 Docusate Sodium (Colace) 100 mg TWICE A DAY ORAL 03/10/18 09:00 04/09/18 08:59 03/13/18 17:10 Enoxaparin Sodium (Lovenox) 40 mg DAILY SUBQ 03/10/18 09:00 04/09/18 08:59 03/13/18 08:36 Folic Acid (Folate) 1 mg DAILY ORAL 03/10/18 09:00 04/09/18 08:59 03/13/18 08:29 Gabapentin (Neurontin) 300 mg THREE TIMES A DAY ORAL 03/10/18 09:00 04/09/18 08:59 03/13/18 17:10 Insulin Aspart (NovoLOG) BEFORE MEALS AND HS SUBQ 03/10/18 06:30 04/09/18 06:29 03/14/18 06:52 Insulin Aspart (NovoLOG) 1 units BEFORE MEALS SUBQ 03/10/18 06:30 04/09/18 06:29 03/14/18 06:52 Lorazepam (Ativan) 1 mg Q6H PRN ORAL For Anxiety 03/10/18 10:53 03/17/18 10:52 03/13/18 20:38 Magnesium Hydroxide (Mom) 30 ml DAILY PRN ORAL Constipation 03/10/18 05:15 04/09/18 05:14 Methylprednisolone Sodium Succinate (Solu-MEDROL) 40 mg EVERY 12 HOURS IVP 03/13/18 09:00 04/09/18 08:59 03/13/18 20:38 Olanzapine (ZyPREXA) 5 mg BEDTIME ORAL 03/10/18 21:00 04/09/18 20:59 03/13/18 20:38 Pantoprazole (Protonix) 40 mg DAILY ORAL 03/10/18 09:00 04/09/18 08:59 03/13/18 08:28 Tiotropium [place] (Spiriva Inhaler) 1 puff DAILY INH 03/11/18 09:00 04/10/18 08:59 03/13/18 09:17 Subjective ROS Limited/Unobtainable: No Allergies: Coded Allergies: CODEINE (Verified Allergy, Unknown, 03/09/18) PENICILLINS (Verified Allergy, Unknown, 03/09/18) SULFA (SULFONAMIDE ANTIBIOTICS) (Verified Allergy, Unknown, 03/09/18) Objective Last 24 Hour Vital Signs Date Time Temp Pulse Resp B/P (MAP) Pulse Ox O2 Delivery O2 Flow Rate FiO2 03/15/18 14:54 89 149/80 03/15/18 11:01 Nasal Cannula 03/15/18 11:01 Nasal Cannula 03/15/18 09:15 89 18 99 Nasal Cannula 2.0 28 03/15/18 09:05 89 18 97 Nasal Cannula 2.0 28 03/15/18 09:00 Nasal Cannula 3.0 03/15/18 08:00 98.0 82 16 149/80 (103) 96 03/15/18 08:00 74 03/15/18 07:08 Nasal Cannula 2.0 28 03/15/18 07:08 Nasal Cannula 03/15/18 07:08 97 Nasal Cannula 2.0 28 03/15/18 07:08 Nasal Cannula 03/15/18 05:58 75 136/78 03/15/18 04:00 75 03/15/18 03:54 97.0 81 20 136/78 (97) 96 03/15/18 02:16 77 20 100 Nasal Cannula 2.0 28 03/15/18 02:05 82 20 98 Nasal Cannula 2.0 28 03/15/18 00:53 78 93 03/15/18 00:00 73 03/15/18 00:00 98.0 73 20 129/72 (91) 100 03/14/18 23:54 98 21 97 Facial 28 03/14/18 23:49 76 18 100 Nasal Cannula 2.0 28 03/14/18 23:41 79 20 99 Nasal Cannula 2.0 28 03/14/18 21:42 89 119/69 03/14/18 21:11 89 18 100 Nasal Cannula 2.0 28 03/14/18 21:11 89 18 100 Nasal Cannula 2.0 28 03/14/18 21:00 Nasal Cannula 3.0 03/14/18 20:55 Nasal Cannula 2.0 28 03/14/18 20:55 99 Nasal Cannula 2.0 28 03/14/18 20:55 88 18 99 Nasal Cannula 2.0 28 03/14/18 20:55 88 18 99 Nasal Cannula 2.0 28 03/14/18 20:00 98.2 90 20 119/69 (86) 94 03/14/18 20:00 89 03/14/18 16:07 89 18 98 Nasal Cannula 2.0 28 03/14/18 16:00 97.9 91 18 124/60 (81) 98 03/14/18 16:00 83 03/14/18 15:57 87 17 96 Nasal Cannula 2.0 28 Intake and Output 03/14/18 03/15/18 19:00 07:00 Intake Total 660 ml 120 ml Output Total 200 ml Balance 460 ml 120 ml Intake Oral 660 ml 120 ml Output Urine Total 200 ml # Voids 1 Laboratory Tests 03/15/18 05:40: White Blood Count 6.1, Red Blood Count 4.04L, Hemoglobin 11.0L, Hematocrit 36.4L , Mean Corpuscular Volume 90, Mean Corpuscular Hemoglobin 27.3, Mean Corpuscular Hemoglobin Concent 30.2L, Red Cell Distribution Width 13.4, Platelet Count 203, Mean Platelet Volume 9.4, Neutrophils (%) (Auto) 82.0H, Lymphocytes (%) (Auto) 12.6L, Monocytes (%) (Auto) 4.7, Eosinophils (%) (Auto) 0.1, Basophils (%) (Auto) 0.6, Sodium Level 143, Potassium Level 4.4, Chloride Level 101, Carbon Dioxide Level 40H, Blood Urea Nitrogen 15, Creatinine 0.6, Estimat Glomerular Filtration Rate , Glucose Level 197H, Calcium Level 8.8 Current Medications Medications (Trade) Dose Ordered Sig/Leila Route PRN Reason Start Time Stop Time Status Last Admin Dose Admin Acetaminophen (Tylenol) 325 mg Q4HR PRN ORAL Mild Pain (Pain Scale 1-3) 03/10/18 05:15 04/09/18 05:14 03/10/18 12:24 Ascorbic Acid (Vitamin C) 500 mg DAILY ORAL 03/10/18 09:00 04/09/18 08:59 03/15/18 10:01 Aspirin (ASA) 81 mg DAILY ORAL 03/10/18 09:00 04/09/18 08:59 03/15/18 10:01 Azithromycin (Zithromax) 250 mg DAILY ORAL 03/11/18 09:00 03/18/18 08:59 03/15/18 10:01 Budesonide (Pulmicort) 0.25 mg BID INH 03/10/18 09:00 04/09/18 08:59 03/15/18 09:05 Clonidine HCl (Catapres TTS-1) 1 patch ONCE A WEEK TDERMAL 03/10/18 09:00 04/09/18 08:59 03/10/18 10:05 Dextrose (Dextrose 50%) 25 ml Q30M PRN IV Hypoglycemia 03/10/18 06:30 04/09/18 06:29 Dextrose (Dextrose 50%) 50 ml Q30M PRN IV Hypoglycemia 03/10/18 06:30 04/09/18 06:29 Diltiazem HCl (Cardizem) 60 mg EVERY 8 HOURS ORAL 03/13/18 22:00 04/12/18 21:59 03/15/18 14:54 Diphenhydramine HCl (Benadryl) 25 mg Q6H PRN ORAL Itching 03/13/18 17:44 04/12/18 17:43 03/14/18 09:21 Docusate Sodium (Colace) 100 mg TWICE A DAY ORAL 03/10/18 09:00 04/09/18 08:59 03/15/18 10:02 Enoxaparin Sodium (Lovenox) 40 mg DAILY SUBQ 03/10/18 09:00 04/09/18 08:59 03/15/18 10:08 Folic Acid (Folate) 1 mg DAILY ORAL 03/10/18 09:00 04/09/18 08:59 03/15/18 10:01 Gabapentin (Neurontin) 300 mg THREE TIMES A DAY ORAL 03/10/18 09:00 04/09/18 08:59 03/15/18 10:01 Insulin Aspart (NovoLOG) BEFORE MEALS AND HS SUBQ 03/10/18 06:30 04/09/18 06:29 03/15/18 06:00 Insulin Aspart (NovoLOG) 1 units BEFORE MEALS SUBQ 03/10/18 06:30 04/09/18 06:29 03/15/18 06:01 Lorazepam (Ativan) 1 mg Q6H PRN ORAL For Anxiety 03/10/18 10:53 03/17/18 10:52 03/15/18 01:56 Magnesium Hydroxide (Mom) 30 ml DAILY PRN ORAL Constipation 03/10/18 05:15 04/09/18 05:14 Methylprednisolone Sodium Succinate (Solu-MEDROL) 40 mg EVERY 12 HOURS IVP 03/13/18 09:00 04/09/18 08:59 03/15/18 10:01 Olanzapine (ZyPREXA) 5 mg BEDTIME ORAL 03/10/18 21:00 04/09/18 20:59 03/14/18 21:42 Pantoprazole (Protonix) 40 mg DAILY ORAL 03/10/18 09:00 04/09/18 08:59 03/15/18 10:01 Regadenoson (Lexiscan) 0.4 mg ONCE PRN IV stress test 03/14/18 14:15 03/16/18 14:14 Tiotropium [place] (Spiriva Inhaler) 1 puff DAILY INH 03/11/18 09:00 04/10/18 08:59 03/15/18 09:48 Anibal Casey MD Mar 15, 2018 15:02
--- NOTE | 2018-03-15 15:39 | Diagnostic Imaging Report ---
Indications: Chest pain Technique: Single day single isotope protocol utilized. Initially, resting images obtained using IV administration 10.9 millicuries 99M technetium Myoview. Subsequently, patient underwent lexiscan stress testing. See cardiology report for details. During adenosine infusion, IV administration 30.4 mCi 99 M technetium Myoview. SPECT and planar images obtained. SPECT images gated to 8 phases of the cardiac cycle were also obtained, and reformatted into cine images for evaluation of ejection fraction. Comparison: none Findings: Presence or absence of symptoms during infusion is not described on the cardiology report. Per cardiology report, resting EKG demonstrates multifocal atrial rhythm with a few single ventricular premature complexes. Presence of ST changes is not described on the cardiology report. Imaging demonstrates normal poststress perfusion, no fixed nor reversible post stress perfusion defects. Normal cardiac chamber size. Calculated post stress ejection fraction 79%. No focal wall motion abnormality Impression: Nonischemic clinical response to pharmacologic stress, per cardiology report Nonischemic electrocardiographic response to pharmacologic stress, per cardiology report No imaging findings to suggest ischemia, at level of stress achieved. Calculated post stress ejection fraction greater than 70%
--- NOTE | 2018-03-15 18:44 | Infectious Diseases Prog Note ---
Assessment/Plan Problems: (1) COPD exacerbation Assessment & Plan: stop zithromax and taper steroids , continue inhalers as needed (2) End stage COPD Assessment & Plan: on BIPAP prn and nebulizer , was on hospice care before (3) Acute respiratory failure Assessment & Plan: due to the above , continue antibiotics and taper steroids. (4) Right upper lobe pulmonary nodule Assessment & Plan: repeat CT chest in three months Subjective Constitutional: Reports: no symptoms HEENT: Reports: no symptoms Respiratory: Reports: shortness of breath Breasts: Reports: no symptoms Cardiovascular: Reports: no symptoms Gastrointestinal/Abdominal: Reports: no symptoms Genitourinary: Reports: no symptoms Neurologic: Reports: no symptoms Psychiatric: Reports: no symptoms Skin: Reports: no symptoms Endocrine: Reports: no symptoms Hematologic: Reports: no symptoms Musculoskeletal: Reports: no symptoms Allergies: Coded Allergies: CODEINE (Verified Allergy, Unknown, 03/09/18) PENICILLINS (Verified Allergy, Unknown, 03/09/18) SULFA (SULFONAMIDE ANTIBIOTICS) (Verified Allergy, Unknown, 03/09/18) Objective Vital Signs Last 24 Hour Vital Signs Date Time Temp Pulse Resp B/P (MAP) Pulse Ox O2 Delivery O2 Flow Rate FiO2 03/15/18 18:21 134/76 (95) 03/15/18 16:00 85 03/15/18 16:00 97.9 108 20 159/85 (109) 99 03/15/18 14:54 89 149/80 03/15/18 12:00 80 03/15/18 12:00 98.2 80 16 148/78 (101) 97 03/15/18 11:01 Nasal Cannula 03/15/18 11:01 Nasal Cannula 03/15/18 09:15 89 18 99 Nasal Cannula 2.0 28 03/15/18 09:05 89 18 97 Nasal Cannula 2.0 28 03/15/18 09:00 Nasal Cannula 3.0 03/15/18 08:00 98.0 82 16 149/80 (103) 96 03/15/18 08:00 74 03/15/18 07:08 Nasal Cannula 2.0 28 03/15/18 07:08 Nasal Cannula 03/15/18 07:08 97 Nasal Cannula 2.0 28 03/15/18 07:08 Nasal Cannula 03/15/18 05:58 75 136/78 03/15/18 04:00 75 03/15/18 03:54 97.0 81 20 136/78 (97) 96 03/15/18 02:16 77 20 100 Nasal Cannula 2.0 28 03/15/18 02:05 82 20 98 Nasal Cannula 2.0 28 03/15/18 00:53 78 93 03/15/18 00:00 73 03/15/18 00:00 98.0 73 20 129/72 (91) 100 03/14/18 23:54 98 21 97 Facial 28 03/14/18 23:49 76 18 100 Nasal Cannula 2.0 28 03/14/18 23:41 79 20 99 Nasal Cannula 2.0 28 03/14/18 21:42 89 119/69 03/14/18 21:11 89 18 100 Nasal Cannula 2.0 28 03/14/18 21:11 89 18 100 Nasal Cannula 2.0 28 03/14/18 21:00 Nasal Cannula 3.0 03/14/18 20:55 Nasal Cannula 2.0 28 03/14/18 20:55 99 Nasal Cannula 2.0 28 03/14/18 20:55 88 18 99 Nasal Cannula 2.0 28 03/14/18 20:55 88 18 99 Nasal Cannula 2.0 28 03/14/18 20:00 98.2 90 20 119/69 (86) 94 03/14/18 20:00 89 Height (Feet): 5 Height (Inches): 5.00 Weight (Pounds): 118 General Appearance: WD/WN, no acute distress, cachetic HEENT: normocephalic, atraumatic, anicteric, mucous membranes moist, PERRL Respiratory/Chest: chest wall non-tender, lungs clear, no respiratory distress , no accessory muscle use, decreased breath sounds Cardiovascular: normal peripheral pulses, normal rate, regular rhythm, no gallop/murmur, no JVD Abdomen: normal bowel sounds, soft, non tender, no organomegaly, non distended , no mass, no scars Genitourinary: normal external genitalia Extremities: no cyanosis, no clubbing Skin: no rash, no lesions, no ulcers Neurologic/Psychiatric: alert, responsive Lymphatic: no neck adenopathy, no groin adenopathy Musculoskeletal: normal muscle bulk, no effusion Laboratory Tests Test 03/15/18 05:40 White Blood Count 6.1 K/UL (4.8-10.8) Red Blood Count 4.04 M/UL (4.20-5.40) L Hemoglobin 11.0 G/DL (12.0-16.0) L Hematocrit 36.4 % (37.0-47.0) L Mean Corpuscular Volume 90 FL (80-99) Mean Corpuscular Hemoglobin 27.3 PG (27.0-31.0) Mean Corpuscular Hemoglobin Concent 30.2 G/DL (32.0-36.0) L Red Cell Distribution Width 13.4 % (11.6-14.8) Platelet Count 203 K/UL (150-450) Mean Platelet Volume 9.4 FL (6.5-10.1) Neutrophils (%) (Auto) 82.0 % (45.0-75.0) H Lymphocytes (%) (Auto) 12.6 % (20.0-45.0) L Monocytes (%) (Auto) 4.7 % (1.0-10.0) Eosinophils (%) (Auto) 0.1 % (0.0-3.0) Basophils (%) (Auto) 0.6 % (0.0-2.0) Sodium Level 143 MMOL/L (136-145) Potassium Level 4.4 MMOL/L (3.5-5.1) Chloride Level 101 MMOL/L (98-107) Carbon Dioxide Level 40 MMOL/L (21-32) H Blood Urea Nitrogen 15 mg/dL (7-18) Creatinine 0.6 MG/DL (0.55-1.30) Estimat Glomerular Filtration Rate mL/min (>60) Glucose Level 197 MG/DL (74-106) H Calcium Level 8.8 MG/DL (8.5-10.1) Current Medications Medications (Trade) Dose Ordered Sig/Leila Route PRN Reason Start Time Stop Time Status Last Admin Dose Admin Acetaminophen (Tylenol) 325 mg Q4HR PRN ORAL Mild Pain (Pain Scale 1-3) 03/10/18 05:15 04/09/18 05:14 03/10/18 12:24 Albuterol/ Ipratropium (Albuterol/ Ipratropium) 3 ml Q4HRT HHN 03/15/18 19:00 03/20/18 18:59 Ascorbic Acid (Vitamin C) 500 mg DAILY ORAL 03/10/18 09:00 04/09/18 08:59 03/15/18 10:01 Aspirin (ASA) 81 mg DAILY ORAL 03/10/18 09:00 04/09/18 08:59 03/15/18 10:01 Azithromycin (Zithromax) 250 mg DAILY ORAL 03/11/18 09:00 03/18/18 08:59 03/15/18 10:01 Budesonide (Pulmicort) 0.25 mg BID INH 03/10/18 09:00 04/09/18 08:59 03/15/18 09:05 Clonidine HCl (Catapres TTS-1) 1 patch ONCE A WEEK TDERMAL 03/10/18 09:00 04/09/18 08:59 03/10/18 10:05 Dextrose (Dextrose 50%) 25 ml Q30M PRN IV Hypoglycemia 03/10/18 06:30 04/09/18 06:29 Dextrose (Dextrose 50%) 50 ml Q30M PRN IV Hypoglycemia 03/10/18 06:30 04/09/18 06:29 Diltiazem HCl (Cardizem) 60 mg EVERY 8 HOURS ORAL 03/13/18 22:00 04/12/18 21:59 03/15/18 14:54 Diphenhydramine HCl (Benadryl) 25 mg Q6H PRN ORAL Itching 03/13/18 17:44 04/12/18 17:43 03/14/18 09:21 Docusate Sodium (Colace) 100 mg TWICE A DAY ORAL 03/10/18 09:00 04/09/18 08:59 03/15/18 10:02 Enoxaparin Sodium (Lovenox) 40 mg DAILY SUBQ 03/10/18 09:00 04/09/18 08:59 03/15/18 10:08 Folic Acid (Folate) 1 mg DAILY ORAL 03/10/18 09:00 04/09/18 08:59 03/15/18 10:01 Gabapentin (Neurontin) 300 mg THREE TIMES A DAY ORAL 03/10/18 09:00 04/09/18 08:59 03/15/18 17:32 Insulin Aspart (NovoLOG) BEFORE MEALS AND HS SUBQ 03/10/18 06:30 04/09/18 06:29 03/15/18 17:28 Insulin Aspart (NovoLOG) 1 units BEFORE MEALS SUBQ 03/10/18 06:30 04/09/18 06:29 03/15/18 17:27 Lorazepam (Ativan) 1 mg Q6H PRN ORAL For Anxiety 03/10/18 10:53 03/17/18 10:52 03/15/18 01:56 Magnesium Hydroxide (Mom) 30 ml DAILY PRN ORAL Constipation 03/10/18 05:15 04/09/18 05:14 Olanzapine (ZyPREXA) 5 mg BEDTIME ORAL 03/10/18 21:00 04/09/18 20:59 03/14/18 21:42 Pantoprazole (Protonix) 40 mg DAILY ORAL 03/10/18 09:00 04/09/18 08:59 03/15/18 10:01 Prednisone (predniSONE) 40 mg DAILY ORAL 03/16/18 09:00 04/15/18 08:59 Regadenoson (Lexiscan) 0.4 mg ONCE PRN IV stress test 03/14/18 14:15 03/16/18 14:14 Tiotropium [place] (Spiriva Inhaler) 1 puff DAILY INH 03/11/18 09:00 04/10/18 08:59 03/15/18 09:48 Ramírez Barry M.D. Mar 15, 2018 18:44
--- NOTE | 2018-03-15 23:16 | General Progress Note ---
Assessment/Plan Problem List: (1) encephalopathy due to toxin Status: doing well, stable, progressing Assessment/Plan Ativan prn provided ro/st zyprexa 5mg qhs Subjective Neurologic/Psychiatric: Reports: anxiety, depressed Allergies: Coded Allergies: CODEINE (Verified Allergy, Unknown, 03/09/18) PENICILLINS (Verified Allergy, Unknown, 03/09/18) SULFA (SULFONAMIDE ANTIBIOTICS) (Verified Allergy, Unknown, 03/09/18) Objective Last 24 Hour Vital Signs Date Time Temp Pulse Resp B/P (MAP) Pulse Ox O2 Delivery O2 Flow Rate FiO2 03/15/18 21:21 101 03/15/18 21:00 Nasal Cannula 3.0 03/15/18 20:00 99.3 101 22 125/73 (90) 98 03/15/18 19:35 99 20 100 Nasal Cannula 2.0 28 03/15/18 19:25 98 20 98 Nasal Cannula 2.0 28 03/15/18 18:21 134/76 (95) 03/15/18 16:00 85 03/15/18 16:00 97.9 108 20 159/85 (109) 99 03/15/18 14:54 89 149/80 03/15/18 12:00 80 03/15/18 12:00 98.2 80 16 148/78 (101) 97 03/15/18 11:01 Nasal Cannula 03/15/18 11:01 Nasal Cannula 03/15/18 09:15 89 18 99 Nasal Cannula 2.0 28 03/15/18 09:05 89 18 97 Nasal Cannula 2.0 28 03/15/18 09:00 Nasal Cannula 3.0 03/15/18 08:00 98.0 82 16 149/80 (103) 96 03/15/18 08:00 74 03/15/18 07:08 Nasal Cannula 2.0 28 03/15/18 07:08 Nasal Cannula 03/15/18 07:08 97 Nasal Cannula 2.0 28 03/15/18 07:08 Nasal Cannula 03/15/18 05:58 75 136/78 03/15/18 04:00 75 03/15/18 03:54 97.0 81 20 136/78 (97) 96 03/15/18 02:16 77 20 100 Nasal Cannula 2.0 28 03/15/18 02:05 82 20 98 Nasal Cannula 2.0 28 03/15/18 00:53 78 93 03/15/18 00:00 73 03/15/18 00:00 98.0 73 20 129/72 (91) 100 03/14/18 23:54 98 21 97 Facial 28 03/14/18 23:49 76 18 100 Nasal Cannula 2.0 28 03/14/18 23:41 79 20 99 Nasal Cannula 2.0 28 Intake and Output 03/14/18 03/15/18 19:00 07:00 Intake Total 660 ml 120 ml Output Total 200 ml Balance 460 ml 120 ml Intake Oral 660 ml 120 ml Output Urine Total 200 ml # Voids 1 Laboratory Tests 03/15/18 05:40: White Blood Count 6.1, Red Blood Count 4.04L, Hemoglobin 11.0L, Hematocrit 36.4L , Mean Corpuscular Volume 90, Mean Corpuscular Hemoglobin 27.3, Mean Corpuscular Hemoglobin Concent 30.2L, Red Cell Distribution Width 13.4, Platelet Count 203, Mean Platelet Volume 9.4, Neutrophils (%) (Auto) 82.0H, Lymphocytes (%) (Auto) 12.6L, Monocytes (%) (Auto) 4.7, Eosinophils (%) (Auto) 0.1, Basophils (%) (Auto) 0.6, Sodium Level 143, Potassium Level 4.4, Chloride Level 101, Carbon Dioxide Level 40H, Blood Urea Nitrogen 15, Creatinine 0.6, Estimat Glomerular Filtration Rate , Glucose Level 197H, Calcium Level 8.8 Height (Feet): 5 Height (Inches): 5.00 Weight (Pounds): 118 General Appearance: no apparent distress, alert Neurologic: oriented x 3, responsive, depressed affect Sheyla Lan MD Mar 15, 2018 23:16
[2018-03-16] VITALS: BP 122/71
[2018-03-16] MEDS: Budesonide HHN 0.25mg/2ml ud INH SCH ×2 (02:15→09:20)
[2018-03-16] MEDS: Albuterol/Ipratropium 3ml neb HHN SCH ×4 (03:27→15:20)
[2018-03-16 04:00] VITALS: BP 149/90
[2018-03-16] MEDS: dilTIAZem HCl 60mg tab ORAL SCH ×2 (05:50→13:05)
[2018-03-16] MEDS: NovoLOG Insulin Flexpen SUBQ SCH ×4 (05:51→11:31)
[2018-03-16 08:00] VITALS: BP 133/85
[2018-03-16] MEDS: Ascorbic Acid 500mg tab ORAL SCH (08:11)
[2018-03-16] MEDS: Docusate 100mg cap ORAL SCH (08:11)
[2018-03-16] MEDS: Aspirin Baby 81mg ORAL SCH (08:12)
[2018-03-16] MEDS: Enoxaparin 40mg Inj SUBQ SCH (08:13)
--- NOTE | 2018-03-16 08:50 | Pulmonology Progress Note ---
Assessment/Plan Problems: (1) COPD exacerbation (2) Right upper lobe pulmonary nodule (3) Acute respiratory failure (4) End stage COPD (5) encephalopathy due to toxin Assessment/Plan ASSESSMENT: 12 mm RUL nodule COPD on home O2 with ACUTE exacerbation Chronic hypercapnic and hypoxemic respiratory failure Protein calorie malnutrition longterm resident Former smoker HTN PLAN: RTC and PRN HHN's Prednisone 40 and taper ---> 40/40/30/30/20/20/10/10 Off Abx Continue BUDESONIDE HHN BID Continue Spiriva, should optimize regimen as an outpatient (should likely be on LABA/LAMA/ICS) Monitor for signs of a respiratory infection BiPAP 12/5 qHS and PRN, needs to continue nocturnal NIPPV @ facility - ENCOURAGE COMPLIANCE PET/CT as an outpatient ---> WOULD DO AT [facility] WITH NAVIGATIONAL/SUPERD PROTOCOL on CHEST with plan for NAVIGATIONAL BRONCHOSCOPY BASED ON RESULTS Monitor volumes Continue to abstain from smoking FC, continue to discuss GOC Stable for D/C from a PULMONARY STANDPOINT, can F/U with me in 1-2 weeks or earlier PRN, call to make an appointment Subjective Allergies: Coded Allergies: CODEINE (Verified Allergy, Unknown, 03/09/18) PENICILLINS (Verified Allergy, Unknown, 03/09/18) SULFA (SULFONAMIDE ANTIBIOTICS) (Verified Allergy, Unknown, 03/09/18) Subjective AFVSS, O2 needs stable Refused BiPAP States less SOB, no cough, no CP, no F/C Objective Last 24 Hour Vital Signs Date Time Temp Pulse Resp B/P (MAP) Pulse Ox O2 Delivery O2 Flow Rate FiO2 03/16/18 07:03 89 16 Nasal Cannula 2.0 03/16/18 07:03 89 16 99 Nasal Cannula 2.0 28 03/16/18 07:02 89 16 99 Nasal Cannula 2.0 03/16/18 06:59 81 16 99 Nasal Cannula 2.0 03/16/18 06:58 99 Nasal Cannula 2.0 28 03/16/18 06:58 Nasal Cannula 2.0 28 03/16/18 06:55 81 16 99 Nasal Cannula 2.0 03/16/18 05:50 75 03/16/18 04:00 81 03/16/18 04:00 96.9 81 21 149/90 (109) 100 03/16/18 03:41 86 20 99 Nasal Cannula 2.0 28 03/16/18 03:28 86 18 99 Nasal Cannula 2.0 28 03/16/18 02:15 98 18 99 Nasal Cannula 2.0 28 03/16/18 00:00 98.7 87 20 122/71 (88) 98 03/15/18 23:35 85 20 100 Nasal Cannula 2.0 28 03/15/18 23:24 75 18 100 Nasal Cannula 2.0 28 03/15/18 23:20 90 03/15/18 21:21 101 03/15/18 21:00 Nasal Cannula 3.0 03/15/18 20:00 99.3 101 22 125/73 (90) 98 03/15/18 19:35 99 18 100 Nasal Cannula 2.0 28 03/15/18 19:35 99 20 100 Nasal Cannula 2.0 28 03/15/18 19:25 98 20 98 Nasal Cannula 2.0 28 03/15/18 19:25 Nasal Cannula 2.0 28 03/15/18 19:25 100 Nasal Cannula 2.0 28 03/15/18 19:02 104 03/15/18 18:21 134/76 (95) 03/15/18 16:00 85 03/15/18 16:00 97.9 108 20 159/85 (109) 99 03/15/18 14:54 89 149/80 03/15/18 12:00 80 03/15/18 12:00 98.2 80 16 148/78 (101) 97 03/15/18 11:01 Nasal Cannula 03/15/18 11:01 Nasal Cannula 03/15/18 09:15 89 18 99 Nasal Cannula 2.0 28 03/15/18 09:05 89 18 97 Nasal Cannula 2.0 28 03/15/18 09:00 Nasal Cannula 3.0 Intake and Output 03/15/18 03/16/18 18:59 06:59 Intake Total 240 ml 240 ml Output Total 450 ml Balance -210 ml 240 ml Intake Oral 240 ml 240 ml Output Urine Total 450 ml # Voids 1 2 # Bowel Movements 1 1 General Appearance: no acute distress, cachetic HEENT: normocephalic, atraumatic, anicteric, mucous membranes moist Respiratory/Chest: rhonchi - faint scattered, distant Cardiovascular: normal peripheral pulses, normal rate, regular rhythm Abdomen: normal bowel sounds, soft, non tender, no organomegaly, non distended , no mass Extremities: no cyanosis, no clubbing, no edema Current Medications Medications (Trade) Dose Ordered Sig/Leila Route PRN Reason Start Time Stop Time Status Last Admin Dose Admin Acetaminophen (Tylenol) 325 mg Q4HR PRN ORAL Mild Pain (Pain Scale 1-3) 03/10/18 05:15 04/09/18 05:14 03/10/18 12:24 Albuterol/ Ipratropium (Albuterol/ Ipratropium) 3 ml Q4HRT HHN 03/15/18 19:00 03/20/18 18:59 03/16/18 06:52 Ascorbic Acid (Vitamin C) 500 mg DAILY ORAL 03/10/18 09:00 04/09/18 08:59 03/16/18 08:11 Aspirin (ASA) 81 mg DAILY ORAL 03/10/18 09:00 04/09/18 08:59 03/16/18 08:12 Budesonide (Pulmicort) 0.25 mg BID INH 03/10/18 09:00 04/09/18 08:59 03/16/18 02:15 Clonidine HCl (Catapres TTS-1) 1 patch ONCE A WEEK TDERMAL 03/10/18 09:00 04/09/18 08:59 03/10/18 10:05 Dextrose (Dextrose 50%) 25 ml Q30M PRN IV Hypoglycemia 03/10/18 06:30 04/09/18 06:29 Dextrose (Dextrose 50%) 50 ml Q30M PRN IV Hypoglycemia 03/10/18 06:30 04/09/18 06:29 Diltiazem HCl (Cardizem) 60 mg EVERY 8 HOURS ORAL 03/13/18 22:00 04/12/18 21:59 03/16/18 05:50 Diphenhydramine HCl (Benadryl) 25 mg Q6H PRN ORAL Itching 03/13/18 17:44 04/12/18 17:43 03/14/18 09:21 Docusate Sodium (Colace) 100 mg TWICE A DAY ORAL 03/10/18 09:00 04/09/18 08:59 03/16/18 08:11 Enoxaparin Sodium (Lovenox) 40 mg DAILY SUBQ 03/10/18 09:00 04/09/18 08:59 03/16/18 08:13 Folic Acid (Folate) 1 mg DAILY ORAL 03/10/18 09:00 04/09/18 08:59 03/16/18 08:12 Gabapentin (Neurontin) 300 mg THREE TIMES A DAY ORAL 03/10/18 09:00 04/09/18 08:59 03/16/18 08:11 Insulin Aspart (NovoLOG) BEFORE MEALS AND HS SUBQ 03/10/18 06:30 04/09/18 06:29 03/16/18 05:52 Insulin Aspart (NovoLOG) 1 units BEFORE MEALS SUBQ 03/10/18 06:30 04/09/18 06:29 03/16/18 05:51 Lorazepam (Ativan) 1 mg Q6H PRN ORAL For Anxiety 03/10/18 10:53 03/17/18 10:52 03/15/18 23:50 Magnesium Hydroxide (Mom) 30 ml DAILY PRN ORAL Constipation 03/10/18 05:15 04/09/18 05:14 Olanzapine (ZyPREXA) 5 mg BEDTIME ORAL 03/10/18 21:00 04/09/18 20:59 03/15/18 20:04 Pantoprazole (Protonix) 40 mg DAILY ORAL 03/10/18 09:00 04/09/18 08:59 03/16/18 08:12 Prednisone (predniSONE) 40 mg DAILY ORAL 03/16/18 09:00 04/15/18 08:59 03/16/18 08:12 Regadenoson (Lexiscan) 0.4 mg ONCE PRN IV stress test 03/14/18 14:15 03/16/18 14:14 Tiotropium [place] (Spiriva Inhaler) 1 puff DAILY INH 03/11/18 09:00 04/10/18 08:59 03/15/18 09:48 Remy Moise MD Mar 16, 2018 08:50
[2018-03-16 12:00] VITALS: BP 146/86
--- NOTE | 2018-03-16 13:27 | General Progress Note ---
Assessment/Plan Assessment/Plan S: I am feeling better O: Appears comfortable, denies chest pain. Has Baseline sob. PHYSICAL EXAMINATION: HEAD AND NECK: Atraumatic and normocephalic. CHEST: Diffuse bronchial breathing sounds. Negative for crackles. HEART: S1, S2. Regular rate and rhythm. Negative for S3. Negative for S4. ABDOMEN: Soft. No organomegaly. MUSCULOSKELETAL: Atrophied musculature. No gross lateralized motor deficits. NEUROLOGIC: Awake, alert, and oriented x3. Medication : Reviewed and reconciled in the chart. MPI: reviewed and unremarkable ASSESSMENT: 1. Acute on chronic COPD exacerbation : resolved 2. End-stage COPD - the patient refused hospice care and currently Full Code. 3. Hypertension. with episodes of SVT 4. Diabetes type 2. 5. Anemia. 6. Malnourishment, mild. 7. GI and DVT prophylaxis. 8. RUL pulmonary nodule Plan: Patient forfeited additional diagnostic cancer workup, given her current condition Patient has end stage COPD, on prior hospice care. Will followup as outpatient Subjective Allergies: Coded Allergies: CODEINE (Verified Allergy, Unknown, 03/09/18) PENICILLINS (Verified Allergy, Unknown, 03/09/18) SULFA (SULFONAMIDE ANTIBIOTICS) (Verified Allergy, Unknown, 03/09/18) Objective Last 24 Hour Vital Signs Date Time Temp Pulse Resp B/P (MAP) Pulse Ox O2 Delivery O2 Flow Rate FiO2 03/16/18 13:05 93 146/86 03/16/18 12:00 93 03/16/18 12:00 98.2 87 20 146/86 (106) 99 03/16/18 11:50 92 16 98 Nasal Cannula 2.0 28 03/16/18 11:40 85 18 99 Nasal Cannula 2.0 28 03/16/18 11:40 28 03/16/18 09:00 Nasal Cannula 3.0 03/16/18 08:00 104 03/16/18 08:00 97.4 104 20 133/85 (101) 95 03/16/18 07:03 89 16 Nasal Cannula 2.0 28 03/16/18 07:03 89 16 99 Nasal Cannula 2.0 28 03/16/18 07:02 89 16 99 Nasal Cannula 2.0 28 03/16/18 06:59 81 16 99 Nasal Cannula 2.0 28 03/16/18 06:58 99 Nasal Cannula 2.0 28 03/16/18 06:58 Nasal Cannula 2.0 28 03/16/18 06:55 81 16 99 Nasal Cannula 2.0 28 03/16/18 05:50 75 03/16/18 04:00 81 03/16/18 04:00 96.9 81 21 149/90 (109) 100 03/16/18 03:41 86 20 99 Nasal Cannula 2.0 28 03/16/18 03:28 86 18 99 Nasal Cannula 2.0 28 03/16/18 02:15 98 18 99 Nasal Cannula 2.0 28 03/16/18 00:00 98.7 87 20 122/71 (88) 98 03/15/18 23:35 85 20 100 Nasal Cannula 2.0 28 03/15/18 23:24 75 18 100 Nasal Cannula 2.0 28 03/15/18 23:20 90 03/15/18 21:21 101 03/15/18 21:00 Nasal Cannula 3.0 03/15/18 20:00 99.3 101 22 125/73 (90) 98 03/15/18 19:35 99 18 100 Nasal Cannula 2.0 28 03/15/18 19:35 99 20 100 Nasal Cannula 2.0 28 03/15/18 19:25 98 20 98 Nasal Cannula 2.0 28 03/15/18 19:25 Nasal Cannula 2.0 28 03/15/18 19:25 100 Nasal Cannula 2.0 28 03/15/18 19:02 104 03/15/18 18:21 134/76 (95) 03/15/18 16:00 85 03/15/18 16:00 97.9 108 20 159/85 (109) 99 03/15/18 14:54 89 149/80 Intake and Output 03/15/18 03/16/18 19:00 07:00 Intake Total 240 ml 240 ml Output Total 450 ml Balance -210 ml 240 ml Intake Oral 240 ml 240 ml Output Urine Total 450 ml # Voids 1 2 # Bowel Movements 1 1 Height (Feet): 5 Height (Inches): 5.00 Weight (Pounds): 118 Bri Carranza MD Mar 16, 2018 13:27
--- NOTE | 2018-03-16 14:59 | Infectious Diseases Prog Note ---
Assessment/Plan Problems: (1) COPD exacerbation Assessment & Plan: S/P zithromax for 5 days , taper steroids , continue inhalers as needed (2) End stage COPD Assessment & Plan: on BIPAP prn and nebulizer , was on hospice care before (3) Acute respiratory failure Assessment & Plan: due to the above , continue antibiotics and taper steroids. (4) Right upper lobe pulmonary nodule Assessment & Plan: repeat CT chest in three months Subjective Constitutional: Reports: no symptoms HEENT: Reports: no symptoms Respiratory: Reports: no symptoms Breasts: Reports: no symptoms Cardiovascular: Reports: no symptoms Gastrointestinal/Abdominal: Reports: no symptoms Genitourinary: Reports: no symptoms Neurologic: Reports: no symptoms Psychiatric: Reports: no symptoms Skin: Reports: no symptoms Endocrine: Reports: no symptoms Hematologic: Reports: no symptoms Musculoskeletal: Reports: no symptoms Allergies: Coded Allergies: CODEINE (Verified Allergy, Unknown, 03/09/18) PENICILLINS (Verified Allergy, Unknown, 03/09/18) SULFA (SULFONAMIDE ANTIBIOTICS) (Verified Allergy, Unknown, 03/09/18) Objective Vital Signs Last 24 Hour Vital Signs Date Time Temp Pulse Resp B/P (MAP) Pulse Ox O2 Delivery O2 Flow Rate FiO2 03/16/18 13:05 93 146/86 03/16/18 12:00 93 03/16/18 12:00 98.2 87 20 146/86 (106) 99 03/16/18 11:50 92 16 98 Nasal Cannula 2.0 03/16/18 11:40 85 18 99 Nasal Cannula 2.0 03/16/18 11:40 28 03/16/18 09:00 Nasal Cannula 3.0 03/16/18 08:00 104 03/16/18 08:00 97.4 104 20 133/85 (101) 95 03/16/18 07:03 89 16 Nasal Cannula 2.0 28 03/16/18 07:03 89 16 99 Nasal Cannula 2.0 28 03/16/18 07:02 89 16 99 Nasal Cannula 2.0 28 03/16/18 06:59 81 16 99 Nasal Cannula 2.0 28 03/16/18 06:58 99 Nasal Cannula 2.0 28 03/16/18 06:58 Nasal Cannula 2.0 28 03/16/18 06:55 81 16 99 Nasal Cannula 2.0 28 03/16/18 05:50 75 03/16/18 04:00 81 03/16/18 04:00 96.9 81 21 149/90 (109) 100 03/16/18 03:41 86 20 99 Nasal Cannula 2.0 28 03/16/18 03:28 86 18 99 Nasal Cannula 2.0 28 03/16/18 02:15 98 18 99 Nasal Cannula 2.0 28 03/16/18 00:00 98.7 87 20 122/71 (88) 98 03/15/18 23:35 85 20 100 Nasal Cannula 2.0 28 03/15/18 23:24 75 18 100 Nasal Cannula 2.0 28 03/15/18 23:20 90 03/15/18 21:21 101 03/15/18 21:00 Nasal Cannula 3.0 03/15/18 20:00 99.3 101 22 125/73 (90) 98 03/15/18 19:35 99 18 100 Nasal Cannula 2.0 28 03/15/18 19:35 99 20 100 Nasal Cannula 2.0 28 03/15/18 19:25 98 20 98 Nasal Cannula 2.0 28 03/15/18 19:25 Nasal Cannula 2.0 28 03/15/18 19:25 100 Nasal Cannula 2.0 28 03/15/18 19:02 104 03/15/18 18:21 134/76 (95) 03/15/18 16:00 85 03/15/18 16:00 97.9 108 20 159/85 (109) 99 Height (Feet): 5 Height (Inches): 5.00 Weight (Pounds): 118 General Appearance: WD/WN, no acute distress HEENT: normocephalic, atraumatic, anicteric, mucous membranes moist, PERRL Respiratory/Chest: chest wall non-tender, lungs clear, normal breath sounds, no respiratory distress, no accessory muscle use Cardiovascular: normal peripheral pulses, normal rate, regular rhythm, no gallop/murmur, no JVD Abdomen: normal bowel sounds, soft, non tender, no organomegaly, non distended , no mass, no scars Genitourinary: normal external genitalia Extremities: no cyanosis, no clubbing Skin: no rash, no lesions, no ulcers Neurologic/Psychiatric: alert, oriented x 3, responsive Lymphatic: no neck adenopathy, no groin adenopathy Musculoskeletal: normal muscle bulk, no effusion Current Medications Medications (Trade) Dose Ordered Sig/Leila Route PRN Reason Start Time Stop Time Status Last Admin Dose Admin Acetaminophen (Tylenol) 325 mg Q4HR PRN ORAL Mild Pain (Pain Scale 1-3) 03/10/18 05:15 04/09/18 05:14 03/10/18 12:24 Albuterol/ Ipratropium (Albuterol/ Ipratropium) 3 ml Q4HRT HHN 03/15/18 19:00 03/20/18 18:59 03/16/18 11:30 Ascorbic Acid (Vitamin C) 500 mg DAILY ORAL 03/10/18 09:00 04/09/18 08:59 03/16/18 08:11 Aspirin (ASA) 81 mg DAILY ORAL 03/10/18 09:00 04/09/18 08:59 03/16/18 08:12 Budesonide (Pulmicort) 0.25 mg BID INH 03/10/18 09:00 04/09/18 08:59 03/16/18 09:20 Clonidine HCl (Catapres TTS-1) 1 patch ONCE A WEEK TDERMAL 03/10/18 09:00 04/09/18 08:59 03/10/18 10:05 Dextrose (Dextrose 50%) 25 ml Q30M PRN IV Hypoglycemia 03/10/18 06:30 04/09/18 06:29 Dextrose (Dextrose 50%) 50 ml Q30M PRN IV Hypoglycemia 03/10/18 06:30 04/09/18 06:29 Diltiazem HCl (Cardizem) 60 mg EVERY 8 HOURS ORAL 03/13/18 22:00 04/12/18 21:59 03/16/18 13:05 Diphenhydramine HCl (Benadryl) 25 mg Q6H PRN ORAL Itching 03/13/18 17:44 04/12/18 17:43 03/14/18 09:21 Docusate Sodium (Colace) 100 mg TWICE A DAY ORAL 03/10/18 09:00 04/09/18 08:59 03/16/18 08:11 Enoxaparin Sodium (Lovenox) 40 mg DAILY SUBQ 03/10/18 09:00 04/09/18 08:59 03/16/18 08:13 Folic Acid (Folate) 1 mg DAILY ORAL 03/10/18 09:00 04/09/18 08:59 03/16/18 08:12 Gabapentin (Neurontin) 300 mg THREE TIMES A DAY ORAL 03/10/18 09:00 04/09/18 08:59 03/16/18 13:05 Insulin Aspart (NovoLOG) BEFORE MEALS AND HS SUBQ 03/10/18 06:30 04/09/18 06:29 03/16/18 11:31 Insulin Aspart (NovoLOG) 1 units BEFORE MEALS SUBQ 03/10/18 06:30 04/09/18 06:29 03/16/18 11:30 Lorazepam (Ativan) 1 mg Q6H PRN ORAL For Anxiety 03/10/18 10:53 03/17/18 10:52 03/15/18 23:50 Magnesium Hydroxide (Mom) 30 ml DAILY PRN ORAL Constipation 03/10/18 05:15 04/09/18 05:14 Olanzapine (ZyPREXA) 5 mg BEDTIME ORAL 03/10/18 21:00 04/09/18 20:59 03/15/18 20:04 Pantoprazole (Protonix) 40 mg DAILY ORAL 03/10/18 09:00 04/09/18 08:59 03/16/18 08:12 Prednisone (predniSONE) 40 mg DAILY ORAL 03/16/18 09:00 04/15/18 08:59 03/16/18 08:12 Tiotropium [place] (Spiriva Inhaler) 1 puff DAILY INH 03/11/18 09:00 04/10/18 08:59 03/16/18 09:28 Ramírez Barry M.D. Mar 16, 2018 14:59
--- NOTE | 2018-03-16 15:41 | Cardiac Electrophysiology PN ---
Assessment/Plan Assessment/Plan 1. Nonsustained ventricular tachycardia. Echocardiogram showed normal EF. Avoid electrolyte abnormalities. Ruled out [place] and avoid beta-blockers for severe COPD. On Cardizem Nuclear stress test showed no ischemia 2. Hypertension. On Cardizem 60 q 8 hr. 3. Severe COPD, on antibiotic and nebulizers 4. RUL mass on CT will need out pt PET Subjective Subjective Feeling better. In SR. Stress test was nonischemic. Objective Last 24 Hour Vital Signs Date Time Temp Pulse Resp B/P (MAP) Pulse Ox O2 Delivery O2 Flow Rate FiO2 03/16/18 15:37 85 16 99 Nasal Cannula 2.0 28 03/16/18 15:21 92 16 98 Nasal Cannula 2.0 28 03/16/18 15:21 28 03/16/18 13:05 93 146/86 03/16/18 12:00 93 03/16/18 12:00 98.2 87 20 146/86 (106) 99 03/16/18 11:50 92 16 98 Nasal Cannula 2.0 28 03/16/18 11:40 85 18 99 Nasal Cannula 2.0 28 03/16/18 11:40 28 03/16/18 09:00 Nasal Cannula 3.0 03/16/18 08:00 104 03/16/18 08:00 97.4 104 20 133/85 (101) 95 03/16/18 07:03 89 16 Nasal Cannula 2.0 28 03/16/18 07:03 89 16 99 Nasal Cannula 2.0 28 03/16/18 07:02 89 16 99 Nasal Cannula 2.0 28 03/16/18 06:59 81 16 99 Nasal Cannula 2.0 28 03/16/18 06:58 99 Nasal Cannula 2.0 28 03/16/18 06:58 Nasal Cannula 2.0 28 03/16/18 06:55 81 16 99 Nasal Cannula 2.0 28 03/16/18 05:50 75 03/16/18 04:00 81 03/16/18 04:00 96.9 81 21 149/90 (109) 100 03/16/18 03:41 86 20 99 Nasal Cannula 2.0 28 03/16/18 03:28 86 18 99 Nasal Cannula 2.0 28 03/16/18 02:15 98 18 99 Nasal Cannula 2.0 28 03/16/18 00:00 98.7 87 20 122/71 (88) 98 03/15/18 23:35 85 20 100 Nasal Cannula 2.0 28 03/15/18 23:24 75 18 100 Nasal Cannula 2.0 28 03/15/18 23:20 90 03/15/18 21:21 101 03/15/18 21:00 Nasal Cannula 3.0 03/15/18 20:00 99.3 101 22 125/73 (90) 98 03/15/18 19:35 99 18 100 Nasal Cannula 2.0 28 03/15/18 19:35 99 20 100 Nasal Cannula 2.0 28 03/15/18 19:25 98 20 98 Nasal Cannula 2.0 28 03/15/18 19:25 Nasal Cannula 2.0 28 03/15/18 19:25 100 Nasal Cannula 2.0 28 03/15/18 19:02 104 03/15/18 18:21 134/76 (95) 03/15/18 16:00 85 03/15/18 16:00 97.9 108 20 159/85 (109) 99 Intake and Output 03/15/18 03/16/18 19:00 07:00 Intake Total 240 ml 240 ml Output Total 450 ml Balance -210 ml 240 ml Intake Oral 240 ml 240 ml Output Urine Total 450 ml # Voids 1 2 # Bowel Movements 1 1 Objective HEAD AND NECK: No JVD. LUNGS: Coarse rhonchi. CARDIOVASCULAR: Irregular S1 and S2 and tachycardic. ABDOMEN: Soft. EXTREMITIES: No pitting edema. Damon Swartz MD Mar 16, 2018 15:41
[2018-03-16 16:00] VITALS: BP 137/81
--- NOTE | 2018-03-16 16:15 | Progress Note ---
DATE: 03/16/2018 SUBJECTIVE: The patient was in bed, in no acute distress. The patient has cognitive impairment. Episodes of agitation. He is anxious however he is able to answer the questions appropriately. The patient is more cognizant. MENTAL STATUS EXAMINATION: The patient is alert and oriented times self, place, and situation. Mood is anxious. Affect is constricted. Congruent with mood. Thought process is concrete. Thought content, no suicidal or homicidal ideation. Encephalopathy is improved. ASSESSMENT: 1. Anxiety disorder. 2. Depression. PLAN: The patient will be continued on current medication. Provide the patient with reality orientation and supportive therapy. We will continue to follow and readjust the medication. Sheyla Lan M.D. DR: Jerzy JOB#: [id number] CC:
--- NOTE | 2018-03-17 08:51 | Discharge Summary ---
Discharge Summary Discharge Summary _ DATE OF ADMISSION: 03/09/2018 DATE OF DISCHARGE: 03/16/2018 REASON FOR ADMISSION: 72 years old female, resident of [facility] facility , with past medical history of end-stage COPD, hypertension, diabetes mellitus, dementia, anxiety disorder, multiple episodes of pneumonia, transferred to the hospital due to worsening shortness of breath. Patient chronically oxygen dependent at the facility. Patient had been under hospice in the past. Currently out of the hospice services and full code. Upon evaluation in emergency department , ABG showed severe hypercapnia with PCO2 of 86, pH 7.33. CO2 40 on BMP. Potassium 3.0 ,magnesium 1.3 . Hemoglobin 11.2, hematocrit 26.6 . No leucocytosis. Urinalysis was negative for UTI . Chest x-ray revealed no acute cardiopulmonary pathology. Patient admitted with diagnose s acute on chronic COPD exacerbation, end-stage COPD, hypertension, diabetes mellitus type 2, anemia, malnutrition, CONSULTANTS: resource analyst Dr. Swartz pulmonary Dr. Moise ID specialist psychiatrist Dr. Lan [facility] COURSE: Patient admitted to telemetry floor. Assistant Golf Coach closely follow. Patient started on IV steroids and empiric antibiotics. Supplemental oxygen provided as needed to keep pulse oximetry above 92%. Pulmonary toilet provided around the clock and as needed with bronchodilator. Patient also started on steroid inhaler/ budesonide twice a day. BiPAP provided at night and as needed. Patient was counseled to continue abstinence from smoking. CT of the chest revealed. 12 mm irregular opacity in the right upper lobe, likely area of scarring, but small neoplasm was not excludable, difficult to biopsy. Recommended follow-up in [address] or PET /CT. No acute abnormality otherwise. No infiltrate. Hyperinflation consistent with COPD. Right lower lobe atelectasis and scarring. Small sliding hiatal hernia. Kyphosis and degenerative spondylosis. No evidence of compression fracture. Echocardiogram revealed preserved ejection fraction of 65% with mild left ventricular hypertrophy. No evidence of pericardial effusion. No evidence of wall motion abnormalities. No evidence of pulmonary hypertension. Right ventricular systolic pressure of 23. Infectious disease specialist followed. Blood culture were negative. No evidence of on pneumonia on CXR and CT chest. Patient status post 5 days treatment with azithromycin. Steroids gradually tapered and changed to oral upon discharge. Pharmacists closely followed. Serial troponin 2 were negative. EKG revealed no acute ischemic changes. Patient was ruled out for acute [place]. Pharmacists recommended to avoid beta blockers due to severe COPD. Blood pressure was managed with calcium channel mike/Cardizem and remained stable. The patient also noted to9 have episode of nonsustained ventricular tachycardia. To reiterate ,echocardiogram revealed preserved ejection fraction. No further episodes of nonsustained ventricular tachycardia. Electrolytes abnormalities (magnesium and potassium ) corrected. Assistant Golf Coach recommended to continue nocturnal BiPAP at the facility and encourage compliance. Assistant Golf Coach recommended to follow up in 3 months with PET/ CT as outpatient at [facility] with NAVIGATIONAL/SUPERD protocol on CHEST with plan for NAVIGATIONAL BRONCHOSCOPY based on results. Blood sugar was managed with sliding scale of insulin, remained stable. Button [place]yer recommendations implemented in plan of care. Hemoglobin and hematocrit were closely monitored with goal to keep hemoglobin above 7, remained stable. Supportive care provided. Bowel regimen instituted. Psychiatrist followed for anxiety disorder and depression. Patient was continued on current medications. Reality orientation and supportive therapy provided. Patient was cleared for discharge to [facility] facility by all consultants. Recommended to continue discussion regarding further goals of care and code status. FINAL DIAGNOSES: COPD with acute exacerbation Acute and chronic hypercapnic and hypoxemic respiratory failure Chronic oxygen dependency End-stage COPD Right upper lobe pulmonary nodule Protein calorie malnutrition Hypertension Diabetes mellitus History of smoking Anxiety disorder Depression Anemia DISCHARGE MEDICATIONS: See Medication Reconciliation list. DISCHARGE INSTRUCTIONS: Patient was discharged to the [facility] facility. Follow up with medical doctor at the facility. I have been assigned to dictate discharge summary for this account. I was not involved in the patient's management. Marlena Campbell NP Mar 17, 2018 08:51
== END 2018-03-16 16:10 | DRG 190 ==
LOC: EDBD 20:38 → EMR 21:05 → 2E 22:21 → EDBEDREQ 22:47 → 2E 03-10 10:29
DX: J44.1 Chronic obstructive pulmonary disease with (acute) exacerbation (principal); J96.22 Acute and chronic respiratory failure with hypercapnia; J96.21 Acute and chronic respiratory failure with hypoxia; G92 Toxic encephalopathy; E44.1 Mild protein-calorie malnutrition; I47.2 Ventricular tachycardia; I10 Essential (primary) hypertension; E11.9 Type 2 diabetes mellitus without complications; D64.9 Anemia, unspecified; Z99.81 Dependence on supplemental oxygen; R91.1 Solitary pulmonary nodule; Z87.891 Personal history of nicotine dependence; F41.9 Anxiety disorder, unspecified; F32.9 Major depressive disorder, single episode, unspecified; Z88.6 Allergy status to analgesic agent; Z88.0 Allergy status to penicillin; Z88.2 Allergy status to sulfonamides; K44.9 Diaphragmatic hernia without obstruction or gangrene; M40.209 Unspecified kyphosis, site unspecified; M47.9 Spondylosis, unspecified
CPT/HCPCS: 36415; 36600; 51702; 71045; 71250; 78452; 80048; 80053; 81003; 82550; 82553; 82803; 82962; 83605; 83735; 83880; 84100; 84443; 84484; 85007; 85025; 87040; 87081; 93005; 93017; 93306; 94640; 94660; 94664; 94760; 96361; 96374; 99284; 99285; J1815; J2785; J7620; J8499